=== PATIENT | female | born 1950 | race Caucasian/White ===

== ENCOUNTER 2022-10-06 16:30 | Inpatient (IN) | payer MEDICARE, MEDICAID, SELFPAY ==
[2022-10-06] VITALS (26 sets, daily range): BP systolic 128–179; BP diastolic 70–88; PULSE 92–109; RESP 18–27; TEMP 36.8–39.5; O2SAT 88–98
--- NOTE | ~2022-10-06 | CT_ITS ---
EXAMINATION: CTA chest PE protocol DATE: 10/06/2022 19:51 INDICATION: covid, tachycardia, SOB, concern PE TECHNIQUE: Computed tomography angiography (CTA) of the chest was performed with 100 mL Omnipaque-350 intravenous contrast timed to evaluate the pulmonary arteries. Coronal maximum intensity projection 3D-reconstructions were created by the technologist. The dose-length product (DLP) was 792.55 mGy-cm. Automated exposure control and iterative reconstruction technique were employed. COMPARISON: 10/06/2022. FINDINGS: Lung parenchyma and airways: Dependent atelectasis. Pleura: Unremarkable. Thoracic inlet, axillae and chest wall: Unremarkable. Thoracic aorta: Normal. Mediastinum: Dilated central pulmonary arteries as can be seen with pulmonary arterial hypertension. Heart and pericardium: Normal. Coronary artery calcifications: Mild. Upper abdomen: No significant finding. Bones: No acute osseous finding. Pulmonary arteries: Study quality: Motion limited examination. No pulmonary emboli detected. IMPRESSION: Motion limited examination. Within that constraint, no definite CT evidence of acute pulmonary embolu s. Reviewed, dictated and finalized at location K. HER RUNNER IMPRESSION: Motion limited examination. Within that constraint, no definite CT evidence of acute pulmonary embolus.
--- NOTE | ~2022-10-06 | XR_ITS ---
XR chest PICC line 10/09/2022 18:15 Indication: PICC line placement Procedure: AP portable chest Comparison: 10/06/2022 Findings: Right subclavian PICC line tip in the SVC. Shallow inspiration. No focal air space disease, pulmonary edema, pleural effusion or suspected pneumothorax. There is a sclerotic lesion in the left humerus which most likely represents a bone island, although metastatic disease is not excluded. Correlate for history of malignancy. Impression: 1: No acute cardiopulmonary disease. 2: Sclerotic lesion in the left humerus proximally which most likely represents a bone island, altho ugh metastatic disease is not excluded. Correlate for history of malignancy. Reviewed, dictated and finalized at location A. DRY WORKER Impression: 1: No acute cardiopulmonary disease. 2: Sclerotic lesion in the left humerus proximally which most likely represent s a bone island, although metastatic disease is not excluded. Correlate for his tory of malignancy.
--- NOTE | ~2022-10-06 | CT_ITS ---
EXAMINATION: CT brain wo con DATE: 10/07/2022 14:27 INDICATION: Altered mental status. TECHNIQUE: Computed tomography (CT) of the head was performed without intravenous contrast. The mA wa s adjusted according to patient size. Iterative reconstruction technique was employed. The dose-lengt h product was 605.33 mGy-cm. 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 There are scattered areas of low attenuation in the cerebral white matter, lik herson chronic small vessel ischemic disease. There is no intracranial hemorrhage, acute infarction, or abnormal intracranial mass lesion. There is ex vacuo dilatation of right lateral ventricle. There are likely changes of ocular lens replacement surgeries. The paranasal sinuses are clear. The mastoid ai r cells are normal. There is cerumen in right external auditory canal. IMPRESSION: 1. 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 Reviewed, dictated and finalized at location A. RIALS TECHNICIAN IMPRESSION: 1. 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
--- NOTE | ~2022-10-06 | US_ITS ---
EXAMINATION: US venous doppler [facility] DATE: 10/07/2022 17:26 INDICATION: covid +, BLE pain and swelling. TECHNIQUE: Grayscale images without and with compression and Doppler images of the bilateral lower ex tremity veins were obtained. COMPARISON: None FINDINGS: The right common femoral vein, profunda (deep) femoral vein, femoral vein, popliteal vein, peroneal v ein, posterior tibial veins, gastrocnemius vein, and greater saphenous vein are patent. The left common femoral vein, profunda femoral vein, femoral vein, popliteal vein, peroneal vein, pos terior tibial veins, gastrocnemius vein, and greater saphenous vein are patent. IMPRESSION: 1. Patent bilateral lower extremity veins. No evidence of deep venous thrombosis. Reviewed, dictated and finalized at location K. ETIC SURVEYOR IMPRESSION: 1. Patent bilateral lower extremity veins. No evidence of deep venous thrombos is.
--- NOTE | ~2022-10-06 | XR_ITS ---
EXAMINATION: XR chest 1V portable Exam Date/Time: 10/06/2022 16:55 MOSAICIST HISTORY: SOB, FEVER, COUGH, COVID + Comparison: None. RESULT: Lines, tubes, and devices: None. Lungs and pleura: Low volumes with crowding. Significant rotation. Ill-defined patchy bibasilar opac ities may represent atelectasis Cardiomediastinal silhouette: Stable. Other: No acute osseous or upper abdominal finding. IMPRESSION: Limited examination. No definite acute cardiopulmonary process. Reviewed, dictated and finalized at location K. ICIST
--- NOTE | 2022-10-06 16:53 | ED.GENADULT ---
HPI - General Adult General Chief complaint: Fever Stated complaint: COVID+ Time Seen by Provider: 10/06/22 16:36 History of Present Illness HPI narrative: 72-year-old female presented to the emergency department from [facility] for evaluation of increased difficulty breathing. Patient was diagnosed with COVID on 09/29. Patient was transferred due to hypoxia. Patient was placed on 4 L of oxygen by nasal cannula at the facility and was on 15 L nonrebreather by EMS. 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 Related Data Home Medications Medication Instructions Recorded Confirmed acetaminophen 500 mg tablet 500 mg PO Q6H PRN Pain 10/06/22 (Acetaminophen Extra Strength) buspirone 7.5 mg tablet 7.5 mg PO DAILY 10/06/22 ceftriaxone 1 gram intravenous IV ONCE 10/06/22 solution cholecalciferol (vitamin D3) 125 125 mcg PO DAILY 10/06/22 mcg (5,000 unit) tablet (Vitamin D3) cyanocobalamin (vitamin B-12) 500 500 mcg PO DAILY 10/06/22 mcg tablet (Vitamin B-12) duloxetine 60 mg capsule,delayed 60 mg PO DAILY 10/06/22 release furosemide 40 mg tablet (Lasix) 40 mg PO DAILY 10/06/22 gabapentin 300 mg capsule 300 mg PO TID 10/06/22 guaifenesin 600 mg tablet, 600 mg PO BID 10/06/22 extended release 12 hr (Mucinex) ibuprofen 600 mg tablet 600 mg PO Q6H PRN Pain 10/06/22 magnesium hydroxide 400 mg/5 mL 30 ml PO DAILY PRN Constipation 10/06/22 oral suspension (Milk of Magnesia) melatonin 3 mg tablet 6 mg PO HS PRN Insomnia 10/06/22 polyethylene glycol 3350 17 gram 17 g PO DAILY 10/06/22 oral powder packet (Gavilax) potassium chloride 20 mEq meq PO DAILY 10/06/22 tablet,extended release prednisone 10 mg tablet 30 mg PO DIRECTED 10/06/22 pregabalin 75 mg capsule (Lyrica) 75 mg PO BID 10/06/22 saliva stimulant comb. no.6 (Oral yoel 10/06/22 Relief Lozenges) sennosides 8.6 mg-docusate sodium 1 tab-cap PO BID 10/06/22 50 mg tablet tramadol 50 mg tablet 50 mg PO TID 10/06/22 undecylenic acid-zinc undecylenate applic topical TID 10/06/22 5 %-20 % topical cream Allergies Allergy/AdvReac Type Severity Reaction Status Date / Time No Known Allergies Allergy Verified 10/06/22 16:39 Review of Systems Review of Systems: CONSTITUTIONAL: Denies fever, chills, or sweats. EYES: Denies visual changes, redness, or discharge. ENT: Denies rhinorrhea, congestion, sore throat, or otalgia. CARDIOVASCULAR: Denies chest pain, palpitations, or edema. RESPIRATORY: See HPI GASTROINTESTINAL: Denies abdominal pain, nausea, vomiting, or diarrhea. GENITOURINARY: Denies dysuria or hematuria. SKIN: Denies rash or itching. MUSCULOSKELETAL: Patient reports chronic pain that is unchanged. NEUROLOGIC: Denies headache, numbness, or weakness. Exam Narrative: APPEARANCE: Well appearing, no pain, no distress, well-nourished. HEAD: normocephalic, atraumatic. EYES: PERRLA/EOMI, conjunctivae clear. NOSE: Normal no drainage NECK: Supple. No adenopathy, no masses. RESPIRATORY: Airway patent, respirations shallow but patient able to take deep breaths on respiration. Oxygenation improved with aggressive coughing. CARDIOVASCULAR: Regular rate and rhythm without murmurs rubs or gallops. ABDOMINAL: Soft, nontender, nondistended, normal bowel sounds MUSCULOSKELETAL: Moves all extremities. Strength/ROM intact, No edema, No calf tenderness. NEURO: Alert. Cranial nerves II through XII intact. Grossly intact SKIN: Warm, dry. Normal Color Course Course Emergency Course: Patient was febrile and this was treated with Tylenol and ibuprofen. Patient also had ice packs placed. Patient did become hypoxic to the 80s in the emergency department and did require oxygen. Patient did test positive for COVID. CTA was ordered to rule out pulmonary embolism. Discussion with the hospitalist it was also decided not to continue the patient on antibiotics due to no significant infiltra
--- NOTE | 2022-10-06 16:55 | PC.NURSE ---
NH staff advised pt last received 600mg Motrin at 1200 and 1g tylenol at 1400 today.
[2022-10-06] MEDS: IBUPROFEN 400 MG TABLET 800 MG PO (17:02)
[2022-10-06 17:15] LABS: Alveolar/Arterial O2 Gradient 45.1 mmHg; Base Excess ABG 2.8 mEq/l (+/-2.0); Fractional Inspired Oxygen 21 %; HCO3 ABG 26.5 mEq/l (22.0-26.0); Modified Allen's Test Pass; Oxygen Content ABG 19.8 %vol (16.0-22.0); Oxygen Saturation ABG 92.1 % (95.0-100.0); Oxyhemoglobin 90.6 % THb (90.0-100.0); PO2 ABG 59.1 mmHg (80.0-100.0); PO2 FiO2 Ratio Arterial Blood 2.81 %; Site Drawn LEFT RADIAL; Total Hemoglobin 15.6 g/dL (12.0-18.0); pH ABG 7.462 (7.350-7.450)
[2022-10-06 17:42] LABS: Basophils Absolute Auto 0.1 K/mm3 (0.0-0.1); Basophils Percent Auto 0.4 % (0.2-1.2); Hematocrit 46.1 % (37.0-47.0); Immature Granulocyte Absolute 0.32 K/mm3 (0.00-0.031); Immature Granulocyte Percent A 2.4 % (0-0.5); Lymphocytes Absolute Auto 1.57 K/mm3 (0.9-3.2); Lymphocytes Percent Auto 11.6 % (18.3-44.2); Mean Corpuscular HGB Conc 32.5 g/dl (32-36); Mean Corpuscular Hemoglobin 29.8 pg (26-34); Mean Corpuscular Volume 91.7 fl (80-100); Monocytes Absolute Auto 0.4 K/mm3 (0.1-0.6); Monocytes Percent Auto 3.1 % (2.6-8.5); Neutrophils Absolute Auto 11.2 K/mm3 (1.3-6.7); Neutrophils Percent Auto 82.5 % (45.5-73.1); Platelet Count Result 299 k/mm3 (150-375); Red Blood Count 5.03 M/mm3 (4.2-5.4); Red Cell Distribution Width 14.3 % (11.5-14.5); White Blood Count 13.5 K/mm3 (4.5-10.0)
[2022-10-06 18:00] LABS: Lactic Acid Reflex 3.2 mmol/L (0.7-2.0)
[2022-10-06] MEDS: ALBUTEROL SULFATE NEB 2.5 MG/3 ML INH 5 MG INHALATION (18:08)
[2022-10-06 18:20] LABS: Influenza A QL RT-PCR Negative (Negative); Influenza B QL RT-PCR Negative (Negative); RSV RNA, RT-PCR Negative (Negative); SARS-CoV-2 RNA PCR Positive
[2022-10-06 18:56] LABS: Alanine Aminotransferase 42 U/L (6-35); Albumin Level 4.1 g/dL (3.5-5.1); Alkaline Phosphatase 75 U/L (38-126); Anion Gap 8 mmol/L (8-16); Aspartate Amino Transferase 74 U/L (14-36); Bilirubin,Total 0.6 mg/dL (0.2-1.3); Blood Urea Nitrogen 17 mg/dL (7-17); Calcium 7.7 mg/dL (8.4-10.2); Carbon Dioxide 29 mmol/L (22-30); Chloride 94 mmol/L (98-107); Estimated CRCL calculation 79 ml/min; Estimated Glomerular Filt Rate > 60; Glucose 209 mg/dL (65-110); Sodium 131 mmol/L (137-145)
--- NOTE | 2022-10-06 20:18 | PM.IMHP ---
H&P: HPI History of Present Illness Date/Time: 10/06/22 20:18 Chief Complaint: Shortness of breath Narrative: This is a 72-year-old female with past medical history significant for generalized anxiety disorder, peripheral neuropathy, obesity. Patient was brought to the emergency room due to shortness of breath. In emergency room patient was found to have fever, patient tested positive for COVID. At the time of my visit patient was delirious unable to give any history which has been obtained upon reviewing medical record. Preliminary workup was significant for a blood gas was pH of 7.4, pCO2 38 PO2 59 A chest x-ray was reported as: IMPRESSION: Limited examination. No definite acute cardiopulmonary process. A CTA of the chest was reported as:\ FINDINGS:? Lung parenchyma and airways: Dependent atelectasis. Pleura: Unremarkable. Thoracic inlet, axillae and chest wall: Unremarkable. Thoracic aorta: Normal. Mediastinum: Dilated central pulmonary arteries as can be seen with pulmonary arterial hypertension. Heart and pericardium: Normal. Coronary artery calcifications: Mild. Upper abdomen: No significant finding. Bones: No acute osseous finding. Pulmonary arteries: Study quality: Motion limited examination. No pulmonary emboli detected. IMPRESSION: Motion limited examination. Within that constraint, no definite CT evidence of acute pulmonary embolus. Patient is been admitted for further evaluation management and treatment. Review of Systems Review of Systems: ROS unobtainable: Yes unobtainable due to mental status (Delirium) [facility] Social History Social History Smoking status: Never smoker Second hand tobacco smoke exposure: No Alcohol intake: never Substance use: never Substance use type: does not use Spiritual care concerns: No Meds Home Medications and Allergies Home Medications Medication Instructions Recorded Confirmed Type acetaminophen 500 mg tablet 500 mg PO Q6H PRN Pain 10/06/22 10/07/22 History (Acetaminophen Extra Strength) buspirone 7.5 mg tablet 7.5 mg PO DAILY 10/06/22 10/07/22 History cholecalciferol (vitamin D3) 125 125 mcg PO DAILY 10/06/22 10/07/22 History mcg (5,000 unit) tablet (Vitamin D3) cyanocobalamin (vitamin B-12) 500 500 mcg PO DAILY 10/06/22 10/07/22 History mcg tablet (Vitamin B-12) duloxetine 60 mg capsule,delayed 60 mg PO DAILY 10/06/22 10/07/22 History release furosemide 40 mg tablet (Lasix) 40 mg PO DAILY 10/06/22 10/07/22 History gabapentin 300 mg capsule 300 mg PO TID 10/06/22 10/07/22 History guaifenesin 600 mg tablet, 600 mg PO BID 10/06/22 10/07/22 History extended release 12 hr (Mucinex) ibuprofen 600 mg tablet 600 mg PO Q6H PRN Pain 10/06/22 10/07/22 History magnesium hydroxide 400 mg/5 mL 30 ml PO DAILY PRN Constipation 10/06/22 10/07/22 History oral suspension (Milk of Magnesia) melatonin 3 mg tablet 6 mg PO HS PRN Insomnia 10/06/22 10/07/22 History polyethylene glycol 3350 17 gram 17 g PO DAILY 10/06/22 10/07/22 History oral powder packet (Gavilax) potassium chloride 20 mEq 20 meq PO DAILY 10/06/22 10/07/22 History tablet,extended release prednisone 10 mg tablet 30 mg PO DIRECTED 10/06/22 10/07/22 History pregabalin 75 mg capsule (Lyrica) 75 mg PO BID 10/06/22 10/07/22 History saliva stimulant comb. no.6 (Oral 1 yoel PO PRN PRN Rash 10/06/22 10/07/22 History Relief Lozenges) sennosides 8.6 mg-docusate sodium 1 tab-cap PO BID 10/06/22 10/07/22 History 50 mg tablet tramadol 50 mg tablet 50 mg PO TID 10/06/22 10/07/22 History undecylenic acid-zinc undecylenate 1 applic topical TID PRN for 10/06/22 10/07/22 History 5 %-20 % topical cream fungal rash Allergies Allergy/AdvReac Type Severity Reaction Status Date / Time No Known Allergies Allergy Verified 10/06/22 16:39 Vital Signs Vital Signs - 24 hr 10/06/22 16:34 10/06/22 17:54 10/06/22 17:56 Temperature 102.9 F H 103.1 F H
[2022-10-06 20:40] LABS: Reflex Lactic Acid Yes or No Add Lactic
[2022-10-06] MEDS: IBUPROFEN IV 800 MG/200 ML 800 MG/200 ML BAG 400 MG IVPB (20:45)
[2022-10-06 21:44] LABS: Lactic Acid 1.4 mmol/L (0.7-2.0)
[2022-10-07] VITALS (16 sets, daily range): BP systolic 113–149; BP diastolic 50–85; PULSE 81–95; RESP 16–22; TEMP 36.6–37.1; O2SAT 94–99; BMI 42.2
[2022-10-07] MEDS: ALBUTEROL SULFATE NEB 2.5 MG/3 ML INH 5 MG INHALATION ×4 (02:41→21:08)
[2022-10-07] MEDS: cefTRIAXone 2 GM in SODIUM CHLORIDE 0.9% IV 100 ML 200 ML IVPB ×2 (02:43→21:39)
[2022-10-07] MEDS: polyethylene glycoL 3350 17 GM POWD.PACK PO (09:25)
[2022-10-07] MEDS: GABAPENTIN 300 MG CAPSULE PO ×3 (09:25→17:28)
[2022-10-07] MEDS: DULoxetine HCL 60 MG CAPSULE.DR PO (09:25)
[2022-10-07] MEDS: ENOXAPARIN 40 MG/0.4 ML SYRINGE SUB-Q (09:25)
[2022-10-07] MEDS: PREGABALIN (*CRX) 75 MG CAPSULE PO ×2 (09:26→17:28)
[2022-10-07] MEDS: CYANOCOBALAMIN 500 MCG TABLET PO (09:26)
[2022-10-07] MEDS: SENNA/DOCUSATE SODIUM TABLET 1 TAB PO ×2 (09:26→17:28)
[2022-10-07] MEDS: busPIRone HCL 5 MG TABLET PO (09:26)
[2022-10-07] MEDS: CHOLECALCIFEROL 1,000 UNITS TABLET 5000 UNITS PO (09:26)
[2022-10-07] MEDS: traMADol HCL (*CRX) 50 MG TABLET PO ×3 (09:26→17:28)
[2022-10-07] MEDS: busPIRone HCL 2.5 MG TABLET PO (09:26)
[2022-10-07] MEDS: guaiFENesin 12 HR 600 MG TABCR PO ×2 (09:26→17:28)
[2022-10-07 09:35] LABS: Glucose Point of Care 248 mg/dl (65-105)
[2022-10-07 09:38] LABS: Basophils Percent Auto 0.2 % (0.2-1.2); Hematocrit 42.6 % (37.0-47.0); Hemoglobin 14.2 g/dL (12.0-15.0); Immature Granulocyte Absolute 0.09 K/mm3 (0.00-0.031); Immature Granulocyte Percent A 0.9 % (0-0.5); Lymphocytes Absolute Auto 1.52 K/mm3 (0.9-3.2); Lymphocytes Percent Auto 14.5 % (18.3-44.2); Mean Corpuscular HGB Conc 33.3 g/dl (32-36); Mean Corpuscular Hemoglobin 30.3 pg (26-34); Mean Corpuscular Volume 90.8 fl (80-100); Mean Platelet Volume 10.4 fl (7.4-10.4); Monocytes Absolute Auto 0.5 K/mm3 (0.1-0.6); Monocytes Percent Auto 5.1 % (2.6-8.5); Neutrophils Absolute Auto 8.3 K/mm3 (1.3-6.7); Neutrophils Percent Auto 79.3 % (45.5-73.1); Platelet Count Result 241 k/mm3 (150-375); Red Blood Count 4.69 M/mm3 (4.2-5.4); White Blood Count 10.5 K/mm3 (4.5-10.0)
[2022-10-07 09:59] LABS: Alanine Aminotransferase 36 U/L (6-35); Albumin Level 4.1 g/dL (3.5-5.1); Alkaline Phosphatase 55 U/L (38-126); Anion Gap 10 mmol/L (8-16); Aspartate Amino Transferase 45 U/L (14-36); Bilirubin,Total 0.9 mg/dL (0.2-1.3); Blood Urea Nitrogen 21 mg/dL (7-17); CRP 0.6 mg/dL (<1.0); Calcium 7.7 mg/dL (8.4-10.2); Carbon Dioxide 28 mmol/L (22-30); Chloride 95 mmol/L (98-107); Estimated CRCL calculation 135 ml/min; Estimated Glomerular Filt Rate > 60; Glucose 229 mg/dL (65-110); Lactate Dehydrogenase 286 U/L (120-246); Potassium 4.3 mmol/L (3.4-5.0); Sodium 133 mmol/L (137-145)
--- NOTE | 2022-10-07 13:25 | PM.IMPN ---
Progress Note: A&P Assessment and Plan (1) COVID: Code(s): U07.1 - COVID-19 Status: Acute Assessment and Plan: -No infiltrates seen in CTA of the chest or chest x-ray, abx discontinued -CTA negative for PE but exam was limited by motion artifact, check venous dopplers to r/o DVT -continue dexamethasone -currently on 2L NC, no increasing oxygen requirement, will hold off on Remdesivir at this time. Will consider starting if oxygen requirement increases. -wean oxygen as tolerated -supportive care (2) Hypoxia: Code(s): R09.02 - Hypoxemia Status: Acute Assessment and Plan: -ABG from ED reviewed -plan as above (3) Acute metabolic encephalopathy: Code(s): G93.41 - Metabolic encephalopathy Status: Acute Assessment and Plan: -likely due to infection/fever secondary to above -will check CT head, UA, UDS Subjective Date/time seen: 10/07/22 13:25 Interval history: 72-year-old female with past medical history significant for generalized anxiety disorder, peripheral neuropathy, obesity, admitted for COVID and acute delirium. Pt A/O x 1-2, but answering questions appropriately and following commands. Reports all over pain which she states is chronic. Denies cp but reports mild sob. Review of Systems Review of Systems: ROS unobtainable: Yes unobtainable due to mental status Exam Narrative: General: No acute distress, chronically appearing, morbidly obese Eyes: PERRL, no scleral icterus HEENT: NCAT, external ears normal, dry mucous membranes Respiratory: No respiratory distress, speaking in full sentences, scattered rhonchi, currently on 2L NC Cardiovascular: RRR, no murmur Abdominal: Soft, nontender, non distended, no rebound or guarding Musculoskeletal: Moves all 4 extremities, no edema Neurological: A/Ox1-2, speech clear, no facial asymmetry Skin: Warm, dry, no rashes Psychiatric: Confused Objective Data Vital Signs Vital Signs: Vital Signs - 24 hr 10/06/22 16:34 10/06/22 17:54 10/06/22 17:56 Temperature 102.9 F H 103.1 F H Pulse Rate 109 H 99 Respiratory Rate 26 H 24 H Blood Pressure 157/81 H 179/82 H Pulse Oximetry 93 88 L 97 Oxygen Delivery Room Air Nasal Cannula Oxygen Flow Rate 2 10/06/22 18:00 10/06/22 18:10 10/06/22 19:04 Temperature 101.1 F H Pulse Rate 99 98 96 Respiratory Rate 25 H 24 H 24 H Blood Pressure 162/73 H Pulse Oximetry 98 Oxygen Delivery Oxygen Flow Rate 10/06/22 19:05 10/06/22 19:40 10/06/22 17:42 Temperature 101.1 F H Pulse Rate 100 Respiratory Rate 27 H Blood Pressure Pulse Oximetry 97 89 L Oxygen Delivery Nasal Cannula Oxygen Flow Rate 2 10/06/22 18:13 10/06/22 18:15 10/06/22 18:16 Temperature Pulse Rate 98 99 97 Respiratory Rate 26 H 27 H 18 Blood Pressure 176/86 H Pulse Oximetry 98 98 98 Oxygen Delivery Oxygen Flow Rate 10/06/22 18:30 10/06/22 18:31 10/06/22 18:45 Temperature Pulse Rate 100 97 96 Respiratory Rate 27 H 24 H 26 H Blood Pressure 159/77 H Pulse Oximetry 95 96 95 Oxygen Delivery Oxygen Flow Rate 10/06/22 19:06 10/06/22 19:15 10/06/22 19:17 Temperature Pulse Rate 97 97 96 Respiratory Rate 23 H 26 H 24 H Blood Pressure 144/88 H Pulse Oximetry 98 Oxygen Delivery Oxygen Flow Rate 10/06/22 19:30 10/06/22 19:56 10/06/22 20:00 Temperature Pulse Rate 93 95 94 Respiratory Rate 24 H 25 H 23 H Blood Pressure Pulse Oximetry 96 97 Oxygen Delivery Oxygen Flow Rate 10/06/22 20:22 10/06/22 20:30 10/06/22 21:33 Temperature 102.9 F H 99.6 F Pulse Rate 93 94 92 Respiratory Rate 24 H 24 H 23 H Blood Pressure 154/70 H Pulse Oximetry 97 97 96 Oxygen Delivery Oxygen Flow Rate 10/06/22 22:15 10/07/22 02:42 10/07/22 02:44 Temperature 98.2 F Pulse Rate 92 85 Respiratory Rate 20 20 Blood Pressure 128/83 Pulse Oximetry 96 95 Oxygen Deli
--- NOTE | 2022-10-07 15:52 | ECG_ITS ---
Measurements Intervals [place] Rate: 91 P: 34 AL: 129 QRS: -33 QRSD: 92 T: 57 QT: 362 QTc: 447 Interpretive Statements SINUS RHYTHM LEFT AXIS DEVIATION DELAYED PRECORDIAL R/S TRANSITION BASELINE WANDER- II, III, AVF BORDERLINE ECG NO PREVIOUS ECG AVAILABLE FOR COMPARISON Electronically Signed On 10-07-2022 20:41:12 FUEL OIL CLERK by Masoud Chairez D.O.
[2022-10-07 16:51] LABS: Glucose Point of Care 267 mg/dl (65-105)
[2022-10-07] MEDS: PANTOPRAZOLE 40 MG TABLET PO (17:28)
[2022-10-07] MEDS: INSULIN ASPART (*BKC) 100 UNITS/ML SUB-Q (17:28)
[2022-10-07] MEDS: MELATONIN 3 MG TABLET 6 MG PO (20:25)
[2022-10-08] VITALS (14 sets, daily range): BP systolic 135–154; BP diastolic 64–87; PULSE 83–95; RESP 16–18; TEMP 36.6–36.8; O2SAT 94–96
[2022-10-08] MEDS: ACETAMINOPHEN 500 MG TABLET PO (02:43)
[2022-10-08] MEDS: ALBUTEROL SULFATE NEB 2.5 MG/3 ML INH 5 MG INHALATION ×4 (02:49→22:38)
[2022-10-08 06:50] LABS: Basophils Percent Auto 0.1 % (0.2-1.2); Hematocrit 39.4 % (37.0-47.0); Immature Granulocyte Absolute 0.07 K/mm3 (0.00-0.031); Immature Granulocyte Percent A 0.6 % (0-0.5); Lymphocytes Absolute Auto 1.24 K/mm3 (0.9-3.2); Lymphocytes Percent Auto 10.4 % (18.3-44.2); Mean Corpuscular Hemoglobin 29.9 pg (26-34); Mean Corpuscular Volume 90.6 fl (80-100); Mean Platelet Volume 10.6 fl (7.4-10.4); Monocytes Absolute Auto 0.6 K/mm3 (0.1-0.6); Monocytes Percent Auto 5.4 % (2.6-8.5); Neutrophils Percent Auto 83.5 % (45.5-73.1); Platelet Count Result 222 k/mm3 (150-375); Red Blood Count 4.35 M/mm3 (4.2-5.4); Red Cell Distribution Width 13.5 % (11.5-14.5); White Blood Count 11.9 K/mm3 (4.5-10.0)
[2022-10-08 07:00] LABS: Alanine Aminotransferase 29 U/L (6-35); Alkaline Phosphatase 55 U/L (38-126); Anion Gap 9 mmol/L (8-16); Aspartate Amino Transferase 24 U/L (14-36); Bilirubin,Total 0.4 mg/dL (0.2-1.3); Blood Urea Nitrogen 22 mg/dL (7-17); Calcium 7.9 mg/dL (8.4-10.2); Carbon Dioxide 26 mmol/L (22-30); Chloride 90 mmol/L (98-107); Estimated CRCL calculation 82 ml/min; Estimated Glomerular Filt Rate > 60; Glucose 204 mg/dL (65-110); Potassium 3.9 mmol/L (3.4-5.0); Sodium 125 mmol/L (137-145)
[2022-10-08 08:11] LABS: Glucose Point of Care 197 mg/dl (65-105)
--- NOTE | 2022-10-08 08:40 | PM.IMPN ---
Progress Note: A&P Assessment and Plan (1) COVID: Code(s): U07.1 - COVID-19 Status: Acute Assessment and Plan: -No infiltrates seen in CTA of the chest or chest x-ray, abx wth ceftriaxone an dazithormycin. -CTA negative for PE but exam was limited by motion artifact,venous duplex neg -continue dexamethasone -currently on 2L NC, no increasing oxygen requirement, will hold off on Remdesivir at this time. Will consider starting if oxygen requirement increases. -wean oxygen as tolerated -supportive care (2) Hypoxia: Code(s): R09.02 - Hypoxemia Status: Acute Assessment and Plan: -ABG from ED reviewed -plan as above due to covid infection. cotnineu to taper as toelrated. (3) Acute metabolic encephalopathy: Code(s): G93.41 - Metabolic encephalopathy Status: Acute Assessment and Plan: -likely due to infection/fever secondary to above ct head negative. ua and UDS has not been colleceted yet. seems improving Plan hyponatremia; wornseing. 125. will add salt tablets today.recheck in am. chronic mild hyponatremia present bacteremia: ame cutlrue with [facility] 10/07 . will initiate vancomycin. repeat blod cultures Subjective Date/time seen: 10/08/22 08:40 Interval history: 72-year-old female with past medical history significant for generalized anxiety disorder, peripheral neuropathy, obesity, admitted for COVID and acute delirium. no overnight events, reports some cough and sob, no chest pain. more awake and alert Review of Systems Review of Systems: All systems reviewed & are unremarkable except as noted in HPI and below Exam Narrative: General: No acute distress, chronically appearing, morbidly obese Eyes: PERRL, no scleral icterus HEENT: NCAT, external ears normal, dry mucous membranes Respiratory: No respiratory distress, speaking in full sentences, scattered rhonchi, currently on 2L NC Cardiovascular: RRR, no murmur Abdominal: Soft, nontender, non distended, no rebound or guarding Musculoskeletal: Moves all 4 extremities, no edema Neurological: A/Ox1-2, speech clear, no facial asymmetry Skin: Warm, dry, no rashes Psychiatric: mildy confused, alerta nd awake, following commands, Objective Data Vital Signs Vital Signs: Vital Signs - 24 hr 10/07/22 09:50 10/07/22 10:05 10/07/22 10:06 Temperature Pulse Rate 83 87 Respiratory Rate 22 H 20 Blood Pressure Pulse Oximetry 95 Oxygen Delivery Nasal Cannula Oxygen Flow Rate 2 10/07/22 14:06 10/07/22 14:00 10/07/22 15:51 Temperature 97.8 F Pulse Rate 81 89 90 Respiratory Rate 20 18 20 Blood Pressure 133/85 113/50 L Pulse Oximetry 96 97 Oxygen Delivery Oxygen Flow Rate 10/07/22 15:52 10/07/22 20:17 10/07/22 21:05 Temperature 98.5 F Pulse Rate 92 90 90 Respiratory Rate 20 18 18 Blood Pressure 113/50 L 149/77 H Pulse Oximetry 97 99 Oxygen Delivery Oxygen Flow Rate 10/07/22 21:41 10/07/22 22:00 10/07/22 20:00 Temperature Pulse Rate 95 Respiratory Rate 17 Blood Pressure Pulse Oximetry 98 98 Oxygen Delivery Nasal Cannula Nasal Cannula Oxygen Flow Rate 2 2 10/08/22 02:51 10/08/22 03:20 10/08/22 05:47 Temperature 97.8 F Pulse Rate 95 94 90 Respiratory Rate 16 16 18 Blood Pressure 135/87 Pulse Oximetry 96 Oxygen Delivery Oxygen Flow Rate 10/08/22 08:07 10/08/22 08:09 10/08/22 08:22 Temperature Pulse Rate 88 90 Respiratory Rate 16 16 Blood Pressure Pulse Oximetry 94 Oxygen Delivery Nasal Cannula Oxygen Flow Rate 1 Intake/Output Intake/Output: Intake & Output 10/05/22 10/06/22 10/07/22 10/08/22 23:59 23:59 23:59 23:59 Intake Total 100 2090 550 Output Total 0 Balance 100 2090 550 Meds/Results Medications: Active Medications Generic Name Dose Route Start Last Admin Trade Name Freq PRN Reason Stop Dose Admin Acetaminophen 500 mg 10/07/22 0
[2022-10-08] MEDS: CHOLECALCIFEROL 1,000 UNITS TABLET 5000 UNITS PO (08:56)
[2022-10-08] MEDS: polyethylene glycoL 3350 17 GM POWD.PACK PO (08:56)
[2022-10-08] MEDS: PREGABALIN (*CRX) 75 MG CAPSULE PO ×2 (08:56→17:15)
[2022-10-08] MEDS: ENOXAPARIN 40 MG/0.4 ML SYRINGE SUB-Q (08:56)
[2022-10-08] MEDS: CYANOCOBALAMIN 500 MCG TABLET PO (08:56)
[2022-10-08] MEDS: GABAPENTIN 300 MG CAPSULE PO ×3 (08:56→17:15)
[2022-10-08] MEDS: traMADol HCL (*CRX) 50 MG TABLET PO ×3 (08:56→17:15)
[2022-10-08] MEDS: SENNA/DOCUSATE SODIUM TABLET 1 TAB PO ×2 (08:57→17:15)
[2022-10-08] MEDS: busPIRone HCL 2.5 MG TABLET PO (08:57)
[2022-10-08] MEDS: DULoxetine HCL 60 MG CAPSULE.DR PO (08:57)
[2022-10-08] MEDS: guaiFENesin 12 HR 600 MG TABCR PO ×2 (08:57→17:15)
[2022-10-08] MEDS: PANTOPRAZOLE 40 MG TABLET PO (08:58)
[2022-10-08] MEDS: busPIRone HCL 5 MG TABLET PO (08:58)
[2022-10-08 11:52] LABS: Glucose Point of Care 312 mg/dl (65-105)
[2022-10-08] MEDS: INSULIN ASPART (*BKC) 100 UNITS/ML SUB-Q ×2 (12:11→17:16)
[2022-10-08] MEDS: SODIUM CHLORIDE 500 MG TABLET PO ×2 (12:12→21:27)
[2022-10-08 16:34] LABS: Glucose Point of Care 267 mg/dl (65-105)
[2022-10-08] MEDS: cefTRIAXone 2 GM in SODIUM CHLORIDE 0.9% IV 100 ML 200 ML IVPB (20:33)
[2022-10-08 21:08] LABS: Glucose Point of Care 192 mg/dl (65-105)
[2022-10-09] VITALS (21 sets, daily range): BP systolic 95–149; BP diastolic 48–96; PULSE 69–165; RESP 16–21; TEMP 35.9–37.7; O2SAT 94–98
--- NOTE | 2022-10-09 00:37 | ECG_ITS ---
Measurements Intervals [place] Rate: 91 P: 33 TN: 122 QRS: -33 QRSD: 89 T: 52 QT: 344 QTc: 425 Interpretive Statements SINUS RHYTHM LEFT AXIS DEVIATION DELAYED PRECORDIAL R/S TRANSITION BASELINE ARTIFACT- I, III BORDERLINE ECG COMPARED TO ECG 10/07/2022 16:24:43 NO SIGNIFICANT CHANGES Electronically Signed On 10-09-2022 8:06:05 INK PRINTER by Masoud Chairez D.O.
[2022-10-09] MEDS: ACETAMINOPHEN 500 MG TABLET PO ×2 (01:14→20:16)
[2022-10-09] MEDS: MELATONIN 3 MG TABLET 6 MG PO (01:15)
[2022-10-09] MEDS: ALBUTEROL SULFATE NEB 2.5 MG/3 ML INH 5 MG INHALATION ×4 (03:15→20:16)
--- NOTE | 2022-10-09 06:46 | ECG_ITS ---
Measurements Intervals [place] Rate: 162 P: MT: 0 QRS: -12 QRSD: 86 T: 53 QT: 249 QTc: 409 Interpretive Statements SUPRAVENTRICULAR TACHYCARDIA BASELINE ARTIFACT- I, III, AVL, V6 ABNORMAL ECG COMPARED TO ECG 10/09/2022 00:50:48 SUPRAVENTRICULAR TACHYCARDIA NOW PRESENT Electronically Signed On 10-09-2022 8:08:17 BINDER STRIPPER MACHINE by Masoud Chairez D.O.
[2022-10-09 07:03] LABS: Basophils Percent Auto 0.1 % (0.2-1.2); Hematocrit 40.8 % (37.0-47.0); Immature Granulocyte Percent A 0.9 % (0-0.5); Lymphocytes Absolute Auto 1.15 K/mm3 (0.9-3.2); Lymphocytes Percent Auto 10.4 % (18.3-44.2); Mean Corpuscular HGB Conc 34.3 g/dl (32-36); Mean Corpuscular Hemoglobin 29.5 pg (26-34); Mean Corpuscular Volume 86.1 fl (80-100); Mean Platelet Volume 10.7 fl (7.4-10.4); Monocytes Absolute Auto 0.6 K/mm3 (0.1-0.6); Monocytes Percent Auto 5.3 % (2.6-8.5); Neutrophils Absolute Auto 9.3 K/mm3 (1.3-6.7); Neutrophils Percent Auto 83.3 % (45.5-73.1); Platelet Count Result 214 k/mm3 (150-375); Red Blood Count 4.74 M/mm3 (4.2-5.4); Red Cell Distribution Width 13.2 % (11.5-14.5); White Blood Count 11.1 K/mm3 (4.5-10.0)
[2022-10-09] MEDS: METOPROLOL TARTRATE INJ 5 MG/5 ML VIAL IV PUSH ×2 (07:11→08:21)
[2022-10-09 07:18] LABS: Alanine Aminotransferase 31 U/L (6-35); Alkaline Phosphatase 54 U/L (38-126); Anion Gap 6 mmol/L (8-16); Aspartate Amino Transferase 29 U/L (14-36); Bilirubin,Total 0.5 mg/dL (0.2-1.3); Blood Urea Nitrogen 21 mg/dL (7-17); Calcium 8.1 mg/dL (8.4-10.2); Carbon Dioxide 27 mmol/L (22-30); Chloride 88 mmol/L (98-107); Estimated CRCL calculation 82 ml/min; Estimated Glomerular Filt Rate > 60; Glucose 167 mg/dL (65-110); Magnesium 2.5 mg/dL (1.6-2.3); Potassium 4.1 mmol/L (3.4-5.0); Sodium 121 mmol/L (137-145)
[2022-10-09 07:55] LABS: Glucose Point of Care 170 mg/dl (65-105)
--- NOTE | 2022-10-09 07:55 | PC.NURSE ---
loading rack supervisor states there are no IMU beds at this time, pt will go on waiting list for higher level of care
[2022-10-09] MEDS: PREGABALIN (*CRX) 75 MG CAPSULE PO ×2 (08:21→18:21)
[2022-10-09] MEDS: traMADol HCL (*CRX) 50 MG TABLET PO ×3 (08:21→18:21)
[2022-10-09] MEDS: busPIRone HCL 5 MG TABLET PO (08:22)
[2022-10-09] MEDS: PANTOPRAZOLE 40 MG TABLET PO (08:22)
[2022-10-09] MEDS: guaiFENesin 12 HR 600 MG TABCR PO ×2 (08:22→18:23)
[2022-10-09] MEDS: busPIRone HCL 2.5 MG TABLET PO (08:22)
[2022-10-09] MEDS: CYANOCOBALAMIN 500 MCG TABLET PO (08:22)
[2022-10-09] MEDS: GABAPENTIN 300 MG CAPSULE PO ×3 (08:23→18:22)
[2022-10-09] MEDS: CHOLECALCIFEROL 1,000 UNITS TABLET 5000 UNITS PO (08:23)
[2022-10-09] MEDS: DULoxetine HCL 60 MG CAPSULE.DR PO (08:24)
[2022-10-09] MEDS: SODIUM CHLORIDE 500 MG TABLET PO ×2 (08:25→18:21)
[2022-10-09] MEDS: ENOXAPARIN 120 MG/0.8 ML SYRINGE 115 MG SUB-Q ×2 (09:37→20:09)
--- NOTE | 2022-10-09 09:46 | PC.NURSE ---
[facility] faxed to ICU for pending transfer
[2022-10-09] MEDS: dilTIAZem HCL 60 MG TABLET PO ×2 (10:35→12:41)
[2022-10-09] MEDS: dilTIAZem 100 MG/100 ML 100 MG/100 ML BAG IV CONT (11:14)
--- NOTE | 2022-10-09 11:20 | PC.NURSE ---
pt transferred to ICU room 11 via bed, placed on ICU monitor, reviewed plan of care with receiving unit
--- NOTE | 2022-10-09 11:26 | PC.NURSE ---
This patient, Shiela Calabrese, was received from 3 med/surg on 10/09/22 at 1107. Patient/family oriented to unit policies and routines
[2022-10-09 11:52] LABS: Glucose Point of Care 257 mg/dl (65-105)
[2022-10-09] MEDS: INSULIN ASPART (*BKC) 100 UNITS/ML SUB-Q ×2 (12:41→18:21)
[2022-10-09] MEDS: SODIUM CHLORIDE 0.9% IV 1,000 ML 125 ML IV CONT (13:39)
--- NOTE | 2022-10-09 14:35 | PC.NURSE ---
Pt noted having sodium level of 121. Dr. Edgar aware. New orders noted for NS at 125 ml/hr.
--- NOTE | 2022-10-09 14:40 | PC.NURSE ---
BP 85/40 with a MAP of 53. Dr. Edgar notified. New orders noted for 250 ml bolus of NS.
--- NOTE | 2022-10-09 15:20 | PC.NURSE ---
BP 85/44 with a MAP of 57. Dr. Edgar aware. New orders noted for flores catheter and 500 ml fluid bolus of NS.
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
[2022-10-09 16:41] LABS: Glucose Point of Care 217 mg/dl (65-105)
[2022-10-09] MEDS: SODIUM CHLORIDE 0.9% IV 250 ML 999 ML IV CONT (17:00)
[2022-10-09] MEDS: SODIUM CHLORIDE 0.9% IV 500 ML 999 ML IV CONT (17:01)
[2022-10-09] MEDS: SENNA/DOCUSATE SODIUM TABLET 1 TAB PO (18:22)
[2022-10-09] MEDS: dilTIAZem HCL 30 MG TABLET PO (18:24)
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
[2022-10-09 20:45] LABS: Vancomycin Trough 17.7 ug/mL (10.0-20.0)
[2022-10-09] MEDS: CENTRAL LINE FLUSH 10 ML IV PUSH (21:26)
[2022-10-09] MEDS: cefTRIAXone 2 GM in SODIUM CHLORIDE 0.9% IV 100 ML 200 ML IVPB (21:26)
[2022-10-10] VITALS (17 sets, daily range): BP systolic 111–155; BP diastolic 45–84; PULSE 68–89; RESP 13–24; TEMP 36.4–37.6; O2SAT 92–98
--- NOTE | 2022-10-10 | ECHO_ITS ---
Patient Info Name: Shiela Calabrese Age: 72 years : 1950 Gender: Female Ht: 65 in Wt: 253 lbs BSA: 2.35 m2 HR: 74 bpm BP: 123 / 49 mmHg Technical Quality: Poor Exam Date: 10/10/2022 7:34 AM Exam Location: [facility] Patient Status: Inpatient Admit Date: 10/06/2022 Staff Ordering Physician: Igor Monahan MD Attending Provider: Jessica Acuna PA-C Referring Physician: Taniya CASTANON; Exam Type: CA echo doppler color flow Study Info Indications - atrial flutter Complete two-dimensional, color flow and Doppler transthoracic echocardiogram is performed with contrast to opacify the left ventricle and to improve the deliniation of the left ventricle endocardial borders. Contrast/Agitated Saline Contrast/Ag. Saline: Definity Amount: 4.00 ml Administered By: Emelina De La Cruz [facility] Reason for Poor Study: patient body habitus Summary 1. Technically difficult study, suboptimal image quality. Normal LV size, mild to moderate LVH. Normal LV systolic function, ejection fraction about 55-60%. Normal diastolic function. Normal mitral valve structure, no significant MR. Normal aortic valve structure, no significant stenosis, trivial aortic regurgitation. Trace TR, RVSP 28 mmHg. Sinus rhythm. Left Ventricle Left ventricular chamber dimension is normal. Left ventricular systolic function is normal, estimated at 55-60%. There is moderately increased left ventricular wall thickness. The left ventricular diastolic function is normal. Right Ventricle Right ventricular chamber dimension is normal. Right ventricular systolic function is normal. Left Atria Left atrial chamber dimension is normal. Right Atria Right atrial chamber dimension is normal. Aortic Valve The aortic valve is normal. There is no aortic valve stenosis. There is trace aortic valve regurgitation. Pulmonic Valve The pulmonic valve is normal. There is trace pulmonic regurgitation. Mitral Valve The mitral valve has normal leaflets. There is trace mitral valve regurgitation. Tricuspid Valve The tricuspid valve leaflets are normal. There is trace tricuspid valve regurgitation. Pericardium/Pleural The pericardium appears epicardial fat pad. Aorta The aortic root size at the sinus of Valsalva is normal. Left Ventricular Outflow Tract Name Value Normal LVOT 2D LVOT Diameter 2.1 cm LVOT Doppler LVOT Peak Gradient 6 mmHg LVOT Mean Gradient 3 mmHg LVOT VTI 26 cm LVOT VTI/AV VTI Ratio 0.9 LVOT Stroke Volume 91 ml LVOT CO 6.6 l/min LVOT CI 2.8 l/min/m2 Pulmonic Valve Name Value Normal PV Doppler
[2022-10-10] MEDS: dilTIAZem HCL 30 MG TABLET PO ×5 (00:40→23:19)
[2022-10-10] MEDS: ALBUTEROL SULFATE NEB 2.5 MG/3 ML INH 5 MG INHALATION ×4 (02:02→22:18)
[2022-10-10] MEDS: CENTRAL LINE FLUSH 10 ML IV PUSH ×3 (04:47→23:19)
[2022-10-10] MEDS: SODIUM CHLORIDE 0.9% IV 1,000 ML 125 ML IV CONT (04:50)
[2022-10-10 05:02] LABS: Hematocrit 33.3 % (37.0-47.0); Mean Corpuscular Hemoglobin 30.1 pg (26-34); Mean Corpuscular Volume 91.2 fl (80-100); Mean Platelet Volume 11.4 fl (7.4-10.4); Platelet Count Result 166 k/mm3 (150-375); Red Blood Count 3.65 M/mm3 (4.2-5.4); Red Cell Distribution Width 13.3 % (11.5-14.5); White Blood Count 8.8 K/mm3 (4.5-10.0)
[2022-10-10 05:17] LABS: Anion Gap 4 mmol/L (8-16); Blood Urea Nitrogen 19 mg/dL (7-17); Calcium 6.2 mg/dL (8.4-10.2); Carbon Dioxide 21 mmol/L (22-30); Chloride 101 mmol/L (98-107); Estimated CRCL calculation 111 ml/min; Estimated Glomerular Filt Rate > 60; Glucose 146 mg/dL (65-110); Potassium 3.8 mmol/L (3.4-5.0); Sodium 126 mmol/L (137-145)
[2022-10-10] MEDS: PERFLUTREN LIPID MICROSPHERES 1.5 ML VIAL DILUTED TO 10 ML TOTAL VOLUME IV PUSH (07:30)
[2022-10-10 08:23] LABS: Glucose Point of Care 186 mg/dl (65-105)
[2022-10-10] MEDS: traMADol HCL (*CRX) 50 MG TABLET PO ×3 (08:37→18:22)
[2022-10-10] MEDS: METOPROLOL SUCCINATE EXT REL 25 MG TABCR PO (08:37)
[2022-10-10] MEDS: CHOLECALCIFEROL 1,000 UNITS TABLET 5000 UNITS PO (08:37)
[2022-10-10] MEDS: ENOXAPARIN 120 MG/0.8 ML SYRINGE 115 MG SUB-Q (08:37)
[2022-10-10] MEDS: PREGABALIN (*CRX) 75 MG CAPSULE PO ×2 (08:37→18:22)
[2022-10-10] MEDS: PANTOPRAZOLE 40 MG TABLET PO (08:38)
[2022-10-10] MEDS: busPIRone HCL 2.5 MG TABLET PO (08:38)
[2022-10-10] MEDS: CYANOCOBALAMIN 500 MCG TABLET PO (08:38)
[2022-10-10] MEDS: guaiFENesin 12 HR 600 MG TABCR PO ×2 (08:38→18:22)
[2022-10-10] MEDS: SENNA/DOCUSATE SODIUM TABLET 1 TAB PO ×2 (08:38→18:22)
[2022-10-10] MEDS: GABAPENTIN 300 MG CAPSULE PO ×3 (08:38→18:22)
[2022-10-10] MEDS: busPIRone HCL 5 MG TABLET PO (08:38)
[2022-10-10] MEDS: DULoxetine HCL 60 MG CAPSULE.DR PO (08:38)
[2022-10-10] MEDS: SODIUM CHLORIDE 500 MG TABLET PO ×2 (08:39→18:22)
[2022-10-10] MEDS: polyethylene glycoL 3350 17 GM POWD.PACK PO (08:39)
[2022-10-10 10:03] LABS: Add Urine Microscopic? NO; Appearance Urine Clear (Clear); Bilirubin Urine Negative (Negative); Blood Urine Negative (Negative); Color Urine Yellow (Yellow); Glucose Urine UA Negative (Negative); Ketones Urine Negative (Negative); Leukocyte Esterase Ur Negative LEU/UL (Negative); Nitrate Urine Negative (Negative); Protein Urine Negative (Negative); Urobilinogen Urine 0.2 mg/dL (<2.0)
[2022-10-10 10:19] LABS: Mucus Urine Rare /lpf; RBC Urine 0-2 /hpf (0-2); Squamous Epithelial Cell Urine Rare /hpf (Few); WBC Urine 0-3 /hpf
[2022-10-10 10:28] LABS: Amphetamine Screen Urine Negative (Negative); Barbiturate Screen Urine Negative (Negative); Benzodiazepines Screen Urine Negative (Negative); Cannabinoid Screen Urine Negative (Negative); Cocaine Screen Urine Negative (Negative); Methadone Screen Urine Negative (Negative); Opiate Screen Urine Negative (Negative); Phencyclidine Screen Urine Negative (Negative)
--- NOTE | 2022-10-10 11:04 | PM.PNCARD ---
Progress Note: A&P Assessment and Plan (1) Supraventricular tachycardia: Code(s): I47.1 - Supraventricular tachycardia Status: Acute Assessment and Plan: Currently in sinus rhythm. -continue metoprolol succinate and diltiazem. May switch diltiazem to long-acting diltiazem. -check echocardiogram with Doppler to rule out any major structural heart disease. -continue to monitor on telemetry for now. -other medical management as per primary team. Subjective Date/time seen: 10/10/22 11:04 Interval history: Date of service 10/10/2022-patient denies chest pain or shortness of breath at present. On telemetry, she has been in sinus rhythm. Exam Narrative: PHYSICAL EXAMINATION: GENERAL: Obese, anxious MENTAL STATUS: Anxious EYES: Extraocular movements intact, no pallor EARS: External ears appear normal, hearing grossly normal NOSE: Normal and patent, no discharge MOUTH: Mucous membranes moist, tongue normal NECK: Supple, no JVD CHEST: clear to auscultation HEART: Normal rate, regular rhythm, normal S1 and S2, no audible murmurs ABDOMEN: Soft, nontender NEUROLOGICAL: Alert, speech coherent MUSCULOSKELETAL: no amputation EXTREMITIES: Mild pedal edema, no clubbing, no cyanosis SKIN: no rash on the exposed area, no cyanosis PSYCHIATRIC: Normal mood, appropriate affect Objective Data Vital Signs Vital Signs: Vital Signs - 24 hr 10/09/22 11:14 10/09/22 11:56 10/09/22 12:48 Temperature 36.7 C Pulse Rate 148 H 146 H Respiratory Rate Blood Pressure 104/65 118/80 Pulse Oximetry Oxygen Delivery 10/09/22 13:55 10/09/22 14:11 10/09/22 14:00 Temperature 37.6 C Pulse Rate 81 80 78 Respiratory Rate 21 H 19 18 Blood Pressure 104/74 Pulse Oximetry 94 Oxygen Delivery 10/09/22 14:45 10/09/22 16:00 10/09/22 12:00 Temperature 37.4 C Pulse Rate 74 Respiratory Rate 19 Blood Pressure 102/54 L 119/68 Pulse Oximetry 98 96 Oxygen Delivery Room Air 10/09/22 16:00 10/09/22 18:00 10/09/22 20:17 Temperature 37.7 C H Pulse Rate 74 74 Respiratory Rate 16 17 Blood Pressure 115/59 L Pulse Oximetry 96 97 94 Oxygen Delivery Room Air Room Air 10/09/22 20:17 10/09/22 20:00 10/09/22 20:00 Temperature 36.6 C Pulse Rate 74 75 75 Respiratory Rate 17 17 20 Blood Pressure 95/51 L Pulse Oximetry 94 95 Oxygen Delivery Room Air 10/09/22 20:42 10/09/22 22:00 10/10/22 00:00 Temperature Pulse Rate 75 69 69 Respiratory Rate 19 19 Blood Pressure 108/48 L Pulse Oximetry 95 95 Oxygen Delivery Room Air 10/10/22 00:00 10/10/22 02:02 10/10/22 02:02 Temperature 37.6 C Pulse Rate 73 69 69 Respiratory Rate 19 17 17 Blood Pressure 121/54 L Pulse Oximetry 95 97 Oxygen Delivery Room Air 10/10/22 02:00 10/10/22 02:20 10/10/22 04:00 Temperature Pulse Rate 70 68 73 Respiratory Rate 18 16 Blood Pressure 111/45 L Pulse Oximetry 95 92 Oxygen Delivery Room Air 10/10/22 04:00 10/10/22 06:00 10/10/22 08:37 Temperature 37.5 C Pulse Rate 73 72 75 Respiratory Rate 16 Blood Pressure 122/51 L 123/49 L Pulse Oximetry 92 97 Oxygen Delivery 10/10/22 08:00 10/10/22 08:00 10/10/22 10:00 Temperature 36.4 C 36.4 C Pulse Rate 72 69 Respiratory Rate 18 13 17 Blood Pressure 150/60 H 155/74 H Pulse Oximetry 96 98 96 Oxygen Delivery Room Air Intake/Output Intake/Output: Intake & Output 10/07/22 10/08/22 10/09/22 10/10/22 23:59 23:59 23:59 23:59 Intake Total 2090 2342 2870 740 Output Total 0 350 750 Balance 2090 2342 2520 -10 Meds/Results Medications: Active Medications Generic Name Dose Route Start Last Admin Trade Name Freq PRN Reason Stop Dose Admin Acetaminophen 500 mg 10/07/22 01:42 10/09/22 20:16 Acetaminophen 500 Mg Tablet PO 500 mg Q6H PRN Administration Pain Rated 1-3 Albuterol 5 mg 10/07/22 02:00 10/10/22 08:50 Albuterol Sulfate Neb 2.5 Mg/3
[2022-10-10 11:32] LABS: Glucose Point of Care 221 mg/dl (65-105)
[2022-10-10] MEDS: INSULIN ASPART (*BKC) 100 UNITS/ML SUB-Q (12:02)
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
--- NOTE | 2022-10-10 14:38 | PC.NURSE ---
This patient, Shiela Calabrese, was transferred to [facility] on 10/10/22 at 1438. Personal belongings sent with patient. Report given to Guido. Appropriate documentation sent with patient.
--- NOTE | 2022-10-10 14:58 | PC.NURSE ---
This patient, Shiela Calabrese, was received from ICU 11 on 10/10/22 at 1458. Patient/family oriented to unit policies and routines.
[2022-10-10 16:58] LABS: Glucose Point of Care 193 mg/dl (65-105)
--- NOTE | 2022-10-10 21:18 | PC.NURSE ---
This patient, Shiela Calabrese, was transferred to [[facility]] on 10/10/22 at 2105. Personal belongings sent with patient. Report given to [AMBER Ferro]. Appropriate documentation sent with patient.
[2022-10-10] MEDS: MELATONIN 3 MG TABLET 6 MG PO (23:20)
[2022-10-10] MEDS: ENOXAPARIN 40 MG/0.4 ML SYRINGE SUB-Q (23:20)
[2022-10-10] MEDS: cefTRIAXone 2 GM in SODIUM CHLORIDE 0.9% IV 100 ML 200 ML IVPB (23:24)
[2022-10-11] VITALS (14 sets, daily range): BP systolic 134–156; BP diastolic 58–72; PULSE 67–90; RESP 18–24; TEMP 35.9–36.7; O2SAT 94–97
--- NOTE | 2022-10-11 04:41 | PC.NURSE ---
Arrived from IMU to [facility] via bed at 2100. Pt alert to self and aware in hospital. Repeats self. Cannot state how old she is, only the date she was born. Tele applied SR. Denies pain. FR PICC line flushed as well as saline lock. Multiple IVPB due at same time. Called IMU for meds and antibiotics. IMU sent vanco and meds Stated did not have other 2 due antibiotics. Pharmacy sent via tube when requested. Turn repositioned. Pt obese. difficult to move, pt does not reposition self. Pt does not want to use hands to cover herself. Asks staff to help her. Pt hands and arms move well. Koehler draining well
[2022-10-11] MEDS: CENTRAL LINE FLUSH 10 ML IV PUSH ×3 (06:00→21:26)
[2022-10-11] MEDS: dilTIAZem HCL 30 MG TABLET PO ×2 (06:00→12:41)
[2022-10-11 06:06] LABS: Hematocrit 37.4 % (37.0-47.0); Hemoglobin 12.4 g/dL (12.0-15.0); Mean Corpuscular HGB Conc 33.2 g/dl (32-36); Mean Corpuscular Hemoglobin 29.2 pg (26-34); Mean Platelet Volume 11.8 fl (7.4-10.4); Platelet Count Result 195 k/mm3 (150-375); Red Blood Count 4.25 M/mm3 (4.2-5.4); Red Cell Distribution Width 13.5 % (11.5-14.5); White Blood Count 11.3 K/mm3 (4.5-10.0)
[2022-10-11] MEDS: ALBUTEROL SULFATE NEB 2.5 MG/3 ML INH 5 MG INHALATION ×3 (08:12→20:47)
[2022-10-11 08:19] LABS: Glucose Point of Care 155 mg/dl (65-105)
[2022-10-11] MEDS: PREGABALIN (*CRX) 75 MG CAPSULE PO ×2 (08:44→15:50)
[2022-10-11] MEDS: GABAPENTIN 300 MG CAPSULE PO ×3 (08:44→15:50)
[2022-10-11] MEDS: busPIRone HCL 5 MG TABLET PO (08:44)
[2022-10-11] MEDS: METOPROLOL SUCCINATE EXT REL 25 MG TABCR PO (08:44)
[2022-10-11] MEDS: DULoxetine HCL 60 MG CAPSULE.DR PO (08:44)
[2022-10-11] MEDS: polyethylene glycoL 3350 17 GM POWD.PACK PO (08:44)
[2022-10-11] MEDS: ENOXAPARIN 40 MG/0.4 ML SYRINGE SUB-Q ×2 (08:44→20:17)
[2022-10-11] MEDS: busPIRone HCL 2.5 MG TABLET PO (08:46)
[2022-10-11] MEDS: SODIUM CHLORIDE 500 MG TABLET PO ×2 (08:46→15:50)
[2022-10-11] MEDS: ACETAMINOPHEN 500 MG TABLET PO (08:46)
[2022-10-11] MEDS: SENNA/DOCUSATE SODIUM TABLET 1 TAB PO ×2 (08:46→15:50)
[2022-10-11] MEDS: PANTOPRAZOLE 40 MG TABLET PO (08:46)
[2022-10-11] MEDS: CHOLECALCIFEROL 1,000 UNITS TABLET 5000 UNITS PO (08:46)
[2022-10-11] MEDS: traMADol HCL (*CRX) 50 MG TABLET PO ×3 (08:47→15:50)
[2022-10-11] MEDS: guaiFENesin 12 HR 600 MG TABCR PO ×2 (08:47→15:50)
[2022-10-11] MEDS: CYANOCOBALAMIN 500 MCG TABLET PO (08:47)
[2022-10-11 10:31] LABS: Anion Gap 8 mmol/L (8-16); Blood Urea Nitrogen 19 mg/dL (7-17); Carbon Dioxide 24 mmol/L (22-30); Chloride 98 mmol/L (98-107); Estimated CRCL calculation 94 ml/min; Estimated Glomerular Filt Rate > 60; Glucose 144 mg/dL (65-110); Magnesium 2.4 mg/dL (1.6-2.3); Potassium 5.5 mmol/L (3.4-5.0); Sodium 130 mmol/L (137-145)
[2022-10-11 12:08] LABS: Glucose Point of Care 240 mg/dl (65-105)
[2022-10-11] MEDS: INSULIN ASPART (*BKC) 100 UNITS/ML SUB-Q (12:41)
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
--- NOTE | 2022-10-11 13:51 | PM.PNCARD ---
Progress Note: A&P Assessment and Plan (1) Supraventricular tachycardia: Code(s): I47.1 - Supraventricular tachycardia Status: Acute Assessment and Plan: Patient has remained in sinus rhythm. Echocardiogram which I personally evaluated shows normal LV systolic function. -continue diltiazem CD. - may continue to monitor on telemetry for now. -other medical management as per primary team. -Cardiology will follow-up on p.r.n. basis. Outpatient Cardiology follow-up. Subjective Date/time seen: 10/11/22 13:51 Interval history: Date of service 10/10/2022-patient denies chest pain or shortness of breath at present. On telemetry, she has been in sinus rhythm. Date of service 10/11/2022- patient reports generalized fatigue. On telemetry, she has been in sinus rhythm. Echocardiogram showed normal LV systolic function. Exam Narrative: PHYSICAL EXAMINATION: GENERAL: Obese, anxious MENTAL STATUS: anxious EYES: Extraocular movements intact, no pallor EARS: External ears appear normal, hearing grossly normal NOSE: Normal and patent, no discharge MOUTH: Mucous membranes moist, tongue normal NECK: Supple, thick neck CHEST: diminished breath sounds due to body habitus HEART: Normal rate, regular rhythm, normal S1 and S2 ABDOMEN: Soft, nontender NEUROLOGICAL: Alert, normal speech MUSCULOSKELETAL: no amputation EXTREMITIES: pedal edema, no clubbing, no cyanosis SKIN: no rash on the exposed area, no cyanosis PSYCHIATRIC: anxious Objective Data Vital Signs Vital Signs: Vital Signs - 24 hr 10/10/22 14:00 10/10/22 16:00 10/10/22 16:00 Temperature 37.2 C 37.1 C Pulse Rate 75 75 73 Respiratory Rate 20 18 Blood Pressure 150/69 H Pulse Oximetry 96 96 Oxygen Delivery 10/10/22 15:09 10/10/22 15:26 10/10/22 20:00 Temperature Pulse Rate 73 73 Respiratory Rate 18 18 16 Blood Pressure Pulse Oximetry 98 Oxygen Delivery Room Air 10/10/22 20:00 10/10/22 21:07 10/10/22 22:18 Temperature 36.4 C Pulse Rate 78 76 71 Respiratory Rate 22 H 18 Blood Pressure 154/84 H Pulse Oximetry 95 94 Oxygen Delivery Room Air 10/10/22 22:18 10/11/22 00:00 10/11/22 00:00 Temperature 36.7 C Pulse Rate 71 74 75 Respiratory Rate 18 22 H Blood Pressure 152/67 H Pulse Oximetry 96 Oxygen Delivery 10/11/22 04:00 10/11/22 04:00 10/11/22 08:00 Temperature 36.4 C Pulse Rate 76 78 72 Respiratory Rate 20 18 Blood Pressure 156/60 H Pulse Oximetry 96 Oxygen Delivery 10/11/22 08:13 10/11/22 08:14 10/11/22 08:44 Temperature Pulse Rate 72 74 75 Respiratory Rate 18 Blood Pressure Pulse Oximetry 94 Oxygen Delivery Room Air 10/11/22 08:00 10/11/22 08:00 10/11/22 08:00 Temperature 36.2 C L Pulse Rate 71 78 Respiratory Rate 20 Blood Pressure 146/58 H Pulse Oximetry 95 Oxygen Delivery Room Air 10/11/22 12:28 Temperature Pulse Rate 70 Respiratory Rate 18 Blood Pressure Pulse Oximetry Oxygen Delivery Intake/Output Intake/Output: Intake & Output 10/08/22 10/09/22 10/10/22 10/11/22 23:59 23:59 23:59 23:59 Intake Total 2342 2870 1560 1100 Output Total 0 220 577 5963 Balance 2342 2520 610 -300 Meds/Results Medications: Active Medications Generic Name Dose Route Start Last Admin Trade Name Freq PRN Reason Stop Dose Admin Acetaminophen 500 mg 10/07/22 01:42 10/11/22 08:46 Acetaminophen 500 Mg Tablet PO 500 mg Q6H PRN Administration Pain Rated 1-3 Albuterol 5 mg 10/07/22 02:00 10/11/22 12:27 Albuterol Sulfate Neb 2.5 Mg/3 Ml Inh INHALATION 5 mg Q6HRT NAZANIN Administration Buspirone HCl 2.5 mg 10/07/22 09:00 10/11/22 08:46 Buspirone Hcl 2.5 Mg Tablet PO 2.5 mg DAILY NAZANIN Administration Buspirone HCl 5 mg 10/07/22 09:00 10/11/22 08:44 Buspirone Hcl 5 Mg Tablet PO 5 mg DAILY NAZANIN Administration Cyanocobalamin 500 mcg 10/07/22 09:00 10/11/22 0
[2022-10-11] MEDS: FUROSEMIDE INJ 40 MG/4 ML VIAL IV PUSH (15:49)
[2022-10-11] MEDS: methylPREDNISolone SOD SUCC 40 MG VIAL 30 MG IV PUSH ×2 (15:50→21:26)
[2022-10-11 17:13] LABS: Glucose Point of Care 149 mg/dl (65-105)
[2022-10-11 17:55] LABS: Vancomycin Trough 14.8 ug/mL (10.0-20.0)
[2022-10-11] MEDS: MELATONIN 3 MG TABLET 6 MG PO (20:24)
[2022-10-11 20:48] LABS: Glucose Point of Care 254 mg/dl (65-105)
[2022-10-11] MEDS: cefTRIAXone 2 GM in SODIUM CHLORIDE 0.9% IV 100 ML 200 ML IVPB (21:26)
[2022-10-12] VITALS (14 sets, daily range): BP systolic 144–159; BP diastolic 60–82; PULSE 74–83; RESP 18–20; TEMP 36.2–37.2; O2SAT 94–100
--- NOTE | 2022-10-12 03:43 | PCRCNOTE ---
Window of time for administration has passed. See next scheduled administration.
[2022-10-12] MEDS: methylPREDNISolone SOD SUCC 40 MG VIAL 30 MG IV PUSH ×3 (05:31→20:58)
[2022-10-12] MEDS: CENTRAL LINE FLUSH 10 ML IV PUSH ×3 (05:31→20:59)
[2022-10-12] MEDS: CENTRAL LINE FLUSH 20 ML IV PUSH (05:32)
[2022-10-12 05:45] LABS: Hematocrit 41.3 % (37.0-47.0); Hemoglobin 13.9 g/dL (12.0-15.0); Mean Corpuscular HGB Conc 33.7 g/dl (32-36); Mean Corpuscular Hemoglobin 30.3 pg (26-34); Mean Corpuscular Volume 90.2 fl (80-100); Mean Platelet Volume 11.4 fl (7.4-10.4); Platelet Count Result 224 k/mm3 (150-375); Red Blood Count 4.58 M/mm3 (4.2-5.4); Red Cell Distribution Width 13.9 % (11.5-14.5); White Blood Count 13.5 K/mm3 (4.5-10.0)
[2022-10-12 08:36] LABS: Anion Gap 9 mmol/L (8-16); Blood Urea Nitrogen 20 mg/dL (7-17); Calcium 8.2 mg/dL (8.4-10.2); Carbon Dioxide 28 mmol/L (22-30); Chloride 94 mmol/L (98-107); Estimated CRCL calculation 82 ml/min; Estimated Glomerular Filt Rate > 60; Glucose 194 mg/dL (65-110); Magnesium 2.4 mg/dL (1.6-2.3); Potassium 4.4 mmol/L (3.4-5.0); Sodium 131 mmol/L (137-145)
[2022-10-12 08:48] LABS: Glucose Point of Care 200 mg/dl (65-105)
[2022-10-12] MEDS: ALBUTEROL SULFATE NEB 2.5 MG/3 ML INH 5 MG INHALATION ×3 (09:02→20:46)
[2022-10-12] MEDS: CHOLECALCIFEROL 1,000 UNITS TABLET 5000 UNITS PO (10:18)
[2022-10-12] MEDS: ENOXAPARIN 40 MG/0.4 ML SYRINGE SUB-Q ×2 (10:18→20:58)
[2022-10-12] MEDS: polyethylene glycoL 3350 17 GM POWD.PACK PO (10:18)
[2022-10-12] MEDS: traMADol HCL (*CRX) 50 MG TABLET PO ×3 (10:19→18:58)
[2022-10-12] MEDS: PREGABALIN (*CRX) 75 MG CAPSULE PO ×2 (10:19→18:59)
[2022-10-12] MEDS: SODIUM CHLORIDE 500 MG TABLET PO ×2 (10:19→18:58)
[2022-10-12] MEDS: FUROSEMIDE INJ 40 MG/4 ML VIAL IV PUSH (10:19)
[2022-10-12] MEDS: DULoxetine HCL 60 MG CAPSULE.DR PO (10:19)
[2022-10-12] MEDS: METOPROLOL SUCCINATE EXT REL 25 MG TABCR PO (10:19)
[2022-10-12] MEDS: PANTOPRAZOLE 40 MG TABLET PO (10:19)
[2022-10-12] MEDS: busPIRone HCL 5 MG TABLET PO (10:20)
[2022-10-12] MEDS: CYANOCOBALAMIN 500 MCG TABLET PO (10:20)
[2022-10-12] MEDS: guaiFENesin 12 HR 600 MG TABCR PO ×2 (10:20→18:59)
[2022-10-12] MEDS: SENNA/DOCUSATE SODIUM TABLET 1 TAB PO ×2 (10:20→18:59)
[2022-10-12] MEDS: GABAPENTIN 300 MG CAPSULE PO ×3 (10:20→18:59)
[2022-10-12] MEDS: busPIRone HCL 2.5 MG TABLET PO (10:20)
[2022-10-12 11:51] LABS: Glucose Point of Care 226 mg/dl (65-105)
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
[2022-10-12 16:53] LABS: Glucose Point of Care 227 mg/dl (65-105)
[2022-10-12 20:54] LABS: Glucose Point of Care 217 mg/dl (65-105)
[2022-10-12] MEDS: cefTRIAXone 2 GM in SODIUM CHLORIDE 0.9% IV 100 ML 200 ML IVPB (20:58)
[2022-10-12] MEDS: ACETAMINOPHEN 500 MG TABLET PO (22:48)
[2022-10-13] VITALS (8 sets, daily range): BP systolic 138; BP diastolic 59–68; PULSE 78–85; RESP 16–20; TEMP 36.4–36.9; O2SAT 92–94
[2022-10-13] MEDS: ALBUTEROL SULFATE NEB 2.5 MG/3 ML INH 5 MG INHALATION ×2 (02:40→10:33)
[2022-10-13] MEDS: methylPREDNISolone SOD SUCC 40 MG VIAL 30 MG IV PUSH ×2 (05:28→12:16)
[2022-10-13] MEDS: CENTRAL LINE FLUSH 10 ML IV PUSH ×2 (05:28→12:17)
[2022-10-13 06:49] LABS: Hematocrit 40.6 % (37.0-47.0); Hemoglobin 13.7 g/dL (12.0-15.0); Mean Corpuscular HGB Conc 33.7 g/dl (32-36); Mean Corpuscular Hemoglobin 29.6 pg (26-34); Mean Corpuscular Volume 87.7 fl (80-100); Mean Platelet Volume 10.9 fl (7.4-10.4); Platelet Count Result 264 k/mm3 (150-375); Red Blood Count 4.63 M/mm3 (4.2-5.4); White Blood Count 15.5 K/mm3 (4.5-10.0)
[2022-10-13 07:04] LABS: Anion Gap 7 mmol/L (8-16); Blood Urea Nitrogen 28 mg/dL (7-17); Calcium 8.3 mg/dL (8.4-10.2); Carbon Dioxide 30 mmol/L (22-30); Chloride 92 mmol/L (98-107); Estimated CRCL calculation 82 ml/min; Estimated Glomerular Filt Rate > 60; Glucose 196 mg/dL (65-110); Magnesium 2.5 mg/dL (1.6-2.3); Potassium 4.1 mmol/L (3.4-5.0); Sodium 129 mmol/L (137-145)
[2022-10-13 08:23] LABS: Glucose Point of Care 209 mg/dl (65-105)
[2022-10-13] MEDS: INSULIN ASPART (*BKC) 100 UNITS/ML SUB-Q ×2 (08:25→12:16)
[2022-10-13] MEDS: SODIUM CHLORIDE 500 MG TABLET PO (08:26)
[2022-10-13] MEDS: SENNA/DOCUSATE SODIUM TABLET 1 TAB PO (08:26)
[2022-10-13] MEDS: PREGABALIN (*CRX) 75 MG CAPSULE PO (08:26)
[2022-10-13] MEDS: CHOLECALCIFEROL 1,000 UNITS TABLET 5000 UNITS PO (08:26)
[2022-10-13] MEDS: traMADol HCL (*CRX) 50 MG TABLET PO ×2 (08:26→12:16)
[2022-10-13] MEDS: GABAPENTIN 300 MG CAPSULE PO ×2 (08:26→12:16)
[2022-10-13] MEDS: CYANOCOBALAMIN 500 MCG TABLET PO (08:26)
[2022-10-13] MEDS: FUROSEMIDE INJ 40 MG/4 ML VIAL IV PUSH (08:27)
[2022-10-13] MEDS: busPIRone HCL 5 MG TABLET PO (08:27)
[2022-10-13] MEDS: guaiFENesin 12 HR 600 MG TABCR PO (08:27)
[2022-10-13] MEDS: DULoxetine HCL 60 MG CAPSULE.DR PO (08:27)
[2022-10-13] MEDS: busPIRone HCL 2.5 MG TABLET PO (08:27)
[2022-10-13] MEDS: METOPROLOL SUCCINATE EXT REL 25 MG TABCR PO (08:27)
[2022-10-13] MEDS: ENOXAPARIN 40 MG/0.4 ML SYRINGE SUB-Q (08:27)
[2022-10-13] MEDS: PANTOPRAZOLE 40 MG TABLET PO (08:28)
[2022-10-13] MEDS: polyethylene glycoL 3350 17 GM POWD.PACK PO (08:28)
--- NOTE | 2022-10-13 11:03 | PCNWS ---
Weekly nutritional screen. Patient is tolerating current Diabetic diet with good appetite and adequate intake per patient report. No weight loss reported. No nutritional needs at this time.
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
[2022-10-13 12:13] LABS: Glucose Point of Care 256 mg/dl (65-105)
[2022-10-13] MEDS: NEOMYCIN/POLYMYXIN/BACITRACIN OINTMENT PACKET 1 PACKET (14:30)
== END 2022-10-13 15:05 | DRG 177 ==
LOC: ANHED 20:27 → ANH3MEDSUR 21:21 → ANHICU 10-09 10:56 → ANHIMU 10-10 14:07 → ANH3MEDSUR 10-10 21:31
PROVIDERS: Internal Medicine; Physician Assistant; Admitting Provider Internal Medicine; Emergency Provider Emergency Medicine; PCP Family Medicine; Visit Provider Family Medicine
DX: U07.1 COVID-19 (principal); G93.41 Metabolic encephalopathy; E87.1 Hypo-osmolality and hyponatremia; Z68.41 Body mass index [BMI] 40.0-44.9, adult; I48.92 Unspecified atrial flutter; I47.1 Supraventricular tachycardia; I95.9 Hypotension, unspecified; E66.01 Morbid (severe) obesity due to excess calories; F41.1 Generalized anxiety disorder; G89.29 Other chronic pain; G62.9 Polyneuropathy, unspecified; R09.02 Hypoxemia; Z87.820 Personal history of traumatic brain injury; Z99.3 Dependence on wheelchair; Z74.01 Bed confinement status
CPT/HCPCS: 36415; 36569; 36600; 70450; 71045; 71275; 80048; 80053; 80202; 80307; 81003; 82805; 82948; 83605; 83615; 83735; 85025; 85027; 86140; 87040; 87086; 87147; 87186; 87637; 93005; 93970; 94640; 96365; 96375; 99285; A9270; C1751; C8929; J0131; J0456; J0696; J1100; J1650; J1741; J1815; J1940; J2920; J3370; J7030; J7050; Q9957; Q9967

== ENCOUNTER 2023-04-27 20:22 | Emergency (ER) | payer MEDICARE, MEDICAID, SELFPAY ==
[2023-04-27] VITALS (12 sets, daily range): BP systolic 118–126; BP diastolic 54–60; PULSE 72–77; RESP 14–22; TEMP 36.7; O2SAT 93–97
--- NOTE | ~2023-04-27 | XR_ITS ---
XR chest 2V 04/27/2023 22:05 Indication: Bilateral lower extremity edema. Procedure: 2 view chest Comparison: Comparison to multiple prior studies sequentially, with oldest reviewed study dated 12/2022. Findings: Heart size normal. No focal air space disease, pulmonary edema, pleural effusion or suspect ed pneumothorax. Sclerotic lesion in the left humeral head appears slightly increased in size compare d with prior study, possibly technical. Cannot exclude metastatic disease if there is clinical histor y of malignancy. Impression: 1: No acute cardiopulmonary disease. 2: Sclerotic lesion left humeral head. Consider metastatic disease if there is a clinical history of malignancy. Reviewed, dictated and finalized at location A. Impression: 1: No acute cardiopulmonary disease. 2: Sclerotic lesion left humeral head. Consider metastatic disease if there is a clinical history of malignancy.
--- NOTE | 2023-04-27 21:57 | PC.NURSE ---
pt off er floor for imaging @2061
[2023-04-27 22:00] LABS: Basophils Percent Auto 0.4 % (0.2-1.2); Eosinophils Absolute Auto 0.2 K/mm3 (0-0.3); Eosinophils Percent Auto 1.6 % (0-4.4); Hematocrit 43.3 % (37.0-47.0); Hemoglobin 13.6 g/dL (12.0-15.0); Immature Granulocyte Absolute 0.03 K/mm3 (0.00-0.031); Immature Granulocyte Percent A 0.3 % (0-0.5); Lymphocytes Absolute Auto 2.81 K/mm3 (0.9-3.2); Lymphocytes Percent Auto 27.1 % (18.3-44.2); Mean Corpuscular HGB Conc 31.4 g/dl (32-36); Mean Corpuscular Hemoglobin 28.8 pg (26-34); Mean Corpuscular Volume 91.7 fl (80-100); Mean Platelet Volume 10.2 fl (7.4-10.4); Monocytes Absolute Auto 0.6 K/mm3 (0.1-0.6); Neutrophils Absolute Auto 6.7 K/mm3 (1.3-6.7); Neutrophils Percent Auto 64.6 % (45.5-73.1); Platelet Count Result 256 k/mm3 (150-375); Red Blood Count 4.72 M/mm3 (4.2-5.4); Red Cell Distribution Width 14.6 % (11.5-14.5); White Blood Count 10.4 K/mm3 (4.5-10.0)
--- NOTE | 2023-04-27 22:19 | ED.EXTPRO ---
HPI - Extremity Problem General Chief complaint: Extremity Problem,Nontraumatic Stated complaint: PEDAL EDEMA & PAIN Time Seen by Provider: 04/27/23 21:30 Source: patient Mode of arrival: EMS Limitations: altered mental status (history of TBI with residual cognitive deficits) History of Present Illness HPI Narrative: This is a 72 year old female that presents to the ER for lower extremity edema. Reports pain in her feet. She was noted at nursing facility to have worsening pedal edema throughout the day. Patient otherwise has no complaints. Denies fever, chest pain or shortness of breath. Related Data Home Medications Medication Instructions Recorded Confirmed acetaminophen 500 mg tablet 500 mg PO Q6H PRN Pain 10/06/22 04/15/23 (Acetaminophen Extra Strength) buspirone 7.5 mg tablet 7.5 mg PO DAILY 10/06/22 04/15/23 cholecalciferol (vitamin D3) 125 125 mcg PO DAILY 10/06/22 04/15/23 mcg (5,000 unit) tablet (Vitamin D3) cyanocobalamin (vitamin B-12) 500 500 mcg PO DAILY 10/06/22 04/15/23 mcg tablet (Vitamin B-12) duloxetine 60 mg capsule,delayed 60 mg PO DAILY 10/06/22 04/15/23 release furosemide 40 mg tablet (Lasix) 40 mg PO DAILY 10/06/22 04/15/23 gabapentin 300 mg capsule 300 mg PO TID 10/06/22 04/15/23 guaifenesin 600 mg tablet, 600 mg PO BID 10/06/22 04/15/23 extended release 12 hr (Mucinex) ibuprofen 600 mg tablet 600 mg PO Q6H PRN Pain 10/06/22 04/15/23 magnesium hydroxide 400 mg/5 mL 30 ml PO DAILY PRN Constipation 10/06/22 04/15/23 oral suspension (Milk of Magnesia) melatonin 3 mg tablet 6 mg PO HS PRN Insomnia 10/06/22 04/15/23 polyethylene glycol 3350 17 gram 17 g PO DAILY 10/06/22 04/15/23 oral powder packet (Gavilax) potassium chloride 20 mEq 20 meq PO DAILY 10/06/22 04/15/23 tablet,extended release pregabalin 75 mg capsule (Lyrica) 75 mg PO BID 10/06/22 04/15/23 saliva stimulant comb. no.6 (Oral 1 yoel PO PRN PRN Rash 10/06/22 04/15/23 Relief Lozenges) sennosides 8.6 mg-docusate sodium 1 tab-cap PO BID 10/06/22 04/15/23 50 mg tablet tramadol 50 mg tablet 50 mg PO TID 10/06/22 04/15/23 undecylenic acid-zinc undecylenate 1 applic topical TID PRN for 10/06/22 04/15/23 5 %-20 % topical cream fungal rash Allergies Allergy/AdvReac Type Severity Reaction Status Date / Time No Known Allergies Allergy Verified 10/06/22 16:39 Review of Systems Review of Systems: ROS unobtainable: Yes unobtainable due to mental status PMFSH Past Medical History Medical History (Updated 04/28/23 @ 02:53 by Sindy Andrews PA-C) History of atrial flutter History of depression History of traumatic brain injury Social History Social History Smoking status: Never smoker Second hand tobacco smoke exposure: No Alcohol intake: never Substance use: never Substance use type: does not use Spiritual care concerns: No Exam Narrative: GENERAL: Elderly, well-nourished, and in no acute distress. HEAD: Normocephalic, atraumatic. EYES: PERRLA and EOMI. ENT: Nares clear, no rhinorrhea or epistaxis. Mucous membranes moist. Oropharynx without tonsillar hypertrophy exudate or other lesions. NECK: Supple. No adenopathy or masses. CHEST: Clear to auscultation. No respiratory distress. No wheezes rales or rhonchi HEART: Regular rate and rhythm. No murmur heard. Normal peripheral pulses. ABDOMEN: Soft, nontender, nondistended, normal active bowel sounds. EXTREMITIES: Edema noted to the bilateral feet into the lower legs. No erythema or warmth. Normal capillary refill SKIN: Warm, dry. Petechial rash noted to the legs, abdomen, and arms NEURO: No focal deficits. Alert and oriented x1. PSYCH: Normal mood and affect Course Course Emergency Course: Patient was updated on work-up Vital Signs Vital signs: Vital Signs Respiratory Rate 22 H 04/27/23 20:45 Blood Pressure 119/59 L 04/27/23 20:45 Pulse Oximetry 96 04/27/23 20:45 Oxygen Delivery Room Air 04/27/23 20:45 Temperat
--- NOTE | 2023-04-27 23:07 | PC.NURSE ---
handed off report and care to AMBER Shah. all questions answered.
[2023-04-28] LABS: Anion Gap 6 mmol/L (8-16); Blood Urea Nitrogen 17 mg/dL (7-17); Calcium 8.8 mg/dL (8.4-10.2); Carbon Dioxide 36 mmol/L (22-30); Chloride 97 mmol/L (98-107); Estimated CRCL calculation 75 ml/min; Estimated Glomerular Filt Rate > 60; Glucose 131 mg/dL (65-110); Potassium 3.9 mmol/L (3.4-5.0); Sodium 139 mmol/L (137-145)
[2023-04-28 00:08] LABS: NT Pro B Type Natriuretic Pept 136 pg/mL (19.9-100)
[2023-04-28 00:25] LABS: Alanine Aminotransferase 14 U/L (6-35); Albumin Level 3.8 g/dL (3.5-5.1); Alkaline Phosphatase 58 U/L (38-126); Aspartate Amino Transferase 24 U/L (14-36); Bilirubin,Total 0.4 mg/dL (0.2-1.3)
[2023-04-28 00:27] LABS: CRP 1.6 mg/dL (<1.0)
[2023-04-28 00:30] VITALS: BP 126/60; PULSE 73; RESP 20; O2SAT 97
[2023-04-28 01:03] LABS: Erythrocyte Sedimentation Rate 24 mm/hr (0-20)
[2023-04-28 02:27] LABS: D Dimer 0.45 ug/mL (<0.48)
[2023-04-28 02:30] VITALS: BP 103/53; PULSE 75; RESP 16; O2SAT 96
[2023-04-28 02:34] LABS: INR 0.9; Prothrombin Time 12.4 Seconds (11.1-14.7)
[2023-04-28 02:35] LABS: Partial Thromboplastin Time 30.4 SECONDS (22.3-36.8)
[2023-04-28 03:00] VITALS: BP 100/45; PULSE 74; RESP 16; O2SAT 97
[2023-04-28 04:34] VITALS: BP 110/46; PULSE 75; RESP 18; O2SAT 97
== END 2023-04-28 04:37 ==
PROVIDERS: Emergency Provider Physician Assistant; PCP Family Medicine
DX: R60.0 Localized edema (principal); M79.672 Pain in left foot; M79.671 Pain in right foot; I48.92 Unspecified atrial flutter; F32.A Depression, unspecified; Z87.820 Personal history of traumatic brain injury; M89.9 Disorder of bone, unspecified
CPT/HCPCS: 36415; 71046; 80048; 80076; 83880; 85025; 85380; 85610; 85652; 85730; 86140; 99283

== ENCOUNTER 2023-04-30 03:44 | Observation (INO) | payer MEDICARE, MEDICAID, SELFPAY ==
[2023-04-30] VITALS (12 sets, daily range): BP systolic 109–149; BP diastolic 59–76; PULSE 65–79; RESP 12–20; TEMP 36–36.6; O2SAT 92–100; BMI 45.6
--- NOTE | 2023-04-30 | ECHO_ITS ---
Patient Info Name: Shiela Calabrese Age: 72 years : 1950 Gender: Female Ht: 61 in Wt: 241 lbs BSA: 2.24 m2 HR: 78 bpm BP: 127 / 67 mmHg Heart Rhythm: Sinus Rhythm Technical Quality: Poor Exam Date: 04/30/2023 11:54 AM Exam Location: [facility] Pulmonary Exam Room: [facility] Patient Status: Inpatient Admit Date: 04/30/2023 Staff Ordering Physician: Igor Posada MD General Technician: Geetha Carl RDCS Attending Provider: John Wood MD Referring Physician: Albino CASTRO; Exam Type: CA echo dop color flow w con Study Info Indications - sob michele Complete two-dimensional, color flow and Doppler transthoracic echocardiogram is performed with contrast to opacify the left ventricle and to improve the deliniation of the left ventricle endocardial borders. Contrast/Agitated Saline Contrast/Ag. Saline: Definity Amount: 1.00 ml Administered By: Casi Neal RDCS Existing IV Access: Yes IV Access Condition: patent with no signs of infiltration Reason for Poor Study: patient body habitus Summary 1. Somewhat challenging image quality presumably because of obesity. 2. Definity contrast injected to improve visualization. 3. Normal left ventricular systolic function without wall motion abnormalities. 4. Grade 1 diastolic noncompliance. 5. No valvular dysfunction noted by Doppler. Left Ventricle Left ventricular chamber dimension is normal. Left ventricular systolic function is normal, estimated at Empty. The left ventricular diastolic function is grade I diastolic dysfunction. Right Ventricle Right ventricular chamber dimension is normal. Left Atria Left atrial chamber dimension is normal. Right Atria Right atrial chamber dimension is normal. Aortic Valve The aortic valve is normal. Pulmonic Valve The pulmonic valve is not well visualized. Mitral Valve The mitral valve has normal leaflets. Tricuspid Valve The tricuspid valve leaflets are normal. Pericardium/Pleural The pericardium appears normal. Aorta The aortic root size at the sinus of Valsalva is normal. Left Ventricular Outflow Tract Name Value Normal LVOT 2D LVOT Diameter 2.09 cm Pulmonic Valve Name Value Normal RVOT Doppler RVOT Peak Gradient 2 mmHg PV Doppler PV Peak Gradient 3 mmHg Mitral Valve Name Value Normal MV Doppler MV Decel [place] 348.45 cm/s2 MV PHT 0 s MV Area (PHT) 3.82 cm2 4.00-5.00 MV Diastolic Function MV E Peak Velocity 69.15 cm/s
--- NOTE | ~2023-04-30 | XR_ITS ---
Portable chest x-ray Comparison: 04/27/2023 Clinical History: Dyspnea Findings: Lungs are clear, without focal consolidation or pleural effusion. Cardiomediastinal silho uette is stable. Bones and soft tissues are unremarkable. Impression: Clear lungs. Reviewed, dictated and finalized at location . Impression: Clear lungs.
--- NOTE | ~2023-04-30 | US_ITS ---
Duplex Sonography of the bilateral lower extremities: Indication: Swelling Sagittal and transverse B-mode images as well as color-flow imaging were performed on the right and l eft femoral and popliteal veins. B-mode examination was done without and with compression in the tra nsverse plane. There is good visualization of the bilateral common femoral, proximal profunda femora l, superficial femoral, greater saphenous, and popliteal veins. Normal flow was seen on color-flow im aging. Normal compressibility was demonstrated. Visualized calf veins are also patent. Impression: No evidence of deep vein thrombosis involving either lower extremity. Reviewed, dictated and finalized at location M. Impression: No evidence of deep vein thrombosis involving either lower extremit y.
--- NOTE | 2023-04-30 03:51 | ECG_ITS ---
Measurements Intervals [place] Rate: 69 P: 33 ME: 142 QRS: -28 QRSD: 79 T: 46 QT: 403 QTc: 434 Interpretive Statements SINUS RHYTHM NORMAL ECG COMPARED TO ECG 10/09/2022 07:04:35 SINUS RHYTHM NOW PRESENT Electronically Signed On 04-30-2023 11:32:11 CDT by Masoud Chairez D.O.
--- NOTE | 2023-04-30 04:04 | ED.GENADULT ---
HPI - General Adult General Chief complaint: Shortness of Breath/Dyspnea Stated complaint: sob Time Seen by Provider: 04/30/23 03:51 History of Present Illness HPI narrative: Patient is a 72-year-old female who presents the emergency department with chief complaint of shortness of breath and peripheral edema. Per the prison staff patient has been a little bit more short of breath this evening particularly with laying flat he also has significant peripheral edema the patient has been seen by her primary care provider and was increased to 40 mg Lasix twice daily for 10 days patient has only had 1 dose of this so far [facility] the prison the facility decided to call EMS this evening since she has not had rapid improvement. Related Data Home Medications Medication Instructions Recorded Confirmed acetaminophen 500 mg tablet 500 mg PO Q6H PRN Pain 10/06/22 04/15/23 (Acetaminophen Extra Strength) buspirone 7.5 mg tablet 7.5 mg PO DAILY 10/06/22 04/15/23 cholecalciferol (vitamin D3) 125 125 mcg PO DAILY 10/06/22 04/15/23 mcg (5,000 unit) tablet (Vitamin D3) cyanocobalamin (vitamin B-12) 500 500 mcg PO DAILY 10/06/22 04/15/23 mcg tablet (Vitamin B-12) duloxetine 60 mg capsule,delayed 60 mg PO DAILY 10/06/22 04/15/23 release furosemide 40 mg tablet (Lasix) 40 mg PO DAILY 10/06/22 04/15/23 gabapentin 300 mg capsule 300 mg PO TID 10/06/22 04/15/23 guaifenesin 600 mg tablet, 600 mg PO BID 10/06/22 04/15/23 extended release 12 hr (Mucinex) ibuprofen 600 mg tablet 600 mg PO Q6H PRN Pain 10/06/22 04/15/23 magnesium hydroxide 400 mg/5 mL 30 ml PO DAILY PRN Constipation 10/06/22 04/15/23 oral suspension (Milk of Magnesia) melatonin 3 mg tablet 6 mg PO HS PRN Insomnia 10/06/22 04/15/23 polyethylene glycol 3350 17 gram 17 g PO DAILY 10/06/22 04/15/23 oral powder packet (Gavilax) potassium chloride 20 mEq 20 meq PO DAILY 10/06/22 04/15/23 tablet,extended release pregabalin 75 mg capsule (Lyrica) 75 mg PO BID 10/06/22 04/15/23 saliva stimulant comb. no.6 (Oral 1 yoel PO PRN PRN Rash 10/06/22 04/15/23 Relief Lozenges) sennosides 8.6 mg-docusate sodium 1 tab-cap PO BID 10/06/22 04/15/23 50 mg tablet tramadol 50 mg tablet 50 mg PO TID 10/06/22 04/15/23 undecylenic acid-zinc undecylenate 1 applic topical TID PRN for 10/06/22 04/15/23 5 %-20 % topical cream fungal rash Allergies Allergy/AdvReac Type Severity Reaction Status Date / Time No Known Allergies Allergy Verified 10/06/22 16:39 Review of Systems Review of Systems: A 10 system review of systems was completed on the patient and is negative except for what is stated in the HPI. Nursing and ancillary documentation was reviewed. [facility] Past Medical History Medical History History of atrial flutter History of depression History of traumatic brain injury Social History Social History Smoking status: Never smoker Second hand tobacco smoke exposure: No Alcohol intake: never Substance use: never Substance use type: does not use Spiritual care concerns: No Exam Narrative: GENERAL: Well-appearing, well-nourished, and in no acute distress. HEAD: Normocephalic, atraumatic. EYES: PERRLA and EOMI. ENT: Nares clear, no rhinorrhea or epistaxis. Mucous membranes moist. NECK: Supple. CHEST: Clear to auscultation. No respiratory distress. HEART: Regular rate and rhythm. No murmur heard. Normal peripheral pulses. ABDOMEN: Soft, nontender, nondistended, normal active bowel sounds. EXTREMITIES: Normal range of motion. 3+ edema. SKIN: Warm, dry, no rash. NEURO: No focal deficits. Alert and oriented x3. PSYCH: Normal mood and affect. Course Vital Signs Vital signs: Vital Signs Pulse Rate 70 04/30/23 03:49 Respiratory Rate 18 04/30/23 03:49 Blood Pressure 109/59 L 04/30/23 03:49 Pulse Oximetry 96
[2023-04-30 04:11] LABS: Basophils Percent Auto 0.4 % (0.2-1.2); Eosinophils Absolute Auto 0.2 K/mm3 (0-0.3); Eosinophils Percent Auto 1.9 % (0-4.4); Hematocrit 44.1 % (37.0-47.0); Hemoglobin 13.9 g/dL (12.0-15.0); Immature Granulocyte Absolute 0.02 K/mm3 (0.00-0.031); Immature Granulocyte Percent A 0.2 % (0-0.5); Lymphocytes Absolute Auto 2.44 K/mm3 (0.9-3.2); Lymphocytes Percent Auto 25.5 % (18.3-44.2); Mean Corpuscular HGB Conc 31.5 g/dl (32-36); Mean Corpuscular Volume 92.1 fl (80-100); Mean Platelet Volume 9.8 fl (7.4-10.4); Monocytes Absolute Auto 0.5 K/mm3 (0.1-0.6); Neutrophils Absolute Auto 6.4 K/mm3 (1.3-6.7); Platelet Count Result 237 k/mm3 (150-375); Red Blood Count 4.79 M/mm3 (4.2-5.4); Red Cell Distribution Width 14.6 % (11.5-14.5); White Blood Count 9.6 K/mm3 (4.5-10.0)
[2023-04-30 04:20] LABS: Lactic Acid Reflex 2.2 mmol/L (0.7-2.0)
[2023-04-30 04:22] LABS: Alanine Aminotransferase 17 U/L (6-35); Albumin Level 3.8 g/dL (3.5-5.1); Alkaline Phosphatase 64 U/L (38-126); Anion Gap 6 mmol/L (8-16); Aspartate Amino Transferase 22 U/L (14-36); Bilirubin,Total 0.4 mg/dL (0.2-1.3); Blood Urea Nitrogen 14 mg/dL (7-17); Calcium 8.8 mg/dL (8.4-10.2); Carbon Dioxide 38 mmol/L (22-30); Chloride 96 mmol/L (98-107); Estimated CRCL calculation 99 ml/min; Estimated Glomerular Filt Rate > 60; Glucose 125 mg/dL (65-110); INR 0.9; Magnesium 2.2 mg/dL (1.6-2.3); Potassium 3.9 mmol/L (3.4-5.0); Prothrombin Time 12.6 Seconds (11.1-14.7); Sodium 140 mmol/L (137-145)
[2023-04-30] MEDS: FUROSEMIDE INJ 40 MG/4 ML VIAL IV PUSH ×3 (04:22→20:45)
[2023-04-30 04:23] LABS: Partial Thromboplastin Time 28.5 SECONDS (22.3-36.8)
[2023-04-30 04:33] LABS: NT Pro B Type Natriuretic Pept 181 pg/mL (19.9-100); Troponin I < 0.012 ng/mL (0.000-0.034)
--- NOTE | 2023-04-30 05:49 | PC.NURSE ---
Pt is obese and in her current stretcher she is to large to turn to check bottom
--- NOTE | 2023-04-30 06:07 | PC.NURSE ---
Report given to Laura. This Rn told Laura that pt is to large to turn in bed and there for could not do a skin check.
[2023-04-30 07:09] LABS: Reflex Lactic Acid Yes or No Add Lactic
[2023-04-30 07:43] LABS: Lactic Acid 1.2 mmol/L (0.7-2.0)
[2023-04-30 07:55] LABS: Troponin I < 0.012 ng/mL (0.000-0.034)
[2023-04-30] MEDS: PANTOPRAZOLE 40 MG TABLET PO (09:53)
[2023-04-30] MEDS: busPIRone HCL 2.5 MG TABLET 7.5 MG PO (09:53)
[2023-04-30] MEDS: CYANOCOBALAMIN 500 MCG TABLET PO (09:53)
[2023-04-30] MEDS: dilTIAZem HCL CD 120 MG CAP.24HR PO (09:54)
[2023-04-30] MEDS: METOPROLOL SUCCINATE EXT REL 25 MG TABCR PO (09:54)
[2023-04-30] MEDS: POTASSIUM CHLORIDE 20 MEQ ER TABLET PO (09:56)
[2023-04-30] MEDS: guaiFENesin 12 HR 600 MG TABCR PO ×2 (09:56→17:16)
[2023-04-30] MEDS: DULoxetine HCL 60 MG CAPSULE.DR PO (09:57)
[2023-04-30] MEDS: GABAPENTIN 300 MG CAPSULE PO ×3 (09:57→17:15)
[2023-04-30] MEDS: CHOLECALCIFEROL 1,000 UNITS TABLET 5000 UNITS PO (09:57)
[2023-04-30] MEDS: SENNA/DOCUSATE SODIUM TABLET 1 TAB PO ×2 (09:57→17:16)
[2023-04-30] MEDS: polyethylene glycoL 3350 17 GM POWD.PACK PO (10:00)
[2023-04-30] MEDS: traMADol HCL (*CRX) 50 MG TABLET PO ×3 (10:00→17:15)
[2023-04-30] MEDS: PREGABALIN (*CRX) 75 MG CAPSULE PO ×2 (10:00→17:15)
--- NOTE | 2023-04-30 11:31 | PM.IMHP ---
H&P: HPI History of Present Illness Date/Time: 04/30/23 11:31 Chief Complaint: Patient is a 72-year-old female who presents the emergency department with chief complaint of shortness of breath and peripheral edema.? Per the group home staff patient has been a little bit more short of breath this evening particularly with laying flat he also has significant peripheral edema the patient has been seen by her primary care provider and was increased to 40 mg Lasix twice daily for 10 days patient has only had 1 dose of this so far at the group home the facility decided to call EMS this evening since she has not had rapid improvement. [facility] Past Medical History Medical History History of atrial flutter History of depression History of traumatic brain injury Social History Social History Smoking status: Former smoker Second hand tobacco smoke exposure: No Alcohol intake: never Substance use: never Substance use type: does not use Lack of Transportation: No Lack of Food: Never True Current Housing: I Have Housing Concerned About Future Housing: No Difficulty Paying Gas/Electric Bills: No Difficulty Paying for Meds: No Currently Unemployed: No Education: Grade School Difficulty w/ Childcare or Family Care: No Spiritual care concerns: No Meds Home Medications and Allergies Home Medications Medication Instructions Recorded Confirmed Type acetaminophen 500 mg tablet 500 mg PO Q6H PRN Pain 10/06/22 04/30/23 History (Acetaminophen Extra Strength) buspirone 7.5 mg tablet 7.5 mg PO DAILY 10/06/22 04/30/23 History cholecalciferol (vitamin D3) 125 125 mcg PO DAILY 10/06/22 04/30/23 History mcg (5,000 unit) tablet (Vitamin D3) cyanocobalamin (vitamin B-12) 500 500 mcg PO DAILY 10/06/22 04/30/23 History mcg tablet (Vitamin B-12) duloxetine 60 mg capsule,delayed 60 mg PO DAILY 10/06/22 04/30/23 History release furosemide 40 mg tablet (Lasix) 40 mg PO BID 10/06/22 04/30/23 History gabapentin 300 mg capsule 300 mg PO TID 10/06/22 04/30/23 History guaifenesin 600 mg tablet, 600 mg PO BID 10/06/22 04/30/23 History extended release 12 hr (Mucinex) ibuprofen 600 mg tablet 600 mg PO Q6H PRN Pain 10/06/22 04/30/23 History magnesium hydroxide 400 mg/5 mL 30 ml PO DAILY PRN Constipation 10/06/22 04/30/23 History oral suspension (Milk of Magnesia) melatonin 3 mg tablet 6 mg PO HS PRN Insomnia 10/06/22 04/30/23 History polyethylene glycol 3350 17 gram 17 g PO DAILY 10/06/22 04/30/23 History oral powder packet (Gavilax) potassium chloride 20 mEq 20 meq PO DAILY 10/06/22 04/30/23 History tablet,extended release pregabalin 75 mg capsule (Lyrica) 75 mg PO BID 10/06/22 04/30/23 History saliva stimulant comb. no.6 (Oral 1 yoel PO PRN PRN Rash 10/06/22 04/30/23 History Relief Lozenges) sennosides 8.6 mg-docusate sodium 1 tab-cap PO BID 10/06/22 04/30/23 History 50 mg tablet tramadol 50 mg tablet 50 mg PO TID 10/06/22 04/30/23 History undecylenic acid-zinc undecylenate 1 applic topical TID PRN for 10/06/22 04/30/23 History 5 %-20 % topical cream fungal rash diltiazem HCl 120 mg capsule,24 120 mg PO QAM #30 caps 10/13/22 04/30/23 Rx hr,extended release metoprolol succinate 25 mg 25 mg PO QAM #30 tabs 10/13/22 04/30/23 Rx tablet,extended release 24 hr (Toprol XL) pantoprazole 40 mg tablet,delayed 40 mg PO QAM #30 tabs 10/13/22 04/30/23 Rx release Allergies Allergy/AdvReac Type Severity Reaction Status Date / Time No Known Allergies Allergy Verified 10/06/22 16:39 Vital Signs Vital Signs - 24 hr 04/30/23 03:49 04/30/23 03:57 04/30/23 04:00 Temperature 97.7 F Pulse Rate 70 72 Respiratory Rate 18 18 Blood Pressure 109/59 L 148/72 H Pulse Oximetry 96 93 100 Oxygen Delivery Room Air Room Air 04/30/23 06:06 04/30/23 06:18 04/30/23 06:3
--- NOTE | 2023-04-30 12:09 | PCCCNOTE ---
On 04/30/23, the student, [ Elo Ba], provided care and completed [facility] documentation on this patient. I have reviewed the student's documentation and agree with the findings.
[2023-04-30] MEDS: PERFLUTREN LIPID MICROSPHERES 1.5 ML VIAL DILUTED TO 10 ML TOTAL VOLUME IV PUSH (12:10)
[2023-04-30] MEDS: ACETAMINOPHEN 500 MG TABLET PO (13:00)
[2023-04-30 18:03] LABS: Appearance Urine Clear (Clear); Bacteria Urine 4+ /hpf; Bilirubin Urine Negative (Negative); Blood Urine Negative (Negative); Color Urine Yellow (Yellow); Glucose Urine UA Negative (Negative); Ketones Urine Negative (Negative); Leukocyte Esterase Ur 2+ LEU/UL (Negative); Nitrate Urine Positive (Negative); Non Pathogenic Casts 0-2; Protein Urine Negative (Negative); RBC Urine 0-2 /hpf (0-2); Specific Grav Ur 1.009 (1.001-1.035); Squamous Epithelial Cell Urine None seen /hpf (Few); Urobilinogen Urine 0.2 mg/dL (<2.0); pH Urine 6.5 (5.0-9.0)
[2023-04-30 18:05] LABS: Add Urine Microscopic? YES
[2023-04-30] MEDS: DICLOFENAC SODIUM 1% 100 GM GEL (*BKC) 1 APPLIC TOPICAL (20:46)
[2023-05-01] VITALS (7 sets, daily range): BP systolic 118–133; BP diastolic 52–82; PULSE 66–78; RESP 16–18; TEMP 36.1–36.6; O2SAT 92–95
[2023-05-01] MEDS: DICLOFENAC SODIUM 1% 100 GM GEL (*BKC) 1 APPLIC TOPICAL (09:55)
[2023-05-01] MEDS: dilTIAZem HCL CD 120 MG CAP.24HR PO (09:55)
[2023-05-01] MEDS: PANTOPRAZOLE 40 MG TABLET PO (09:55)
[2023-05-01] MEDS: guaiFENesin 12 HR 600 MG TABCR PO ×2 (09:55→17:37)
[2023-05-01] MEDS: FLUTICASONE PROPIONATE 0.05% NA SPR 16 GM BTL (*BKC) 1 SPRAY NASAL (09:55)
[2023-05-01] MEDS: GABAPENTIN 300 MG CAPSULE PO ×3 (09:55→17:37)
[2023-05-01] MEDS: busPIRone HCL 2.5 MG TABLET 7.5 MG PO (09:56)
[2023-05-01] MEDS: CHOLECALCIFEROL 1,000 UNITS TABLET 5000 UNITS PO (09:56)
[2023-05-01] MEDS: SENNA/DOCUSATE SODIUM TABLET 1 TAB PO ×2 (09:56→17:37)
[2023-05-01] MEDS: DULoxetine HCL 60 MG CAPSULE.DR PO (09:56)
[2023-05-01] MEDS: FUROSEMIDE INJ 40 MG/4 ML VIAL IV PUSH (09:56)
[2023-05-01] MEDS: POTASSIUM CHLORIDE 20 MEQ ER TABLET PO (09:56)
[2023-05-01] MEDS: METOPROLOL SUCCINATE EXT REL 25 MG TABCR PO (09:57)
[2023-05-01] MEDS: polyethylene glycoL 3350 17 GM POWD.PACK PO (10:04)
[2023-05-01] MEDS: ACETAMINOPHEN 500 MG TABLET PO (10:04)
[2023-05-01] MEDS: PREGABALIN (*CRX) 75 MG CAPSULE PO ×2 (10:05→17:39)
[2023-05-01] MEDS: traMADol HCL (*CRX) 50 MG TABLET PO ×3 (10:05→17:39)
[2023-05-01] MEDS: CYANOCOBALAMIN 500 MCG TABLET PO (10:32)
--- NOTE | 2023-05-01 10:57 | PM.DS ---
DS: Admitting Diagnosis Discharge Date May 01, 2023 Admitting Diagnosis Shortness of breath. DS: Discharge Diagnosis Discharge Diagnosis (1) Edema, peripheral: Code(s): R60.9 - Edema, unspecified Status: Acute Assessment and Plan: IV for Lasix (2) Dyspnea: Code(s): R06.00 - Dyspnea, unspecified Status: Acute Assessment and Plan: IV Lasix. Monitor shortness of breath. Chest x-ray noted. Echo pending DS: Summary Hospital Course Hospital Course: Patient was admitted for shortness of breath. Workup was negative. She does not have any underlying CHF. Patient did well full bit of diuresis and also treatment for UTI. She will be discharged on antibiotics. Think most for shortness of breaths likely related to her body habitus. Time Spent with Patient Time attestation: Total time spent providing and/or coordinating discharge services: Exam Narrative: General: alert and oriented Psych: appropriate mood nad affect Eyes: PERRLA Neck: Trachea midline, no new lesions Skin: no changes Lungs: CTA Cardiac: Normal S1,S2, no MGR ABD: soft, nd, nt, nbs Ext: no new lesions, no cce Vasc: Pulses intact DS: Data Data Completed and Pending Labs on day of discharge: Labs from last 24 hours 04/30/23 17:50 Urine Color Yellow Urine Appearance Clear Urine pH 6.5 Ur Specific [place] 1.009 Urine Protein Negative Urine Glucose (UA) Negative Urine Ketones Negative Ur Blood (Man) Negative Urine Nitrate Positive H Urine Bilirubin Negative Urine Urobilinogen 0.2 Leukocyte Esterase Rfl 2+ H Urine RBC 0-2 Urine WBC 11-20 H Ur Squamous Epith Cells None seen Urine Bacteria 4+ H Urine Casts 0-2 Discharge Plan Discharge Attending physician on discharge: Igor Posada Discharging Clinician: Igor Posada Patient Disposition: Home, Self-Care Activity: as tolerated Diet: as tolerated Patient Instructions: Antibiotic Form Stand Alone Forms: General Discharge Information Follow-up/Referrals: Tobi Sebastian MD [Primary Care Provider] - Discharge Medications: New cefdinir 300 mg capsule 300 mg PO Q12H Qty: 10 0RF Continued furosemide [Lasix] 40 mg Tablet 40 mg PO BID polyethylene glycol 3350 [Gavilax] 17 gram Powder In Packet 17 g PO DAILY sennosides-docusate sodium 8.6-50 mg Tablet 1 tab-cap PO BID melatonin 3 mg Tablet 6 mg PO HS PRN (Reason: Insomnia) tramadol 50 mg Tablet 50 mg PO TID acetaminophen [Acetaminophen Extra Strength] 500 mg Tablet 500 mg PO Q6H PRN (Reason: Pain) undecylenic ac-zinc undecylena 5-20 % Cream 1 applic TOPICAL TID PRN (Reason: for fungal rash) magnesium hydroxide [Milk of Magnesia] 400 mg/5 mL Suspension 30 ml PO DAILY PRN (Reason: Constipation) cyanocobalamin (vitamin B-12) [Vitamin B-12] 500 mcg Tablet 500 mcg PO DAILY gabapentin 300 mg Capsule 300 mg PO TID buspirone 7.5 mg Tablet 7.5 mg PO DAILY ibuprofen 600 mg Tablet 600 mg PO Q6H PRN (Reason: Pain) duloxetine 60 mg Capsule,Delayed Release(Dr/Ec) 60 mg PO DAILY pregabalin [Lyrica] 75 mg Capsule 75 mg PO BID cholecalciferol (vitamin D3) [Vitamin D3] 125 mcg (5,000 unit) Tablet 125 mcg PO DAILY guaifenesin [Mucinex] 600 mg Tablet Extended Release 12hr 600 mg PO BID potassium chloride 20 mEq Tablet Extended Release 20 meq PO DAILY Oral Relief Lozenges Lozenge 1 yoel PO PRN PRN (Reason: Dry Mouth) diltiazem HCl 120 mg Capsule,Extended Release 24 Hr 120 mg PO QAM Qty: 30 0RF pantoprazole 40 mg Tablet,Delayed Release (Dr/Ec) 40 mg PO QAM Qty: 30 0RF metoprolol succinate [Toprol XL] 25 mg Tablet Extended Release 24 Hr 25 mg PO QAM Qty: 30 0RF fluticasone propionate 50 mcg/actuation spray,suspension 1 spray INTRANASAL DAILY diclofenac sodium 1 % gel 1 ea TOPICAL Q12H Date o
[2023-05-01] MEDS: TOLNAFTATE 1% POWDER 45 GM BTL 1 APPLIC TOPICAL (12:27)
[2023-05-01 13:15] LABS: SARS-CoV-2 RNA PCR Negative (Negative)
== END 2023-05-01 18:30 | disposition home or self-care (01) ==
LOC: ANHED 05:26 → ANH3MEDSUR 05-01 10:57
PROVIDERS: Admitting Provider Chiropractor; Emergency Provider Emergency Medicine; PCP Family Medicine; Visit Provider Chiropractor
DX: R60.0 Localized edema (principal); R06.00 Dyspnea, unspecified; F32.A Depression, unspecified; Z20.822 Contact with and (suspected) exposure to COVID-19; I48.92 Unspecified atrial flutter; I51.89 Other ill-defined heart diseases; Z87.820 Personal history of traumatic brain injury; Z79.1 Long term (current) use of non-steroidal anti-inflammatories (NSAID); Z79.891 Long term (current) use of opiate analgesic; Z79.899 Other long term (current) drug therapy
CPT/HCPCS: 36415; 71045; 80053; 81001; 83605; 83735; 83880; 84484; 85025; 85610; 85730; 87077; 87086; 87186; 87635; 93005; 93970; 96374; 96375; 96376; 99285; A9270; C8929; G0378; J1940; Q9957

== ENCOUNTER 2024-05-31 07:45 | Inpatient (IN) | payer MEDICARE, MEDICAID, SELFPAY ==
[2024-05-31] VITALS (15 sets, daily range): BP systolic 111–144; BP diastolic 54–77; PULSE 56–81; RESP 12–22; TEMP 36.3–36.4; O2SAT 92–100; BMI 45.1
--- NOTE | ~2024-05-31 | XR_ITS ---
Portable chest x-ray Comparison: 05/31/2024 Clinical History: Pneumonia Findings: There is discoid right basilar atelectasis or scarring. Left lung essentially clear. Card iomediastinal silhouette is stable. Bones and soft tissues are unremarkable. Impression: Right basilar discoid atelectasis or scarring, otherwise essentially clear lungs. Reviewed, dictated and finalized at location . Impression: Right basilar discoid atelectasis or scarring, otherwise essentially clear lung s.
--- NOTE | ~2024-05-31 | US_ITS ---
EXAMINATION: US venous doppler [facility] DATE: 06/08/2024 09:16 INDICATION: Lower limb pain, swelling and erythema TECHNIQUE: Grayscale ultrasound images without and with compression and Doppler ultrasound images of the bilateral lower extremity veins were obtained. COMPARISON: None. FINDINGS: The visualized portions of right common femoral vein, profunda (deep) femoral vein, femoral vein, pop liteal vein, posterior tibial veins, peroneal veins, gastrocnemius vein and greater saphenous vein at the proximal to mid thigh are patent. The visualized portions of left common femoral vein, profunda femoral vein, femoral vein, popliteal v ein, posterior tibial veins, peroneal veins, gastrocnemius vein and greater saphenous vein at the pro ximal to mid thigh are patent. IMPRESSION: 1. No deep venous thrombosis in either lower limb. Reviewed, dictated and finalized at location A.
--- NOTE | ~2024-05-31 | XR_ITS ---
EXAMINATION: XR chest 1V portable DATE: 05/31/2024 08:37 INDICATION: Soreness of breath TECHNIQUE: frontal view of the chest was obtained. COMPARISON: Chest radiograph dated 04/30/2023 FINDINGS: Mildly decreased lung volumes. There are streaky opacities at the bilateral lower lung zones and favo r atelectasis over pneumonia. Calcified nodule name left upper lung zone along with calcified left hi lar and mediastinal lymph nodes consistent with old granulomatous disease. No pleural effusion or pne umothorax. Heart size is normal. Large sclerotic lesion at the left humeral head unchanged since 2022 most likely bone island. IMPRESSION: 1. Mildly decreased lung bulge with streaky opacities in the bilateral lower lung zones and favor ate lectasis over pneumonia. Reviewed, dictated and finalized at location A. IMPRESSION: 1. Mildly decreased lung bulge with streaky opacities in the bilateral lower david ng zones and favor atelectasis over pneumonia.
--- NOTE | ~2024-05-31 | CT_ITS ---
EXAMINATION: CT soft tissue neck chest w DATE: 06/01/2024 18:34 INDICATION: Neck pain and swelling. TECHNIQUE: Computed tomography (CT) of the neck and chest was performed with 75 mL Omnipaque-350 intr avenous contrast. Automated exposure control and iterative reconstruction technique were employed. Th e dose-length product was 1231.40 mGy-cm. COMPARISON: Chest CT 10/06/2022, head CT 10/07/2022 FINDINGS: CT NECK: There is chronic volume loss of the brain, right worse than left. There are likely changes o f ocular lens replacement surgeries. The mastoid air cells are normal. The paranasal sinuses are lucio r. There are no pathologically enlarged lymph nodes. There is plaque in the proximal internal carotid arteries with less than 50% stenosis relative to normal distal artery lumen diameters. There is sri re cervical spondylosis. CT CHEST: The lung volumes are small. There is mild atelectasis bilaterally. Calcified pulmonary nodu les and calcified hilar lymph nodes are consistent with old granulomatous disease. No pleural effusio n. The heart size is normal. There are coronary artery calcifications. No pericardial effusion. There is no pulmonary embolus. The central pulmonary arteries are enlarged, consistent with pulmonary giulia rial hypertension. There is a benign bone island in proximal left humerus. There is mild thoracic spo ndylosis. There is mild chronic height loss of T10 vertebral body. IMPRESSION: 1. No specific etiology for the patient's symptoms. Reviewed, dictated and finalized at location A.
--- NOTE | 2024-05-31 07:52 | ECG_ITS ---
Test Date: 2024-05-31 07:53:39 Measurements Intervals [place] Rate: 62 P: 37 AL: 109 QRS: -23 QRSD: 84 T: 111 QT: 411 QTc: 419 Interpretive Statements SINUS RHYTHM WITH SHORT AL INTERVAL BORDERLINE LEFT AXIS DEVIATION [QRS AXIS < -20] NONSPECIFIC T-WAVE ABNORMALITY ABNORMAL ECG No previous ECG available for comparison Electronically Signed On 06-01-2024 13:03:24 CDT by Igor Monahan M.D.
[2024-05-31] MEDS: ALBUTEROL SULFATE NEB 2.5 MG/3 ML INH INHALATION (08:11)
--- NOTE | 2024-05-31 08:11 | ED.GENADULT ---
HPI - General Adult General Chief complaint: Shortness of Breath/Dyspnea Stated complaint: SOB History of Present Illness HPI narrative: 73-year-old female present to the emergency department for evaluation for increased cough congestion and shortness of breath. Patient is normally not on oxygen but is on 3 L of oxygen by nasal cannula to maintain a pulse ox of 96%. [facility] states that the patient has had increased cough congestion and wheezing and rhonchi today. Patient is normally on 2 L of oxygen by nasal cannula Related Data Home Medications Medication Instructions Recorded Confirmed acetaminophen 500 mg tablet 1,000 mg PO Q6H PRN Pain 10/06/22 05/31/24 (Acetaminophen Extra Strength) cyanocobalamin (vitamin B-12) 500 500 mcg PO DAILY 10/06/22 05/31/24 mcg tablet (Vitamin B-12) duloxetine 60 mg capsule,delayed 60 mg PO Q12H 10/06/22 05/31/24 release furosemide 40 mg tablet (Lasix) 40 mg PO DAILY 10/06/22 05/31/24 guaifenesin 600 mg tablet, 600 mg PO BID PRN Congestion 10/06/22 05/31/24 extended release 12 hr (Mucinex) ibuprofen 600 mg tablet 600 mg PO Q6H PRN Pain 10/06/22 05/31/24 magnesium hydroxide 400 mg/5 mL 30 ml PO DAILY PRN Constipation 10/06/22 05/31/24 oral suspension (Milk of Magnesia) polyethylene glycol 3350 17 gram 17 g PO DAILY 10/06/22 05/31/24 oral powder packet (Gavilax) potassium chloride 20 mEq 20 meq PO DAILY 10/06/22 05/31/24 tablet,extended release pregabalin 75 mg capsule (Lyrica) 75 mg PO Q12H 10/06/22 05/31/24 sennosides 8.6 mg-docusate sodium 1 tab-cap PO BID 10/06/22 05/31/24 50 mg tablet tramadol 50 mg tablet 50 mg PO TID 10/06/22 05/31/24 diclofenac sodium 1 % topical gel 1 ea topical Q12H PRN Pain 04/30/23 05/31/24 cetirizine 10 mg tablet 10 mg PO HS 05/31/24 05/31/24 cholecalciferol (vitamin D3) 125 125 mcg PO DAILY 05/31/24 05/31/24 mcg (5,000 unit) capsule clonidine HCl 0.1 mg tablet 0.1 mg PO Q12H 05/31/24 05/31/24 gabapentin 600 mg tablet 600 mg PO Q12H 05/31/24 05/31/24 ipratropium 0.5 mg-albuterol 3 mg 3 ml inhalation QID 05/31/24 05/31/24 (2.5 mg base)/3 mL nebulization soln mirtazapine 7.5 mg tablet 7.5 mg PO HS 05/31/24 05/31/24 nystatin 100,000 unit/gram topical 1 applic topical PRN PRN Rash 05/31/24 05/31/24 powder nystatin 100,000 unit/mL oral 5 ml PO QID 05/31/24 05/31/24 suspension prednisone 20 mg tablet 20 mg PO DAILY 05/31/24 05/31/24 ramelteon 8 mg tablet 8 mg PO HS 05/31/24 05/31/24 Allergies Allergy/AdvReac Type Severity Reaction Status Date / Time No Known Allergies Allergy Verified 05/31/24 10:29 Review of Systems Review of Systems: All systems reviewed & are unremarkable except as noted in HPI and below PMFSH Past Medical History Medical History (Updated 05/31/24 @ 13:07 by Nancy Leon APRN) Anxiety and depression Arthritis Asthma Atrial flutter by electrocardiogram Bronchitis Chronic constipation Dependence on wheelchair Foot-drop GERD (gastroesophageal reflux disease) History of traumatic brain injury Supraventricular tachycardia Surgical History Surgical History History of appendectomy Social History Social History Smoking status: Former smoker Tobacco type: cigarettes Second hand tobacco smoke exposure: No Alcohol intake: never Substance use: never Substance use type: does not use Lack of Transportation: No Lack of Food: Never True Current Housing: I Have Housing Concerned About Future Housing: No Difficulty Paying Gas/Electric Bills: No Difficulty Paying for Meds: No Currently Unemployed: No Education: Grade School Difficulty w/ Childcare or Family Care: No Spiritual care concerns: No Exam Narrative: APPEARANCE: Well appearing, no pain, no distress, well-nourished. HEAD: normocephalic, atraumatic. EYES: PERRLA/EOMI, conjunctivae clear. NOS
[2024-05-31 08:36] LABS: Alanine Aminotransferase 19 U/L (6-35); Albumin Level 3.8 g/dL (3.5-5.1); Alkaline Phosphatase 62 U/L (38-126); Aspartate Amino Transferase 19 U/L (14-36); Bilirubin,Total 0.5 mg/dL (0.2-1.3); Blood Urea Nitrogen 15 mg/dL (7-17); Calcium 8.9 mg/dL (8.4-10.2); Carbon Dioxide > 40 mmol/L (22-30); Chloride 93 mmol/L (98-107); Estimated CRCL calculation 66 ml/min; Estimated Glomerular Filt Rate > 60; Glucose 142 mg/dL (65-110); Potassium 3.5 mmol/L (3.4-5.0); Sodium 139 mmol/L (137-145)
[2024-05-31 08:41] LABS: Basophils Absolute Auto 0.1 K/mm3 (0.0-0.1); Basophils Percent Auto 0.5 % (0.2-1.2); Eosinophils Absolute Auto 0.1 K/mm3 (0-0.3); Hematocrit 50.5 % (37.0-47.0); Hemoglobin 15.9 g/dL (12.0-15.0); Immature Granulocyte Absolute 0.12 K/mm3 (0.00-0.031); Immature Granulocyte Percent A 1.3 % (0-0.5); Lymphocytes Absolute Auto 3.68 K/mm3 (0.9-3.2); Lymphocytes Percent Auto 39.8 % (18.3-44.2); Mean Corpuscular HGB Conc 31.5 g/dl (32-36); Mean Corpuscular Volume 98.4 fl (80-100); Mean Platelet Volume 10.1 fl (7.4-10.4); Monocytes Absolute Auto 0.4 K/mm3 (0.1-0.6); Monocytes Percent Auto 4.4 % (2.6-8.5); Neutrophils Absolute Auto 4.9 K/mm3 (1.3-6.7); Platelet Count Result 219 k/mm3 (150-375); Red Blood Count 5.13 M/mm3 (4.2-5.4); White Blood Count 9.2 K/mm3 (4.5-10.0)
[2024-05-31 08:44] LABS: NT Pro B Type Natriuretic Pept 137 pg/mL (19.9-100)
[2024-05-31 08:59] LABS: Influenza A QL RT-PCR Negative (Negative); Influenza B QL RT-PCR Negative (Negative); RSV RNA, RT-PCR Negative (Negative); SARS-CoV-2 RNA PCR Negative (Negative)
[2024-05-31] MEDS: FUROSEMIDE INJ 40 MG/4 ML VIAL IV PUSH (10:12)
[2024-05-31] MEDS: AZITHROMYCIN 500 MG/NS 250 ML 500 MG/250 ML BAG 250 MG IVPB (10:52)
--- NOTE | 2024-05-31 11:20 | PC.NURSE ---
This patient, Shiela Calabrees, was admitted to [facility] Surg Room 331-02. Patient/family oriented to hospital policies and general routines including ID bracelet, bed and alarms, visiting hours, pain management, procedures, bathroom and other care routines, personal items, smoking policy, room service/diet, and visiting hours. Information on how to activate the Rapid Response Team has been discussed. Patient/Family are encouraged to report perceived risks to care and to ask questions if they do not understand what they are told or what they should do.
--- NOTE | 2024-05-31 12:56 | PM.IMHP ---
H&P: HPI History of Present Illness Date/Time: 05/31/24 12:56 Chief Complaint: Shortness of Breath Narrative: 73 y/o F presents here with shortness of breath with PMH of chronic bronchitis, asthma, CHF, atrial flutter, anxiety/depression, and TBI. The patient presents here from [facility] via EMS for further evaluation of shortness of breath. Patient reports onset of shortness of breath approximately 2 days ago. Per ED documentation shortness of breath is accompanied by cough or congestion. She reports the cough has been scantly productive. Patient is poor historian and responding I don't know to majority of questions. per previous ED note on 04/27/2023, patient was A&O x1 at that time. Currently A&O x1. Per chart review, EMS reported to them that the patient had bilateral wheezes and crackles upon arrival But remained 98% on her chronic 2L baseline oxygen requirement, given DuoNeb in route. Initial VS at presentation: 97.6? F, HR 64, RR 12, 135/77, and 96% on 3L NC. ED workup showed: no leukocytosis, hemoglobin 15.9, CO2 >40, creatinine 0.8 and normal GFR, BNP 137, initial glucose 142, and viral PCR negative. CXR showed mildly decreased lung bulge with streaky opacities in the bilateral lower lung zones and favor atelectasis over pneumonia. Review of Systems Review of Systems: ROS unobtainable: Yes unobtainable due to mental status ( very limited) [facility] Past Medical History Medical History (Updated 05/31/24 @ 14:51 by Nancy Leon APRN) Anxiety and depression Arthritis Asthma Atrial flutter by electrocardiogram Bronchitis Chronic constipation Dependence on wheelchair Foot-drop GERD (gastroesophageal reflux disease) History of traumatic brain injury Supraventricular tachycardia Surgical History Surgical History History of appendectomy Social History Social History Smoking status: Former smoker Tobacco type: cigarettes Second hand tobacco smoke exposure: No Alcohol intake: never Substance use: never Substance use type: does not use Lack of Transportation: No Lack of Food: Never True Current Housing: I Have Housing Concerned About Future Housing: No Difficulty Paying Gas/Electric Bills: No Difficulty Paying for Meds: No Currently Unemployed: No Education: Grade School Difficulty w/ Childcare or Family Care: No Spiritual care concerns: No Meds Home Medications and Allergies Home Medications Medication Instructions Recorded Confirmed Type acetaminophen 500 mg tablet 1,000 mg PO Q6H PRN Pain 10/06/22 05/31/24 History (Acetaminophen Extra Strength) cyanocobalamin (vitamin B-12) 500 500 mcg PO DAILY 10/06/22 05/31/24 History mcg tablet (Vitamin B-12) duloxetine 60 mg capsule,delayed 60 mg PO Q12H 10/06/22 05/31/24 History release furosemide 40 mg tablet (Lasix) 40 mg PO DAILY 10/06/22 05/31/24 History guaifenesin 600 mg tablet, 600 mg PO BID PRN Congestion 10/06/22 05/31/24 History extended release 12 hr (Mucinex) ibuprofen 600 mg tablet 600 mg PO Q6H PRN Pain 10/06/22 05/31/24 History magnesium hydroxide 400 mg/5 mL 30 ml PO DAILY PRN Constipation 10/06/22 05/31/24 History oral suspension (Milk of Magnesia) polyethylene glycol 3350 17 gram 17 g PO DAILY 10/06/22 05/31/24 History oral powder packet (Gavilax) potassium chloride 20 mEq 20 meq PO DAILY 10/06/22 05/31/24 History tablet,extended release pregabalin 75 mg capsule (Lyrica) 75 mg PO Q12H 10/06/22 05/31/24 History sennosides 8.6 mg-docusate sodium 1 tab-cap PO BID 10/06/22 05/31/24 History 50 mg tablet tramadol 50 mg tablet 50 mg PO TID 10/06/22 05/31/24 History diltiazem HCl 120 mg capsule,24 120 mg PO QAM #30 caps 10/13/22 05/31/24 Rx hr,extended release metoprolol succinate 25 mg 25 mg PO QAM #30 tabs 10/13/22 05/31/24 Rx tablet,extended release 24 hr
[2024-05-31] MEDS: ALBUTEROL SULFATE NEB 2.5 MG/3 ML INH NEBULIZE (14:02)
[2024-05-31] MEDS: SENNA/DOCUSATE SODIUM TABLET 1 TAB PO (17:24)
[2024-05-31] MEDS: traMADol HCL (*CRX) 50 MG TABLET PO (17:24)
[2024-05-31] MEDS: NYSTATIN 100,000 UNITS/ML SUSP 5 ML ORAL.SUSP PO ×2 (17:24→20:37)
[2024-05-31 18:13] LABS: MRSA (PCR) NOT DETECTED (NOT DETECTE)
[2024-05-31] MEDS: MIRTAZAPINE 7.5 MG TABLET PO (20:33)
[2024-05-31] MEDS: PREGABALIN (*CRX) 75 MG CAPSULE PO (20:33)
[2024-05-31] MEDS: cloNIDine HCL 0.1 MG TABLET PO (20:33)
[2024-05-31] MEDS: DULoxetine HCL 60 MG CAPSULE.DR PO (20:33)
[2024-05-31] MEDS: GABAPENTIN 300 MG CAPSULE 600 MG PO (20:33)
[2024-05-31] MEDS: LORATADINE 10 MG TABLET PO (20:33)
[2024-05-31] MEDS: ACETAMINOPHEN 500 MG TABLET 1000 MG PO (20:49)
[2024-06-01] VITALS (18 sets, daily range): BP systolic 121–182; BP diastolic 59–98; PULSE 72–101; RESP 16–22; TEMP 36.4–36.8; O2SAT 92–97
[2024-06-01] MEDS: ACETAMINOPHEN 500 MG TABLET 1000 MG PO (06:37)
[2024-06-01] MEDS: IPRATROPIUM 0.5 MG/ALBUTEROL SULFATE 2.5 MG AMPUL.NEB 3 ML NEBULIZE ×4 (08:09→20:17)
[2024-06-01] MEDS: traMADol HCL (*CRX) 50 MG TABLET PO ×3 (08:34→16:58)
[2024-06-01] MEDS: GABAPENTIN 300 MG CAPSULE 600 MG PO ×2 (08:34→20:37)
[2024-06-01] MEDS: CYANOCOBALAMIN 500 MCG TABLET PO (08:34)
[2024-06-01] MEDS: PREGABALIN (*CRX) 75 MG CAPSULE PO ×2 (08:34→20:37)
[2024-06-01] MEDS: dilTIAZem HCL CD 120 MG CAP.24HR PO (08:34)
[2024-06-01] MEDS: FUROSEMIDE 40 MG TABLET PO (08:34)
[2024-06-01] MEDS: CHOLECALCIFEROL 5,000 UNITS TABLET 5000 UNITS BY MOUTH (08:34)
[2024-06-01] MEDS: predniSONE 20 MG TABLET PO (08:34)
[2024-06-01] MEDS: METOPROLOL SUCCINATE EXT REL 25 MG TABCR PO (08:34)
[2024-06-01] MEDS: SENNA/DOCUSATE SODIUM TABLET 1 TAB PO ×2 (08:34→16:58)
[2024-06-01] MEDS: DULoxetine HCL 60 MG CAPSULE.DR PO ×2 (08:35→20:37)
[2024-06-01] MEDS: polyethylene glycoL 3350 17 GM POWD.PACK PO (08:35)
[2024-06-01] MEDS: cloNIDine HCL 0.1 MG TABLET PO ×2 (08:35→20:37)
[2024-06-01] MEDS: POTASSIUM CHLORIDE 20 MEQ ER TABLET PO (08:35)
[2024-06-01] MEDS: PANTOPRAZOLE 40 MG TABLET PO (08:35)
[2024-06-01] MEDS: AZITHROMYCIN 500 MG/NS 250 ML 500 MG/250 ML BAG 250 MG IVPB (08:35)
[2024-06-01] MEDS: NYSTATIN 100,000 UNITS/ML SUSP 5 ML ORAL.SUSP PO ×4 (08:36→20:37)
--- NOTE | 2024-06-01 08:46 | PM.IMPN ---
Progress Note: A&P Assessment and Plan (1) Community acquired pneumonia: Qualifiers: Laterality: unspecified laterality Qualified Code(s): J18.9 - Pneumonia, unspecified organism Code(s): J18.9 - Pneumonia, unspecified organism Status: Acute Assessment and Plan: - did not meet sirs criteria, blood cultures obtained in the ED. follow. - CXR: Mildly decreased lung bulge with streaky opacities in the bilateral lower lung zones and favor atelectasis over pneumonia. - risk factors: [place] resident - complicating factors: chronic bronchitis, asthma - started on CAP tx: ceftriaxone & azithromycin on 05/31 - MRSA PCR added - Viral PCR negative - sputum culture if obtainable - has baseline supplemental O2 requirement 2L, currently on 3L - continue home prednisone Plan Diet: heart healthy GI Prophylaxis: not currently indicated DVT Prophylaxis: SCDs Lines: peripheral Code Status: full code Time Spent With Patient Time: 35 minutes Subjective Date/time seen: 06/01/24 08:46 Interval history: Patient reports pain to neck and throat Patient facility reported to RN that frequent concern for aspiration at facility Lungs audibly coarse and wheezing, Significant pedal edema Schedule nebs, sputum culture, increase prednisone CT neck and chest Review of Systems Review of Systems: ROS unobtainable: Yes unobtainable due to mental status ( very limited) Exam Narrative: General - Awake and alert. Coarse upper airway Eyes - PERRLA, EOM intact ENT - No thrush, No erythema, TTP submandibular Neck - No noticeable or palpable swelling Lymph Nodes - No lymphadenopathy Cardiovascular - RRR no m/r/g, no JVD Lungs: Coarse and wheezing. Skin - Skin warm and dry, no wounds or rashes Abdomen - Normal bowel sounds, abdomen soft and nontender Extremities - Bilateral LE edema, no cyanosis or clubbing Musculoskeletal - 5/5 strength, normal range of motion, no swollen or erythematous joints. Neurological ? Alert and oriented x 3, CN 2-12 grossly intact. Psych: Normal mood and affect Const: General: comfortable and no acute distress Other: , female, obese body habitus, chronically ill-appearing HENMT: Face/Nose/Sinus: Normal nares present Mouth: Yes dry mucous membranes ( tacky) Eyes: General: appearance normal, both eyes and all related structures Sclera: sclerae normal Pupils: Equal, round and reactive pupils present EOM: EOMs intact bilaterally Resp: Other: coarse lung sounds throughout, intermittent expiratory wheeze. Cardio: Rate: regular rate Rhythm: regular rhythm Other: occasional ectopy, +/- murmur (difficult to discern due to adventitious lung sounds) GI: Other: abdomen rounded, nontender, soft. Skin: General skin exam: normal color and no rashes or lesions noted Wounds: no wounds Neuro: Cranial nerves: Yes Equal, round and reactive pupils present Speech: normal speech Sensory Exam: normal sensation Other: A&O x1, generalized weakness throughout Extrem: Other: 1+ pitting edema to bilateral ankles/distal calves, symmetric. Psych: Other: blunted affect, poor insight and judgment. Objective Data Vital Signs Vital Signs: Vital Signs - 24 hr 05/31/24 10:14 05/31/24 10:17 05/31/24 10:49 Temperature Pulse Rate 65 64 66 Respiratory Rate 17 14 19 Blood Pressure 132/62 Pulse Oximetry 100 100 98 Oxygen Delivery Oxygen Flow Rate Fraction of Inspired Oxygen 05/31/24 11:02 05/31/24 12:04 05/31/24 12:00 Temperature Pulse Rate 65 63 Respiratory Rate 16 Blood Pressure Pulse Oximetry 100 99 Oxygen Delivery Nasal Cannula Oxygen Flow Rate 3 Fraction of Inspired Oxygen 05/31/24 14:02 05/31/24 14:02 05/31/24 14:10 Temperature Pulse Rate 56 L 68 Respiratory Rate 16 15 Blood Pressure Pulse Oximetry 92 Oxygen Delivery Nasal Cannula Oxygen Flow Rat
[2024-06-01] MEDS: IBUPROFEN 600 MG TABLET PO (10:34)
[2024-06-01] MEDS: predniSONE 20 MG TABLET 40 MG PO (11:59)
[2024-06-01 20:27] LABS: Influenza A QL RT-PCR Negative (Negative); Influenza B QL RT-PCR Negative (Negative); RSV RNA, RT-PCR Negative (Negative); SARS-CoV-2 RNA PCR Negative (Negative)
[2024-06-01] MEDS: MIRTAZAPINE 7.5 MG TABLET PO (20:37)
[2024-06-01] MEDS: LORATADINE 10 MG TABLET PO (20:37)
[2024-06-02] VITALS (17 sets, daily range): BP systolic 116–158; BP diastolic 73–81; PULSE 76–92; RESP 16–24; TEMP 36.2–37; O2SAT 94–97
[2024-06-02] MEDS: SODIUM CHLOR 3% 15 ML NEB (RESPIRATORY THERAPY) 6 ML INHALATION (05:07)
[2024-06-02 06:09] LABS: Alveolar/Arterial O2 Gradient 73.1 mmHg; Base Excess ABG 9.1 mEq/l (+/-2.0); Fractional Inspired Oxygen 28 %; HCO3 ABG 34.8 mEq/l (22.0-26.0); Oxygen Content ABG 18.7 %vol (16.0-22.0); Oxygen Saturation ABG 93.5 % (95.0-100.0); Oxyhemoglobin 93.5 % THb (90.0-100.0); PCO2 ABG 51.4 mmHg (35.0-45.0); PO2 ABG 65.9 mmHg (80.0-100.0); PO2 FiO2 Ratio Arterial Blood 2.35 %; Total Hemoglobin 14.2 g/dL (12.0-18.0); pH ABG 7.449 (7.350-7.450)
[2024-06-02 06:11] LABS: Device NASAL CANNULA; Modified Allen's Test Pass; Site Drawn LEFT RADIAL
--- NOTE | 2024-06-02 06:21 | PCRCNOTE ---
Pt. unable to produce a sputum sample.
[2024-06-02] MEDS: IPRATROPIUM 0.5 MG/ALBUTEROL SULFATE 2.5 MG AMPUL.NEB 3 ML NEBULIZE ×4 (07:45→20:30)
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
[2024-06-02] MEDS: AZITHROMYCIN 500 MG/NS 250 ML 500 MG/250 ML BAG 150 MG IVPB (08:30)
[2024-06-02] MEDS: polyethylene glycoL 3350 17 GM POWD.PACK PO (08:30)
[2024-06-02] MEDS: NYSTATIN 100,000 UNITS/ML SUSP 5 ML ORAL.SUSP PO ×4 (08:30→20:51)
[2024-06-02] MEDS: traMADol HCL (*CRX) 50 MG TABLET PO ×3 (08:31→16:32)
[2024-06-02] MEDS: PREGABALIN (*CRX) 75 MG CAPSULE PO ×2 (08:31→20:51)
[2024-06-02] MEDS: DULoxetine HCL 60 MG CAPSULE.DR PO ×2 (08:31→20:51)
[2024-06-02] MEDS: dilTIAZem HCL CD 120 MG CAP.24HR PO (08:31)
[2024-06-02] MEDS: SENNA/DOCUSATE SODIUM TABLET 1 TAB PO ×2 (08:31→16:32)
[2024-06-02] MEDS: CYANOCOBALAMIN 500 MCG TABLET PO (08:31)
[2024-06-02] MEDS: GABAPENTIN 300 MG CAPSULE 600 MG PO ×2 (08:31→20:51)
[2024-06-02] MEDS: predniSONE 20 MG TABLET 40 MG PO (08:31)
[2024-06-02] MEDS: cloNIDine HCL 0.1 MG TABLET PO ×2 (08:31→20:51)
[2024-06-02] MEDS: PANTOPRAZOLE 40 MG TABLET PO (08:32)
[2024-06-02] MEDS: METOPROLOL SUCCINATE EXT REL 25 MG TABCR PO (08:32)
[2024-06-02] MEDS: CHOLECALCIFEROL 5,000 UNITS TABLET 5000 UNITS BY MOUTH (08:32)
[2024-06-02] MEDS: POTASSIUM CHLORIDE 20 MEQ ER TABLET PO (08:32)
[2024-06-02] MEDS: ENOXAPARIN 40 MG/0.4 ML SYRINGE SUB-Q ×2 (08:33→20:51)
--- NOTE | 2024-06-02 11:26 | PCSTNOTE ---
Please refer to the Bedside Swallow Evaluation in the EMR. Please note, silent aspiration cannot be ruled out at bedside.
[2024-06-02] MEDS: LORATADINE 10 MG TABLET PO (20:51)
[2024-06-02] MEDS: MIRTAZAPINE 7.5 MG TABLET PO (20:51)
[2024-06-02] MEDS: guaiFENesin 12 HR 600 MG TABCR PO (20:51)
[2024-06-03] VITALS (21 sets, daily range): BP systolic 110–149; BP diastolic 78–82; PULSE 68–90; RESP 16–24; TEMP 36.6–36.9; O2SAT 93–98
[2024-06-03] MEDS: SODIUM CHLOR 3% 15 ML NEB (RESPIRATORY THERAPY) 6 ML INHALATION (04:52)
--- NOTE | 2024-06-03 05:07 | PCRCNOTE ---
No sputum obtained during sputum induction.
[2024-06-03 06:38] LABS: Basophils Percent Auto 0.3 % (0.2-1.2); Eosinophils Percent Auto 0.1 % (0-4.4); Hematocrit 45.8 % (37.0-47.0); Hemoglobin 14.2 g/dL (12.0-15.0); Immature Granulocyte Absolute 0.06 K/mm3 (0.00-0.031); Immature Granulocyte Percent A 0.5 % (0-0.5); Lymphocytes Absolute Auto 2.35 K/mm3 (0.9-3.2); Lymphocytes Percent Auto 21.3 % (18.3-44.2); Mean Corpuscular Hemoglobin 30.7 pg (26-34); Mean Corpuscular Volume 98.9 fl (80-100); Mean Platelet Volume 10.3 fl (7.4-10.4); Monocytes Absolute Auto 0.5 K/mm3 (0.1-0.6); Monocytes Percent Auto 4.3 % (2.6-8.5); Neutrophils Absolute Auto 8.1 K/mm3 (1.3-6.7); Neutrophils Percent Auto 73.5 % (45.5-73.1); Platelet Count Result 197 k/mm3 (150-375); Red Blood Count 4.63 M/mm3 (4.2-5.4); Red Cell Distribution Width 13.9 % (11.5-14.5)
[2024-06-03 07:13] LABS: Blood Urea Nitrogen 9 mg/dL (7-17); Calcium 9.4 mg/dL (8.4-10.2); Carbon Dioxide > 40 mmol/L (22-30); Chloride 96 mmol/L (98-107); Estimated CRCL calculation 86 ml/min; Estimated Glomerular Filt Rate > 60; Glucose 157 mg/dL (65-110); Magnesium 2.3 mg/dL (1.6-2.3); Phosphorus 3.5 mg/dL (2.5-4.5); Potassium 3.6 mmol/L (3.4-5.0); Sodium 141 mmol/L (137-145)
[2024-06-03] MEDS: IPRATROPIUM 0.5 MG/ALBUTEROL SULFATE 2.5 MG AMPUL.NEB 3 ML NEBULIZE ×4 (07:20→21:16)
[2024-06-03 07:27] LABS: Erythrocyte Sedimentation Rate 45 mm/hr (0-20)
[2024-06-03 07:45] LABS: CRP 1.5 mg/dL (<1.0)
[2024-06-03] MEDS: PREGABALIN (*CRX) 75 MG CAPSULE PO (09:33)
[2024-06-03] MEDS: METOPROLOL SUCCINATE EXT REL 25 MG TABCR PO (09:33)
[2024-06-03] MEDS: predniSONE 20 MG TABLET 40 MG PO (09:33)
[2024-06-03] MEDS: GABAPENTIN 300 MG CAPSULE 600 MG PO ×3 (09:33→21:06)
[2024-06-03] MEDS: PANTOPRAZOLE 40 MG TABLET PO (09:33)
[2024-06-03] MEDS: FUROSEMIDE 40 MG TABLET PO (09:33)
[2024-06-03] MEDS: traMADol HCL (*CRX) 50 MG TABLET PO (09:34)
[2024-06-03] MEDS: POTASSIUM CHLORIDE 20 MEQ ER TABLET PO (09:34)
[2024-06-03] MEDS: ENOXAPARIN 40 MG/0.4 ML SYRINGE SUB-Q (09:34)
[2024-06-03] MEDS: cloNIDine HCL 0.1 MG TABLET PO ×2 (09:34→21:06)
[2024-06-03] MEDS: CYANOCOBALAMIN 500 MCG TABLET PO (09:34)
[2024-06-03] MEDS: dilTIAZem HCL CD 120 MG CAP.24HR PO (09:34)
[2024-06-03] MEDS: DULoxetine HCL 60 MG CAPSULE.DR PO ×2 (09:34→21:07)
[2024-06-03] MEDS: SENNA/DOCUSATE SODIUM TABLET 1 TAB PO ×2 (09:34→18:20)
[2024-06-03] MEDS: CHOLECALCIFEROL 5,000 UNITS TABLET 5000 UNITS BY MOUTH (09:34)
[2024-06-03] MEDS: NYSTATIN 100,000 UNITS/ML SUSP 5 ML ORAL.SUSP PO ×4 (09:35→21:06)
[2024-06-03] MEDS: PHENOL/SOD PHENO SPRAY CHERRY (*BKC) 2 SPRAY MUCOUS MEM ×3 (09:36→18:21)
[2024-06-03] MEDS: polyethylene glycoL 3350 17 GM POWD.PACK PO (09:36)
[2024-06-03] MEDS: AZITHROMYCIN 500 MG/NS 250 ML 500 MG/250 ML BAG 250 MG IVPB (10:45)
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
[2024-06-03] MEDS: ACETAMINOPHEN 500 MG TABLET 1000 MG PO ×2 (14:42→21:06)
[2024-06-03] MEDS: FLUTICASONE PROPIONATE 0.05% NA SPR 16 GM BTL (*BKC) 2 SPRAY NASAL ×2 (14:43→21:07)
[2024-06-03] MEDS: LORATADINE 10 MG TABLET PO (21:07)
[2024-06-03] MEDS: guaiFENesin 12 HR 600 MG TABCR PO (21:07)
[2024-06-04] VITALS (20 sets, daily range): BP systolic 118–160; BP diastolic 65–71; PULSE 71–91; RESP 20–22; TEMP 36.3–36.6; O2SAT 94–98
[2024-06-04] MEDS: GABAPENTIN 300 MG CAPSULE 600 MG PO ×3 (06:05→20:35)
[2024-06-04] MEDS: ACETAMINOPHEN 500 MG TABLET 1000 MG PO ×3 (06:05→20:35)
[2024-06-04 06:24] LABS: Alveolar/Arterial O2 Gradient 84.3 mmHg; Base Excess ABG 10.4 mEq/l (+/-2.0); Fractional Inspired Oxygen 28 %; HCO3 ABG 36.6 mEq/l (22.0-26.0); Oxygen Content ABG 18.6 %vol (16.0-22.0); Oxyhemoglobin 88.4 % THb (90.0-100.0); PCO2 ABG 54.1 mmHg (35.0-45.0); PO2 ABG 51.5 mmHg (80.0-100.0); PO2 FiO2 Ratio Arterial Blood 1.84 %; pH ABG 7.448 (7.350-7.450)
[2024-06-04 06:25] LABS: Device NASAL CANNULA; Modified Allen's Test Pass; Oxygen Saturation ABG 87.3 % (95.0-100.0); Site Drawn LEFT RADIAL
[2024-06-04 06:27] LABS: Basophils Percent Auto 0.2 % (0.2-1.2); Eosinophils Percent Auto 0.2 % (0-4.4); Hematocrit 45.6 % (37.0-47.0); Hemoglobin 14.5 g/dL (12.0-15.0); Immature Granulocyte Absolute 0.06 K/mm3 (0.00-0.031); Immature Granulocyte Percent A 0.6 % (0-0.5); Immature Platelet Fraction Pct 11.4 % (0.9-11.2); Lymphocytes Absolute Auto 2.35 K/mm3 (0.9-3.2); Mean Corpuscular HGB Conc 31.8 g/dl (32-36); Mean Corpuscular Hemoglobin 31.5 pg (26-34); Mean Corpuscular Volume 99.1 fl (80-100); Mean Platelet Volume 11.8 fl (7.4-10.4); Monocytes Absolute Auto 0.5 K/mm3 (0.1-0.6); Monocytes Percent Auto 5.4 % (2.6-8.5); Neutrophils Absolute Auto 6.4 K/mm3 (1.3-6.7); Neutrophils Percent Auto 68.6 % (45.5-73.1); Platelet Count Result 155 k/mm3 (150-375); Red Cell Distribution Width 13.8 % (11.5-14.5); White Blood Count 9.4 K/mm3 (4.5-10.0)
[2024-06-04 07:02] LABS: CRP 1.3 mg/dL (<1.0)
[2024-06-04] MEDS: IPRATROPIUM 0.5 MG/ALBUTEROL SULFATE 2.5 MG AMPUL.NEB 3 ML NEBULIZE ×4 (07:09→20:41)
[2024-06-04 07:20] LABS: Blood Urea Nitrogen 12 mg/dL (7-17); Calcium 9.4 mg/dL (8.4-10.2); Carbon Dioxide > 40 mmol/L (22-30); Chloride 95 mmol/L (98-107); Estimated CRCL calculation 86 ml/min; Estimated Glomerular Filt Rate > 60; Glucose 150 mg/dL (65-110); Potassium 4.3 mmol/L (3.4-5.0); Procalcitonin 0.1 ng/mL; Sodium 140 mmol/L (137-145)
[2024-06-04 07:50] LABS: Free T4 Free Thyroxine 0.94 ng/mL (0.78-2.19)
[2024-06-04 07:54] LABS: Hemoglobin A1C 7.9 % (<5.7)
[2024-06-04 08:05] LABS: Thyroid Stimulating Hormone 0.159 uIU/mL (0.465-4.680)
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
[2024-06-04] MEDS: ALBUTEROL SULFATE NEB 2.5 MG/3 ML INH INHALATION (10:06)
[2024-06-04] MEDS: BUDESONIDE RESPULE NEB 0.5 MG/2 ML AMP INHALATION ×2 (10:32→20:40)
[2024-06-04] MEDS: SENNA/DOCUSATE SODIUM TABLET 1 TAB PO ×2 (10:56→16:04)
[2024-06-04] MEDS: cloNIDine HCL 0.1 MG TABLET PO ×2 (10:57→20:35)
[2024-06-04] MEDS: DULoxetine HCL 60 MG CAPSULE.DR PO ×2 (10:57→20:34)
[2024-06-04] MEDS: CHOLECALCIFEROL 5,000 UNITS TABLET 5000 UNITS BY MOUTH (10:58)
[2024-06-04] MEDS: PANTOPRAZOLE 40 MG TABLET PO (10:58)
[2024-06-04] MEDS: dilTIAZem HCL CD 120 MG CAP.24HR PO (10:58)
[2024-06-04] MEDS: CYANOCOBALAMIN 500 MCG TABLET PO (10:58)
[2024-06-04] MEDS: FLUTICASONE PROPIONATE 0.05% NA SPR 16 GM BTL (*BKC) 2 SPRAY NASAL ×2 (10:58→20:35)
[2024-06-04] MEDS: METOPROLOL SUCCINATE EXT REL 25 MG TABCR PO (10:58)
[2024-06-04] MEDS: polyethylene glycoL 3350 17 GM POWD.PACK PO (10:59)
[2024-06-04] MEDS: ENOXAPARIN 40 MG/0.4 ML SYRINGE SUB-Q (11:01)
[2024-06-04] MEDS: NYSTATIN 100,000 UNITS/ML SUSP 5 ML ORAL.SUSP PO ×3 (11:01→20:34)
[2024-06-04] MEDS: guaiFENesin 12 HR 600 MG TABCR 1200 MG PO ×2 (11:02→20:35)
[2024-06-04 11:11] LABS: NT Pro B Type Natriuretic Pept 329 pg/mL (19.9-100)
[2024-06-04] MEDS: LORATADINE 10 MG TABLET PO (20:34)
--- NOTE | 2024-06-04 22:27 | PC.NURSE ---
Dr. Wei wanted pt to sit in chair to ascertain if that would improve her breathing. Pt has been bed ridden for years and cannot support herself to sit in a chair or transfer to a chair. Pt was boosted in the bed as high as possible and sat straight up as close to 90degrees as possible. Upon doing so, pt stated that she felt better and her breathing seemed to improve some.
[2024-06-05] VITALS (12 sets, daily range): BP systolic 122–144; BP diastolic 57–73; PULSE 72–93; RESP 14–20; TEMP 36.4–37.1; O2SAT 93–96
[2024-06-05] MEDS: BUDESONIDE RESPULE NEB 0.5 MG/2 ML AMP INHALATION ×2 (07:52→20:20)
[2024-06-05] MEDS: IPRATROPIUM 0.5 MG/ALBUTEROL SULFATE 2.5 MG AMPUL.NEB 3 ML NEBULIZE ×3 (07:52→20:20)
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
[2024-06-05 08:08] LABS: Basophils Absolute Auto 0.1 K/mm3 (0.0-0.1); Basophils Percent Auto 0.9 % (0.2-1.2); Eosinophils Absolute Auto 0.2 K/mm3 (0-0.3); Eosinophils Percent Auto 2.4 % (0-4.4); Hematocrit 49.4 % (37.0-47.0); Hemoglobin 15.5 g/dL (12.0-15.0); Immature Granulocyte Absolute 0.07 K/mm3 (0.00-0.031); Immature Granulocyte Percent A 0.9 % (0-0.5); Lymphocytes Absolute Auto 2.99 K/mm3 (0.9-3.2); Lymphocytes Percent Auto 37.4 % (18.3-44.2); Mean Corpuscular HGB Conc 31.4 g/dl (32-36); Mean Corpuscular Hemoglobin 31.1 pg (26-34); Mean Corpuscular Volume 99.2 fl (80-100); Mean Platelet Volume 10.4 fl (7.4-10.4); Monocytes Absolute Auto 0.6 K/mm3 (0.1-0.6); Monocytes Percent Auto 6.9 % (2.6-8.5); Neutrophils Absolute Auto 4.1 K/mm3 (1.3-6.7); Neutrophils Percent Auto 51.5 % (45.5-73.1); Platelet Count Result 218 k/mm3 (150-375); Red Blood Count 4.98 M/mm3 (4.2-5.4); Red Cell Distribution Width 14.2 % (11.5-14.5)
[2024-06-05 08:23] LABS: Blood Urea Nitrogen 17 mg/dL (7-17); Calcium 9.3 mg/dL (8.4-10.2); Carbon Dioxide > 40 mmol/L (22-30); Chloride 95 mmol/L (98-107); Estimated CRCL calculation 74 ml/min; Estimated Glomerular Filt Rate > 60; Glucose 138 mg/dL (65-110); Potassium 3.6 mmol/L (3.4-5.0); Sodium 141 mmol/L (137-145)
[2024-06-05] MEDS: guaiFENesin 12 HR 600 MG TABCR 1200 MG PO ×2 (09:11→21:10)
[2024-06-05] MEDS: CHOLECALCIFEROL 5,000 UNITS TABLET 5000 UNITS BY MOUTH (09:11)
[2024-06-05] MEDS: cloNIDine HCL 0.1 MG TABLET PO ×2 (09:11→21:10)
[2024-06-05] MEDS: PANTOPRAZOLE 40 MG TABLET PO (09:11)
[2024-06-05] MEDS: METOPROLOL SUCCINATE EXT REL 25 MG TABCR PO (09:11)
[2024-06-05] MEDS: CYANOCOBALAMIN 500 MCG TABLET PO (09:11)
[2024-06-05] MEDS: polyethylene glycoL 3350 17 GM POWD.PACK PO (09:11)
[2024-06-05] MEDS: DULoxetine HCL 60 MG CAPSULE.DR PO ×2 (09:11→21:09)
[2024-06-05] MEDS: predniSONE 10 MG TABLET PO (09:11)
[2024-06-05] MEDS: dilTIAZem HCL CD 120 MG CAP.24HR PO (09:11)
[2024-06-05] MEDS: SENNA/DOCUSATE SODIUM TABLET 1 TAB PO (09:11)
[2024-06-05] MEDS: NYSTATIN 100,000 UNITS/ML SUSP 5 ML ORAL.SUSP PO ×3 (09:12→21:10)
[2024-06-05] MEDS: FLUTICASONE PROPIONATE 0.05% NA SPR 16 GM BTL (*BKC) 2 SPRAY NASAL ×2 (09:12→21:10)
[2024-06-05] MEDS: ENOXAPARIN 40 MG/0.4 ML SYRINGE SUB-Q (09:12)
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
--- NOTE | 2024-06-05 13:44 | PCRCNOTE ---
Window of time for administration has passed. See next scheduled administration.
[2024-06-05] MEDS: ACETAMINOPHEN 500 MG TABLET 1000 MG PO ×2 (13:54→21:10)
[2024-06-05] MEDS: GABAPENTIN 300 MG CAPSULE 600 MG PO ×2 (13:54→21:09)
--- NOTE | 2024-06-05 17:10 | PCRCNOTE ---
Attempted to suction patient orotracheal due to patient sounding full of secretions. Patient tolerated well and RT was able to trigger the pt to cough several times but pt produced little to no secretions. Pt did state she felt better after being suctioned. RN aware of encounter.
[2024-06-05] MEDS: KETOROLAC 15 MG/ML VIAL (*BKC) IV PUSH (18:39)
[2024-06-05 20:01] LABS: Glucose Point of Care 230 mg/dl (65-105)
[2024-06-05] MEDS: LORATADINE 10 MG TABLET PO (21:10)
[2024-06-06] VITALS (19 sets, daily range): BP systolic 131–147; BP diastolic 65–84; PULSE 78–92; RESP 13–20; TEMP 36.2–36.4; O2SAT 91–99
[2024-06-06] MEDS: GABAPENTIN 300 MG CAPSULE 600 MG PO ×2 (05:37→21:10)
[2024-06-06] MEDS: ACETAMINOPHEN 500 MG TABLET 1000 MG PO ×2 (05:37→21:10)
[2024-06-06] MEDS: IPRATROPIUM 0.5 MG/ALBUTEROL SULFATE 2.5 MG AMPUL.NEB 3 ML NEBULIZE ×4 (06:53→21:05)
[2024-06-06] MEDS: BUDESONIDE RESPULE NEB 0.5 MG/2 ML AMP INHALATION ×2 (06:53→21:05)
[2024-06-06 07:35] LABS: Basophils Absolute Auto 0.1 K/mm3 (0.0-0.1); Basophils Percent Auto 0.8 % (0.2-1.2); Eosinophils Absolute Auto 0.2 K/mm3 (0-0.3); Eosinophils Percent Auto 1.8 % (0-4.4); Hematocrit 45.8 % (37.0-47.0); Hemoglobin 14.2 g/dL (12.0-15.0); Immature Granulocyte Absolute 0.07 K/mm3 (0.00-0.031); Immature Granulocyte Percent A 0.8 % (0-0.5); Lymphocytes Absolute Auto 3.47 K/mm3 (0.9-3.2); Lymphocytes Percent Auto 38.3 % (18.3-44.2); Mean Corpuscular Hemoglobin 31.1 pg (26-34); Mean Corpuscular Volume 100.4 fl (80-100); Mean Platelet Volume 10.6 fl (7.4-10.4); Monocytes Absolute Auto 0.7 K/mm3 (0.1-0.6); Monocytes Percent Auto 7.3 % (2.6-8.5); Neutrophils Absolute Auto 4.6 K/mm3 (1.3-6.7); Nucleated Red Blood Cells Perc 0.2 % (0.0-0.2); Platelet Count Result 238 k/mm3 (150-375); Red Blood Count 4.56 M/mm3 (4.2-5.4); Red Cell Distribution Width 14.2 % (11.5-14.5); White Blood Count 9.1 K/mm3 (4.5-10.0)
[2024-06-06 07:44] LABS: Blood Urea Nitrogen 18 mg/dL (7-17); Calcium 8.9 mg/dL (8.4-10.2); Carbon Dioxide > 40 mmol/L (22-30); Chloride 97 mmol/L (98-107); Estimated CRCL calculation 74 ml/min; Estimated Glomerular Filt Rate > 60; Glucose 167 mg/dL (65-110); Potassium 3.9 mmol/L (3.4-5.0); Sodium 140 mmol/L (137-145)
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
--- NOTE | 2024-06-06 08:34 | PM.PNPUL ---
Progress Note: A&P Assessment and Plan (1) Acute and chronic respiratory failure with hypercapnia: Code(s): J96.22 - Acute and chronic respiratory failure with hypercapnia Status: Acute Assessment and Plan: This 74-year-old female, residing at a local long term with a history of traumatic brain injury and a possible history of asthma, chronically on steroids, presented with chest congestion and cough. A chest CT revealed mild bilateral atelectasis, more pronounced on the right side, with findings not consistent with a lower respiratory tract infection. The patient has been treated with short-acting bronchodilators and inhaled steroids, and her steroid regimen is currently being tapered. Reportedly, her respiratory status has improved over the last 3-4 days. Due to her previous brain trauma, the patient cannot provide a reliable history of her current complaints. On physical examination, she has some bilateral rhonchi but no wheezing. In addition to basal atelectasis, the chest CT showed an elevated right hemidiaphragm, which could be related to right hemidiaphragm paralysis. Her most recent ApneaLink study showed no significant oxyhemoglobin desaturation while receiving supplemental oxygen at 3 liters per minute. Plan: Continue with the current regimen of inhaled bronchodilators and nebulized inhaled corticosteroids. Agree with steroid taper. Maintain DVT prophylaxis and supplemental oxygen. Consider a sniff test, if the patient can perform the maneuver, to exclude right hemidiaphragm paralysis. New chest x-ray in a.m.. Patient cannot maintain an upright posture if out of bed in a chair as per RN. (2) Asthma: Code(s): J45.909 - Unspecified asthma, uncomplicated Status: Acute (3) Dependence on wheelchair: Code(s): Z99.3 - Dependence on wheelchair Status: Acute (4) History of traumatic brain injury: Code(s): Z87.820 - Personal history of traumatic brain injury Status: Acute (5) Community acquired pneumonia: Qualifiers: Laterality: unspecified laterality Qualified Code(s): J18.9 - Pneumonia, unspecified organism Code(s): J18.9 - Pneumonia, unspecified organism Status: Ruled-out Subjective Date/time seen: 06/06/24 08:34 Interval history: This 74-year-old female was admitted with a two-day history of cough, congestion, and wheezing from the long term. She was treated for pneumonia with ceftriaxone and azithromycin but currently is off antibiotics.. Prednisone treatment was initiated at 60 mg on 06/01, followed by 40 mg on 06/02, and 20 mg on 06/04. On examination, she had no wheezing. Her breathing worsens when she lies flat, but she reports breathing better when seated in a wheelchair. She is currently on prednisone taper regimen. Over the last 24 hours the patient's respiratory status has been essentially unchanged. Upon questioning today, the patient was again unable to provide a meaningful history of her current complaints, repeatedly responding with I do not know or have pain all over . Review of Systems Review of Systems: All systems reviewed & are unremarkable except as noted in HPI and below (HPI and below) Exam Narrative: GENERAL APPEARANCE: Well developed, well nourished, alert and cooperative, morbidly obese appears to be in mild respiratory distress while on supplemental oxygen via nasal cannula. SKIN: Inspection of the skin reveals no rashes, ulcerations or petechiae. HEENT: Sclerae anicteric and conjunctivae pink and moist. Extraocular movements were intact and pupils were equal. NECK: Supple. There was no thyroid enlargement, and no tenderness, or masses were felt. LUNGS: rhonchi bilaterally, no wheezing CARDIAC: There was a regular rate and rhythm without any murmurs, gallops, rubs. ABDOMEN: Soft and nontender with normal bowel sounds. There was no organomegaly. EXTREMITIES: No cyanosis, clubbing or edema. NEUROLO
[2024-06-06] MEDS: dilTIAZem HCL CD 120 MG CAP.24HR PO (08:51)
[2024-06-06] MEDS: NYSTATIN 100,000 UNITS/ML SUSP 5 ML ORAL.SUSP PO ×3 (08:51→20:30)
[2024-06-06] MEDS: PANTOPRAZOLE 40 MG TABLET PO (08:51)
[2024-06-06] MEDS: predniSONE 10 MG TABLET PO (08:51)
[2024-06-06] MEDS: CYANOCOBALAMIN 500 MCG TABLET PO (08:51)
[2024-06-06] MEDS: cloNIDine HCL 0.1 MG TABLET PO ×2 (08:51→20:32)
[2024-06-06] MEDS: IBUPROFEN 600 MG TABLET PO ×2 (08:51→23:16)
[2024-06-06] MEDS: polyethylene glycoL 3350 17 GM POWD.PACK PO (08:52)
[2024-06-06] MEDS: DULoxetine HCL 60 MG CAPSULE.DR PO ×2 (08:52→20:32)
[2024-06-06] MEDS: guaiFENesin 12 HR 600 MG TABCR 1200 MG PO ×2 (08:52→20:32)
[2024-06-06] MEDS: METOPROLOL SUCCINATE EXT REL 25 MG TABCR PO (08:52)
[2024-06-06] MEDS: CHOLECALCIFEROL 5,000 UNITS TABLET 5000 UNITS BY MOUTH (08:52)
[2024-06-06] MEDS: SENNA/DOCUSATE SODIUM TABLET 1 TAB PO ×2 (08:52→16:54)
[2024-06-06] MEDS: ENOXAPARIN 40 MG/0.4 ML SYRINGE SUB-Q (08:53)
[2024-06-06] MEDS: FLUTICASONE PROPIONATE 0.05% NA SPR 16 GM BTL (*BKC) 2 SPRAY NASAL ×2 (08:53→20:34)
[2024-06-06] MEDS: LORATADINE 10 MG TABLET PO (20:32)
[2024-06-06] MEDS: PHENOL/SOD PHENO SPRAY CHERRY (*BKC) 2 SPRAY MUCOUS MEM ×2 (21:13→23:18)
[2024-06-07] VITALS (17 sets, daily range): BP systolic 116–140; BP diastolic 58–70; PULSE 74–89; RESP 14–20; TEMP 36.3–36.8; O2SAT 92–100; BMI 44.9
[2024-06-07] MEDS: ACETAMINOPHEN 500 MG TABLET 1000 MG PO ×3 (05:21→21:28)
[2024-06-07] MEDS: GABAPENTIN 300 MG CAPSULE 600 MG PO ×3 (05:21→21:28)
[2024-06-07 06:32] LABS: Basophils Absolute Auto 0.1 K/mm3 (0.0-0.1); Basophils Percent Auto 0.7 % (0.2-1.2); Eosinophils Absolute Auto 0.2 K/mm3 (0-0.3); Eosinophils Percent Auto 1.8 % (0-4.4); Hemoglobin 13.2 g/dL (12.0-15.0); Immature Granulocyte Absolute 0.06 K/mm3 (0.00-0.031); Immature Granulocyte Percent A 0.7 % (0-0.5); Lymphocytes Absolute Auto 3.64 K/mm3 (0.9-3.2); Lymphocytes Percent Auto 41.3 % (18.3-44.2); Mean Corpuscular HGB Conc 30.7 g/dl (32-36); Mean Corpuscular Hemoglobin 30.4 pg (26-34); Mean Corpuscular Volume 99.1 fl (80-100); Mean Platelet Volume 10.1 fl (7.4-10.4); Monocytes Absolute Auto 0.6 K/mm3 (0.1-0.6); Monocytes Percent Auto 6.2 % (2.6-8.5); Neutrophils Absolute Auto 4.3 K/mm3 (1.3-6.7); Neutrophils Percent Auto 49.3 % (45.5-73.1); Platelet Count Result 227 k/mm3 (150-375); Red Blood Count 4.34 M/mm3 (4.2-5.4); White Blood Count 8.8 K/mm3 (4.5-10.0)
--- NOTE | 2024-06-07 08:08 | P.PNIM_ITS ---
Progress Note: A&P Assessment and Plan (1) Acute and chronic respiratory failure with hypercapnia: Code(s): J96.22 - Acute and chronic respiratory failure with hypercapnia Status: Acute Assessment and Plan: * Viral bronchitis vs pneumonia vs phrenic nerve paralysis vs asthma exacerbation vs hypoventilation 2/2 obesity * ABG's 06/02 c/w metabolic alkalosis with respiratory compensation * Lasix was stopped 06/03. Now with increased bilateral lower extremity edema. WIll give one time IV lasix today * Minimize sedating drugs (tramadol, pregabalin, mirtazapine) * Optimize pulmonary toilet (nebs, flutter valve). Added Vest CPT today * Wean oxygen as possible. Currently on 2-3 L NC. * F/u ABG showed persistent metabolic alkalosis * Pulmonary consultation appreciated. * - resp panel ordered. Extended Panel is positive for Rhino/enterovirus * Continue with the current regimen of inhaled bronchodilators and nebulized inhaled corticosteroids, mucinex BID * Consider a sniff test, if the patient can perform the maneuver, to exclude right hemidiaphragm paralysis. * Pulmonology had recommended barium swallow but due to body habitus the test cannot be preformed per speech. They have recommended a trial of minced and moist and mildly thicken liquids and follow her response. (2) Dyspnea: Code(s): R06.00 - Dyspnea, unspecified Status: Acute Assessment and Plan: * No evidence for pneumonia or PE * WBC normal and procalcitonin 0.1 * She does have bilateral lower extremity pitting edema concerning for CHF component? BNP ordered for the morning. * No COVID-19, RSV, or Flu A/B. She was positive for rhino/enterovirus on extended pathogen panel * No evidence of PulmHTN seen on 2022 echo, yet dilatated pulmonary arteries seen on CT. Will repeat ECHO. * Suspect mucous plugging superimposed on her chronic respiratory issues with possible acute viral bronchitis * BLE Doppler to rule out DVT given edema and erythema particularly to the right lower extremity. (3) History of PSVT (paroxysmal supraventricular tachycardia): Code(s): Z86.79 - Personal history of other diseases of the circulatory system Status: Acute Assessment and Plan: * Stop low dose metoprolol (has hx of asthma) * Continue diltiazem (4) Edema, peripheral: Code(s): R60.9 - Edema, unspecified Status: Acute Assessment and Plan: Bilateral lower extremity edema +3-4 * concerns for possible clot vs congestion vs third spacing * BNP for the morning * Lasix has been on hold. Will give a 1 time dose today of lasix 40 mg * Venous Doppler ordered. She is not on bench inspector anticoagulation and is immobile at baseline. If Doppler is positive will consider CTA for PE rule out. * Albumin is normal Plan DVT prophylaxis: Lovenox Glycemic control: na Code Status: Full code Disposition: This is a 74 year old female here with shortness of breath. She is being followed by pulmonology. There initially were concerns for pneumonia but imaging is not indicative of lower respiratory process. She does have mucous plugging and poor hypoventilation due to her body habitus. Rhino/enterovirus was positive on extended panel. Medication reconciliation obtained via the following: Nurse completed on admission The file time of this note does not necessarily represent the time the patient was seen. Subjective Date/time seen: 06/07/24 08:08 Interval history: 73 y/o F chetan
--- NOTE | 2024-06-07 08:08 | PM.IMPN ---
Progress Note: A&P Assessment and Plan (1) Acute and chronic respiratory failure with hypercapnia: Code(s): J96.22 - Acute and chronic respiratory failure with hypercapnia Status: Acute Assessment and Plan: Viral bronchitis vs pneumonia vs phrenic nerve paralysis vs asthma exacerbation vs hypoventilation 2/2 obesity ABG's 06/02 c/w metabolic alkalosis with respiratory compensation Lasix was stopped 06/03. Now with increased bilateral lower extremity edema. WIll give one time IV lasix today Minimize sedating drugs (tramadol, pregabalin, mirtazapine) Optimize pulmonary toilet (nebs, flutter valve). Added Vest CPT today Wean oxygen as possible. Currently on 2-3 L NC. F/u ABG showed persistent metabolic alkalosis Pulmonary consultation appreciated. - resp panel ordered. Extended Panel is positive for Rhino/enterovirus Continue with the current regimen of inhaled bronchodilators and nebulized inhaled corticosteroids, mucinex BID Consider a sniff test, if the patient can perform the maneuver, to exclude right hemidiaphragm paralysis. Pulmonology had recommended barium swallow but due to body habitus the test cannot be preformed per speech. They have recommended a trial of minced and moist and mildly thicken liquids and follow her response. (2) Dyspnea: Code(s): R06.00 - Dyspnea, unspecified Status: Acute Assessment and Plan: No evidence for pneumonia or PE WBC normal and procalcitonin 0.1 She does have bilateral lower extremity pitting edema concerning for CHF component? BNP ordered for the morning. No COVID-19, RSV, or Flu A/B. She was positive for rhino/enterovirus on extended pathogen panel No evidence of PulmHTN seen on 2022 echo, yet dilatated pulmonary arteries seen on CT. Will repeat ECHO. Suspect mucous plugging superimposed on her chronic respiratory issues with possible acute viral bronchitis BLE Doppler to rule out DVT given edema and erythema particularly to the right lower extremity. (3) History of PSVT (paroxysmal supraventricular tachycardia): Code(s): Z86.79 - Personal history of other diseases of the circulatory system Status: Acute Assessment and Plan: Stop low dose metoprolol (has hx of asthma) Continue diltiazem (4) Edema, peripheral: Code(s): R60.9 - Edema, unspecified Status: Acute Assessment and Plan: Bilateral lower extremity edema +3-4 concerns for possible clot vs congestion vs third spacing BNP for the morning Lasix has been on hold. Will give a 1 time dose today of lasix 40 mg Venous Doppler ordered. She is not on filler leaf cutter long anticoagulation and is immobile at baseline. If Doppler is positive will consider CTA for PE rule out. Albumin is normal Plan DVT prophylaxis: Lovenox Glycemic control: na Code Status: Full code Disposition: This is a 74 year old female here with shortness of breath. She is being followed by pulmonology. There initially were concerns for pneumonia but imaging is not indicative of lower respiratory process. She does have mucous plugging and poor hypoventilation due to her body habitus. Rhino/enterovirus was positive on extended panel. Medication reconciliation obtained via the following: Nurse completed on admission The file time of this note does not necessarily represent the time the patient was seen. Subjective Date/time seen: 06/07/24 08:08 Interval history: 73 y/o F presents here with shortness of breath with PMH of chronic bronchitis, asthma, CHF, atrial flutter, anxiety/depression, and TBI. The patient presents here from [facility] via EMS for further evaluation of shortness of breath. 06/07: Speech is unable to complete barium swallow due to body habitus. They have recommended minced and moist with mildly thickened liquids. Patient is resting in bed on 3 L NC. She i
[2024-06-07] MEDS: BUDESONIDE RESPULE NEB 0.5 MG/2 ML AMP INHALATION ×2 (08:15→21:22)
[2024-06-07] MEDS: IPRATROPIUM 0.5 MG/ALBUTEROL SULFATE 2.5 MG AMPUL.NEB 3 ML NEBULIZE ×4 (08:16→21:22)
[2024-06-07] MEDS: CHOLECALCIFEROL 5,000 UNITS TABLET 5000 UNITS BY MOUTH (09:19)
[2024-06-07] MEDS: cloNIDine HCL 0.1 MG TABLET PO ×2 (09:19→21:28)
[2024-06-07] MEDS: dilTIAZem HCL CD 120 MG CAP.24HR PO (09:19)
[2024-06-07] MEDS: guaiFENesin 12 HR 600 MG TABCR 1200 MG PO ×2 (09:19→21:28)
[2024-06-07] MEDS: METOPROLOL SUCCINATE EXT REL 25 MG TABCR PO (09:19)
[2024-06-07] MEDS: CYANOCOBALAMIN 500 MCG TABLET PO (09:19)
[2024-06-07] MEDS: SENNA/DOCUSATE SODIUM TABLET 1 TAB PO ×2 (09:19→18:18)
[2024-06-07] MEDS: DULoxetine HCL 60 MG CAPSULE.DR PO ×2 (09:19→21:28)
[2024-06-07] MEDS: ENOXAPARIN 40 MG/0.4 ML SYRINGE SUB-Q (09:19)
[2024-06-07] MEDS: PANTOPRAZOLE 40 MG TABLET PO (09:19)
[2024-06-07] MEDS: predniSONE 10 MG TABLET PO (09:19)
[2024-06-07] MEDS: polyethylene glycoL 3350 17 GM POWD.PACK PO (09:20)
[2024-06-07] MEDS: FLUTICASONE PROPIONATE 0.05% NA SPR 16 GM BTL (*BKC) 2 SPRAY NASAL ×2 (09:20→21:29)
[2024-06-07] MEDS: NYSTATIN 100,000 UNITS/ML SUSP 5 ML ORAL.SUSP PO ×4 (09:20→21:27)
--- NOTE | 2024-06-07 10:43 | PM.PNPUL ---
Progress Note: A&P Assessment and Plan (1) Acute and chronic respiratory failure with hypercapnia: Code(s): J96.22 - Acute and chronic respiratory failure with hypercapnia Status: Acute Assessment and Plan: This 74-year-old female, residing at a local skilled nursing with a history of traumatic brain injury and a possible history of asthma, chronically on steroids, presented with chest congestion and cough. A chest CT revealed mild bilateral atelectasis, more pronounced on the right side, with findings not consistent with a lower respiratory tract infection. The patient has been treated with short-acting bronchodilators and inhaled steroids, and her steroid regimen is currently being tapered. Reportedly, her respiratory status has improved over the last 3-4 days. Due to her previous brain trauma, the patient cannot provide a reliable history of her current complaints. On physical examination, she has some bilateral rhonchi but no wheezing. In addition to basal atelectasis, the chest CT showed an elevated right hemidiaphragm, which could be related to right hemidiaphragm paralysis. Her most recent ApneaLink study showed no significant oxyhemoglobin desaturation while receiving supplemental oxygen at 3 liters per minute. Chest x-ray showed no new infiltrates. Given previous history of traumatic brain injury need to exclude dysphagia with aspiration. Plan: Continue with the current regimen of inhaled bronchodilators and nebulized inhaled corticosteroids. Agree with steroid taper. Maintain DVT prophylaxis and supplemental oxygen. Video swallow study ordered. (2) Asthma: Code(s): J45.909 - Unspecified asthma, uncomplicated Status: Acute (3) Dependence on wheelchair: Code(s): Z99.3 - Dependence on wheelchair Status: Acute (4) History of traumatic brain injury: Code(s): Z87.820 - Personal history of traumatic brain injury Status: Acute (5) Community acquired pneumonia: Qualifiers: Laterality: unspecified laterality Qualified Code(s): J18.9 - Pneumonia, unspecified organism Code(s): J18.9 - Pneumonia, unspecified organism Status: Ruled-out Subjective Date/time seen: 06/07/24 10:43 Interval history: This 74-year-old female was admitted with a two-day history of cough, congestion, and wheezing from the skilled nursing. She was treated for pneumonia with ceftriaxone and azithromycin but currently is off antibiotics.. Prednisone treatment was initiated at 60 mg on 06/01, followed by 40 mg on 06/02, and 20 mg on 06/04. On examination, she had no wheezing. Her breathing worsens when she lies flat, but she reports breathing better when seated in a wheelchair. She is currently on prednisone taper regimen. Over the last 24 hours the patient's respiratory status has been essentially unchanged. She remains on low-flow oxygen via nasal cannula. Afebrile. Review of Systems Review of Systems: All systems reviewed & are unremarkable except as noted in HPI and below (HPI and below) Exam Narrative: GENERAL APPEARANCE: Well developed, well nourished, alert and cooperative, morbidly obese appears to be in mild respiratory distress while on supplemental oxygen via nasal cannula. SKIN: Inspection of the skin reveals no rashes, ulcerations or petechiae. HEENT: Sclerae anicteric and conjunctivae pink and moist. Extraocular movements were intact and pupils were equal. NECK: Supple. There was no thyroid enlargement, and no tenderness, or masses were felt. LUNGS: rhonchi bilaterally, no wheezing CARDIAC: There was a regular rate and rhythm without any murmurs, gallops, rubs. ABDOMEN: Soft and nontender with normal bowel sounds. There was no organomegaly. EXTREMITIES: No cyanosis, clubbing or edema. NEUROLOGIC: Alert, cooperative following verbal commands Objective Data Vital Signs Vital Signs: Vital Signs - 24 hr 06/06/24 11:05 06/06/24 11:13 06/06/24 12:00
--- NOTE | 2024-06-07 11:56 | PCSTNOTE ---
Speech Pathologist consulted with Marlene, radiology inpatient roof shingler concerning order for inpatient Modified Barium Swallow study for patient who reported patient was measured and her size is out of compliance for the videoflouroscopy machine/x-ray table. Therefore a MBS cannot be safely and effectively completed. Therapist contacted Pat, Hospitalist, to discuss options and it was decided to allow patient to remain on Minced and Moist Diet, Level 5, but to change Liquid consistency to Mildly Thick Liquids, Level 2, for 24-48 hours and then re-assess patient's lungs and breathing issues for improvement. Pat was in agreement to try this method; she will contact Dr. Clement, who ordered the MBS, to discuss. At this time, no further ST is suggested.
[2024-06-07 15:03] LABS: Adenovirus DNA Not Detected (Not Detected); Chlamydophila pneumoniae Not Detected (Not Detected); Coronavirus 229E Not Detected (Not Detected); Coronavirus HKU1 Not Detected (Not Detected); Coronavirus NL63 Not Detected (Not Detected); Coronavirus OC43 Not Detected (Not Detected); Human Metapneumovirus Not Detected (Not Detected); Human Parainfluenza Virus 1 Not Detected (Not Detected); Human Parainfluenza Virus 2 Not Detected (Not Detected); Human Parainfluenza Virus 3 Not Detected (Not Detected); Human Parainfluenza Virus 4 Not Detected (Not Detected); Human RSV B Not Detected (Not Detected); Influenza A Not Detected (Not Detected); Influenza B Not Detected (Not Detected); Mycoplasma pneumoniae Not Detected (Not Detected); Rhinovirus/Enterovirus Detected (Not Detected)
[2024-06-07] MEDS: FUROSEMIDE INJ 40 MG/4 ML VIAL IV PUSH (18:18)
[2024-06-07] MEDS: LORATADINE 10 MG TABLET PO (21:29)
[2024-06-08] VITALS (21 sets, daily range): BP systolic 118–130; BP diastolic 57–87; PULSE 71–87; RESP 18–20; TEMP 36.4–37; O2SAT 94–100
--- NOTE | 2024-06-08 | ECHO_ITS ---
Patient Info Name: Shiela Calabrese Age: 74 years : 1950 Gender: Female Ht: 62 in Wt: 320 lbs BSA: 2.62 m2 HR: 86 bpm BP: 116 / 68 mmHg Heart Rhythm: Sinus Rhythm Technical Quality: Poor Exam Date: 06/08/2024 10:11 AM Exam Location: Echo Lab Patient Status: Inpatient Admit Date: 06/01/2024 Staff Ordering Physician: Pat Cyr APRN Cement Mason Apprentice: Alma Camejo RDCS Attending Provider: Pat Cyr APRN Referring Physician: Ger WHITE; Exam Type: CA echo dop color flow w con Study Info Indications - concern for pulmonary HTN Complete two-dimensional, color flow and Doppler transthoracic echocardiogram is performed with contrast to opacify the left ventricle and to improve the deliniation of the left ventricle endocardial borders. Reason for Poor Study: poor echocardiographic windows Summary 1. Technically difficult study with limited views. 2. Left ventricular chamber dimension is normal. 3. Left ventricular systolic function is normal, estimated at >70%. 4. There is mildly increased left ventricular wall thickness. 5. The left ventricular diastolic function is grade I diastolic dysfunction. 6. Left atrial chamber dimension is mildly enlarged. 7. There is mild tricuspid valve regurgitation. 8. Inferior vena cava is not well visualized, therefore, unable to accurately estimate pulmonary arterial systolic pressures to assess for pulmonary hypertension. Left Ventricle Left ventricular chamber dimension is normal. Left ventricular systolic function is normal, estimated at >70%. There is mildly increased left ventricular wall thickness. The left ventricular diastolic function is grade I diastolic dysfunction. Right Ventricle Right ventricular chamber dimension is not well visualized. Left Atria Left atrial chamber dimension is mildly enlarged. Right Atria Right atrial chamber dimension is normal. Atrial Septum Intact interatrial septum visualized by color flow imaging. Aortic Valve The aortic valve is not well visualized. There is no aortic valve stenosis. There is trace aortic valve regurgitation. Pulmonic Valve The pulmonic valve is not well visualized. There is trace pulmonic regurgitation. Mitral Valve There is trace mitral valve regurgitation. Tricuspid Valve There is mild tricuspid valve regurgitation. Pericardium/Pleural The pericardium appears epicardial fat pad. There is no pericardial effusion. Inferior Vena Cava Inferior vena cava is not well visualized, therefore, unable to accurately estimate pulmonary arterial systolic pressures to assess for pulmonary hypertension. Aorta The aortic root size at the sinus of Valsalva is normal. Left Ventricular Outflow Tract Name Value Normal LVOT 2D LVOT Diameter 1.89 cm LVOT Doppler LVOT Peak Gradient 5 mmHg LVOT Mean Gradient 4 mmHg LVOT VTI 28.26 cm LVOT VTI/AV VTI Ratio 0.95 LVOT Stroke Volume 79.29 ml LVOT CO 5.75 l/min LVOT CI 2.19 L/min/m2 Pulmonic Valve
[2024-06-08] MEDS: IBUPROFEN 600 MG TABLET PO (00:19)
[2024-06-08] MEDS: PHENOL/SOD PHENO SPRAY CHERRY (*BKC) 2 SPRAY MUCOUS MEM ×2 (00:19→20:58)
[2024-06-08] MEDS: GABAPENTIN 300 MG CAPSULE 600 MG PO ×3 (05:36→20:56)
[2024-06-08] MEDS: ACETAMINOPHEN 500 MG TABLET 1000 MG PO ×3 (05:36→20:56)
[2024-06-08 06:37] LABS: Basophils Absolute Auto 0.1 K/mm3 (0.0-0.1); Basophils Percent Auto 0.7 % (0.2-1.2); Eosinophils Absolute Auto 0.1 K/mm3 (0-0.3); Eosinophils Percent Auto 1.5 % (0-4.4); Hematocrit 43.8 % (37.0-47.0); Hemoglobin 13.6 g/dL (12.0-15.0); Immature Granulocyte Absolute 0.05 K/mm3 (0.00-0.031); Immature Granulocyte Percent A 0.5 % (0-0.5); Lymphocytes Absolute Auto 3.64 K/mm3 (0.9-3.2); Lymphocytes Percent Auto 37.9 % (18.3-44.2); Mean Corpuscular HGB Conc 31.1 g/dl (32-36); Mean Corpuscular Hemoglobin 31.1 pg (26-34); Mean Corpuscular Volume 100.2 fl (80-100); Mean Platelet Volume 10.5 fl (7.4-10.4); Monocytes Absolute Auto 0.7 K/mm3 (0.1-0.6); Monocytes Percent Auto 6.8 % (2.6-8.5); Neutrophils Absolute Auto 5.1 K/mm3 (1.3-6.7); Neutrophils Percent Auto 52.6 % (45.5-73.1); Platelet Count Result 232 k/mm3 (150-375); Red Blood Count 4.37 M/mm3 (4.2-5.4); Red Cell Distribution Width 13.9 % (11.5-14.5); White Blood Count 9.6 K/mm3 (4.5-10.0)
[2024-06-08 06:54] LABS: NT Pro B Type Natriuretic Pept 207 pg/mL (19.9-100)
--- NOTE | 2024-06-08 07:01 | PCRCNOTE ---
Vest to be started this morning. Patient was asleep last night and did not want to risk waking up more.
[2024-06-08] MEDS: BUDESONIDE RESPULE NEB 0.5 MG/2 ML AMP INHALATION ×2 (08:05→19:57)
[2024-06-08] MEDS: IPRATROPIUM 0.5 MG/ALBUTEROL SULFATE 2.5 MG AMPUL.NEB 3 ML NEBULIZE ×4 (08:05→19:57)
--- NOTE | 2024-06-08 09:07 | P.PNIM_ITS ---
Progress Note: A&P Assessment and Plan (1) Acute and chronic respiratory failure with hypercapnia: Code(s): J96.22 - Acute and chronic respiratory failure with hypercapnia Status: Acute Assessment and Plan: * Viral bronchitis vs pneumonia vs phrenic nerve paralysis vs asthma exacerbation vs hypoventilation 2/2 obesity * ABG's 06/02 c/w metabolic alkalosis with respiratory compensation * Lasix was stopped 06/03. Now with increased bilateral lower extremity edema. WIll give one time IV lasix today * Minimize sedating drugs (tramadol, pregabalin, mirtazapine) * Optimize pulmonary toilet (nebs, flutter valve). Added Vest CPT today * Wean oxygen as possible. Currently on 2-3 L NC. * F/u ABG showed persistent metabolic alkalosis * Pulmonary consultation appreciated. * - resp panel ordered. Extended Panel is positive for Rhino/enterovirus * Continue with the current regimen of inhaled bronchodilators and nebulized inhaled corticosteroids, mucinex BID * Consider a sniff test, if the patient can perform the maneuver, to exclude right hemidiaphragm paralysis. * Pulmonology had recommended barium swallow but due to body habitus the test cannot be preformed per speech. They have recommended a trial of minced and moist and mildly thicken liquids and follow her response. (2) Dyspnea: Code(s): R06.00 - Dyspnea, unspecified Status: Acute Assessment and Plan: * No evidence for pneumonia or PE * WBC normal and procalcitonin 0.1 * She does have bilateral lower extremity pitting edema concerning for CHF component? BNP ordered for the morning. * No COVID-19, RSV, or Flu A/B. She was positive for rhino/enterovirus on extended pathogen panel * No evidence of PulmHTN seen on 2022 echo, yet dilatated pulmonary arteries seen on CT. Will repeat ECHO. * Suspect mucous plugging superimposed on her chronic respiratory issues with possible acute viral bronchitis * BLE Doppler to rule out DVT given edema and erythema particularly to the right lower extremity. (3) History of PSVT (paroxysmal supraventricular tachycardia): Code(s): Z86.79 - Personal history of other diseases of the circulatory system Status: Acute Assessment and Plan: * Stop low dose metoprolol (has hx of asthma) * Continue diltiazem (4) Edema, peripheral: Code(s): R60.9 - Edema, unspecified Status: Acute Assessment and Plan: Bilateral lower extremity edema +3-4 * concerns for possible clot vs congestion vs third spacing * BNP 207 * Lasix has been on hold because of metabolic alkalosis. She still needs fluid removed. Will give acetazolamide today. * Venous Doppler ordered. She is not on usp anticoagulation and is immobile at baseline. If Doppler is negative. * Albumin is low today 3.3. On dietary supplements. Plan DVT prophylaxis: Lovenox Glycemic control: na Code Status: Full code Disposition: This is a 74 year old female here with shortness of breath. She is being followed by pulmonology. There initially were concerns for pneumonia but imaging is not indicative of lower respiratory process. She does have mucous plugging and poor hypoventilation due to her body habitus. Rhino/enterovirus was positive on extended panel. Will diuresis today with Diamox Medication reconciliation obtained via the following: Nurse completed on admission The file time of this note does not necessarily represent the time the patient was seen. Subjective Date/time seen:
--- NOTE | 2024-06-08 09:07 | PM.IMPN ---
Progress Note: A&P Assessment and Plan (1) Acute and chronic respiratory failure with hypercapnia: Code(s): J96.22 - Acute and chronic respiratory failure with hypercapnia Status: Acute Assessment and Plan: Viral bronchitis vs pneumonia vs phrenic nerve paralysis vs asthma exacerbation vs hypoventilation 2/2 obesity ABG's 06/02 c/w metabolic alkalosis with respiratory compensation Lasix was stopped 06/03. Now with increased bilateral lower extremity edema. WIll give one time IV lasix today Minimize sedating drugs (tramadol, pregabalin, mirtazapine) Optimize pulmonary toilet (nebs, flutter valve). Added Vest CPT today Wean oxygen as possible. Currently on 2-3 L NC. F/u ABG showed persistent metabolic alkalosis Pulmonary consultation appreciated. - resp panel ordered. Extended Panel is positive for Rhino/enterovirus Continue with the current regimen of inhaled bronchodilators and nebulized inhaled corticosteroids, mucinex BID Consider a sniff test, if the patient can perform the maneuver, to exclude right hemidiaphragm paralysis. Pulmonology had recommended barium swallow but due to body habitus the test cannot be preformed per speech. They have recommended a trial of minced and moist and mildly thicken liquids and follow her response. (2) Dyspnea: Code(s): R06.00 - Dyspnea, unspecified Status: Acute Assessment and Plan: No evidence for pneumonia or PE WBC normal and procalcitonin 0.1 She does have bilateral lower extremity pitting edema concerning for CHF component? BNP ordered for the morning. No COVID-19, RSV, or Flu A/B. She was positive for rhino/enterovirus on extended pathogen panel No evidence of PulmHTN seen on 2022 echo, yet dilatated pulmonary arteries seen on CT. Will repeat ECHO. Suspect mucous plugging superimposed on her chronic respiratory issues with possible acute viral bronchitis BLE Doppler to rule out DVT given edema and erythema particularly to the right lower extremity. (3) History of PSVT (paroxysmal supraventricular tachycardia): Code(s): Z86.79 - Personal history of other diseases of the circulatory system Status: Acute Assessment and Plan: Stop low dose metoprolol (has hx of asthma) Continue diltiazem (4) Edema, peripheral: Code(s): R60.9 - Edema, unspecified Status: Acute Assessment and Plan: Bilateral lower extremity edema +3-4 concerns for possible clot vs congestion vs third spacing BNP 207 Lasix has been on hold because of metabolic alkalosis. She still needs fluid removed. Will give acetazolamide today. Venous Doppler ordered. She is not on buttermaker continuous churn anticoagulation and is immobile at baseline. If Doppler is negative. Albumin is low today 3.3. On dietary supplements. Plan DVT prophylaxis: Lovenox Glycemic control: na Code Status: Full code Disposition: This is a 74 year old female here with shortness of breath. She is being followed by pulmonology. There initially were concerns for pneumonia but imaging is not indicative of lower respiratory process. She does have mucous plugging and poor hypoventilation due to her body habitus. Rhino/enterovirus was positive on extended panel. Will diuresis today with Diamox Medication reconciliation obtained via the following: Nurse completed on admission The file time of this note does not necessarily represent the time the patient was seen. Subjective Date/time seen: 06/08/24 09:07 Interval history: 73 y/o F presents here with shortness of breath with PMH of chronic bronchitis, asthma, CHF, atrial flutter, anxiety/depression, and TBI. The patient presents here from [facility] via EMS for further evaluation of shortness of breath. 06/07: Speech is unable to complete barium swallow due to body habitus. They have recommended minced and moist with mi
[2024-06-08] MEDS: ENOXAPARIN 40 MG/0.4 ML SYRINGE SUB-Q (09:14)
[2024-06-08] MEDS: DULoxetine HCL 60 MG CAPSULE.DR PO ×2 (09:15→20:56)
[2024-06-08] MEDS: CHOLECALCIFEROL 5,000 UNITS TABLET 5000 UNITS BY MOUTH (09:15)
[2024-06-08] MEDS: dilTIAZem HCL CD 120 MG CAP.24HR PO (09:15)
[2024-06-08] MEDS: SENNA/DOCUSATE SODIUM TABLET 1 TAB PO ×2 (09:15→16:58)
[2024-06-08] MEDS: PANTOPRAZOLE 40 MG TABLET PO (09:15)
[2024-06-08] MEDS: cloNIDine HCL 0.1 MG TABLET PO ×2 (09:15→20:56)
[2024-06-08] MEDS: guaiFENesin 12 HR 600 MG TABCR 1200 MG PO ×2 (09:15→20:56)
[2024-06-08] MEDS: predniSONE 10 MG TABLET PO (09:15)
[2024-06-08] MEDS: METOPROLOL SUCCINATE EXT REL 25 MG TABCR PO (09:15)
[2024-06-08] MEDS: CYANOCOBALAMIN 500 MCG TABLET PO (09:15)
[2024-06-08] MEDS: NYSTATIN 100,000 UNITS/ML SUSP 5 ML ORAL.SUSP PO ×4 (09:16→20:57)
[2024-06-08] MEDS: polyethylene glycoL 3350 17 GM POWD.PACK PO (09:16)
[2024-06-08] MEDS: FLUTICASONE PROPIONATE 0.05% NA SPR 16 GM BTL (*BKC) 2 SPRAY NASAL ×2 (09:17→20:58)
[2024-06-08 09:54] LABS: Alanine Aminotransferase 18 U/L (6-35); Albumin Level 3.3 g/dL (3.5-5.1); Alkaline Phosphatase 51 U/L (38-126); Anion Gap 6 mmol/L (4-12); Aspartate Amino Transferase 18 U/L (14-36); Bilirubin,Total 0.5 mg/dL (0.2-1.3); Blood Urea Nitrogen 14 mg/dL (7-17); Calcium 8.6 mg/dL (8.4-10.2); Carbon Dioxide 38 mmol/L (22-30); Chloride 96 mmol/L (98-107); Estimated CRCL calculation 74 ml/min; Estimated Glomerular Filt Rate > 60; Glucose 140 mg/dL (65-110); Potassium 3.4 mmol/L (3.4-5.0); Sodium 140 mmol/L (137-145)
[2024-06-08] MEDS: PERFLUTREN LIPID MICROSPHERES 1.5 ML VIAL DILUTED TO 10 ML TOTAL VOLUME IV PUSH (10:20)
--- NOTE | 2024-06-08 10:43 | IVDEFINITY ---
Prior to administration of IV Definity the patient was educated on the risks and benefits of the imaging enhancing agent including potential adverse side effects. The patient verbalized understanding. Allergies were verified. No exclusion criteria were identified and at least one of the following inclusion criteria were met: 1) physician request, 2) patient technically difficult to image (per the [place] [employer] guidelines of two or more segments not discernable within the apical view), or 3) questionable left ventricular function. ?
--- NOTE | 2024-06-08 14:17 | PM.PNPUL ---
Progress Note: A&P Assessment and Plan (1) Acute and chronic respiratory failure with hypercapnia: Code(s): J96.22 - Acute and chronic respiratory failure with hypercapnia Status: Acute Assessment and Plan: This 74-year-old female, residing at a local skilled nursing with a history of traumatic brain injury and a possible history of asthma, chronically on steroids, presented with chest congestion and cough. A chest CT revealed mild bilateral atelectasis, more pronounced on the right side, with findings not consistent with a lower respiratory tract infection. The patient has been treated with short-acting bronchodilators and inhaled steroids, and her steroid regimen is currently being tapered. Reportedly, her respiratory status has improved over the last 3-4 days. Due to her previous brain trauma, the patient cannot provide a reliable history of her current complaints. On physical examination, she has some bilateral rhonchi but no wheezing. In addition to basal atelectasis, the chest CT showed an elevated right hemidiaphragm, which could be related to right hemidiaphragm paralysis. Her most recent ApneaLink study showed no significant oxyhemoglobin desaturation while receiving supplemental oxygen at 3 liters per minute. Chest x-ray showed no new infiltrates. Given previous history of traumatic brain injury need to exclude dysphagia with aspiration but video swallow study could not be conducted. Please refer to the speech pathologist's node. Plan: Continue with the current regimen of inhaled bronchodilators and nebulized inhaled corticosteroids. Agree with steroid taper. Maintain DVT prophylaxis and supplemental oxygen. (2) Asthma: Code(s): J45.909 - Unspecified asthma, uncomplicated Status: Acute (3) Dependence on wheelchair: Code(s): Z99.3 - Dependence on wheelchair Status: Acute (4) History of traumatic brain injury: Code(s): Z87.820 - Personal history of traumatic brain injury Status: Acute (5) Community acquired pneumonia: Qualifiers: Laterality: unspecified laterality Qualified Code(s): J18.9 - Pneumonia, unspecified organism Code(s): J18.9 - Pneumonia, unspecified organism Status: Ruled-out Subjective Date/time seen: 06/08/24 14:17 Interval history: S no change in patient's respiratory conditions. The patient again not being able to provide any information about improvement of her clinical condition. Video swallow study could not be done. On tapering prednisone regimen. Review of Systems Review of Systems: All systems reviewed & are unremarkable except as noted in HPI and below (HPI and below) Exam Narrative: GENERAL APPEARANCE: Well developed, well nourished, alert and cooperative, morbidly obese appears to be in mild respiratory distress while on supplemental oxygen via nasal cannula. SKIN: Inspection of the skin reveals no rashes, ulcerations or petechiae. HEENT: Sclerae anicteric and conjunctivae pink and moist. Extraocular movements were intact and pupils were equal. NECK: Supple. There was no thyroid enlargement, and no tenderness, or masses were felt. LUNGS: rhonchi bilaterally, no wheezing CARDIAC: There was a regular rate and rhythm without any murmurs, gallops, rubs. ABDOMEN: Soft and nontender with normal bowel sounds. There was no organomegaly. EXTREMITIES: No cyanosis, clubbing or edema. NEUROLOGIC: Alert, cooperative following verbal commands Objective Data Vital Signs Vital Signs: Vital Signs - 24 hr 06/07/24 16:13 06/07/24 16:13 06/07/24 16:20 Temperature Pulse Rate 81 78 Respiratory Rate 16 18 Blood Pressure Pulse Oximetry 94 Oxygen Delivery Oxygen Flow Rate Fraction of Inspired Oxygen 06/07/24 16:00 06/07/24 21:23 06/07/24 21:27 Temperature Pulse Rate 81 86 86 Respiratory Rate 18 Blood Pressure Pulse Oximetry 93 Oxygen Delivery Nasal Cannula Oxygen Flow R
[2024-06-08] MEDS: acetaZOLAMIDE SODIUM FOR INJ 500 MG VIAL IV PUSH (16:58)
[2024-06-08 17:28] LABS: Pneumococcal Antigen Urine NOT DETECTED
[2024-06-08] MEDS: LORATADINE 10 MG TABLET PO (20:56)
[2024-06-08] MEDS: ALBUTEROL SULFATE NEB 2.5 MG/3 ML INH INHALATION (22:14)
[2024-06-09] VITALS (14 sets, daily range): BP systolic 130–146; BP diastolic 60–80; PULSE 70–80; RESP 18–20; TEMP 35.2–37.3; O2SAT 92–100
[2024-06-09 03:49] LABS: Legionella pneumophila Ag Ur NOT DETECTED
[2024-06-09] MEDS: ACETAMINOPHEN 500 MG TABLET 1000 MG PO ×3 (05:38→20:54)
[2024-06-09] MEDS: GABAPENTIN 300 MG CAPSULE 600 MG PO ×3 (05:38→20:54)
[2024-06-09] MEDS: PHENOL/SOD PHENO SPRAY CHERRY (*BKC) 2 SPRAY MUCOUS MEM (05:40)
[2024-06-09 06:27] LABS: Basophils Absolute Auto 0.1 K/mm3 (0.0-0.1); Basophils Percent Auto 0.6 % (0.2-1.2); Eosinophils Absolute Auto 0.1 K/mm3 (0-0.3); Eosinophils Percent Auto 1.2 % (0-4.4); Hematocrit 42.8 % (37.0-47.0); Hemoglobin 13.5 g/dL (12.0-15.0); Immature Granulocyte Absolute 0.05 K/mm3 (0.00-0.031); Immature Granulocyte Percent A 0.6 % (0-0.5); Lymphocytes Absolute Auto 3.39 K/mm3 (0.9-3.2); Lymphocytes Percent Auto 37.5 % (18.3-44.2); Mean Corpuscular HGB Conc 31.5 g/dl (32-36); Mean Corpuscular Hemoglobin 31.4 pg (26-34); Mean Corpuscular Volume 99.5 fl (80-100); Mean Platelet Volume 10.4 fl (7.4-10.4); Monocytes Absolute Auto 0.7 K/mm3 (0.1-0.6); Monocytes Percent Auto 7.3 % (2.6-8.5); Neutrophils Absolute Auto 4.8 K/mm3 (1.3-6.7); Neutrophils Percent Auto 52.8 % (45.5-73.1); Platelet Count Result 213 k/mm3 (150-375); Red Cell Distribution Width 13.9 % (11.5-14.5)
[2024-06-09 06:40] LABS: Alanine Aminotransferase 17 U/L (6-35); Albumin Level 3.4 g/dL (3.5-5.1); Alkaline Phosphatase 49 U/L (38-126); Anion Gap 4 mmol/L (4-12); Aspartate Amino Transferase 16 U/L (14-36); Bilirubin,Total 0.6 mg/dL (0.2-1.3); Blood Urea Nitrogen 17 mg/dL (7-17); Calcium 8.7 mg/dL (8.4-10.2); Carbon Dioxide 36 mmol/L (22-30); Chloride 98 mmol/L (98-107); Estimated CRCL calculation 64 ml/min; Estimated Glomerular Filt Rate > 60; Glucose 139 mg/dL (65-110); Magnesium 2.2 mg/dL (1.6-2.3); Sodium 138 mmol/L (137-145)
[2024-06-09] MEDS: BUDESONIDE RESPULE NEB 0.5 MG/2 ML AMP INHALATION ×2 (07:33→20:02)
[2024-06-09] MEDS: IPRATROPIUM 0.5 MG/ALBUTEROL SULFATE 2.5 MG AMPUL.NEB 3 ML NEBULIZE ×4 (07:33→20:02)
--- NOTE | 2024-06-09 09:05 | PM.PNPUL ---
Progress Note: A&P Assessment and Plan (1) Acute and chronic respiratory failure with hypercapnia: Code(s): J96.22 - Acute and chronic respiratory failure with hypercapnia Status: Acute Assessment and Plan: This 74-year-old female, residing at a local group home with a history of traumatic brain injury and a possible history of asthma, chronically on steroids, presented with chest congestion and cough. A chest CT revealed mild bilateral atelectasis, more pronounced on the right side, with findings not consistent with a lower respiratory tract infection. The patient has been treated with short-acting bronchodilators and inhaled steroids, and her steroid regimen is currently being tapered. Reportedly, her respiratory status has improved over the last 3-4 days. Due to her previous brain trauma, the patient cannot provide a reliable history of her current complaints. On physical examination, she has some bilateral rhonchi but no wheezing. In addition to basal atelectasis, the chest CT showed an elevated right hemidiaphragm, which could be related to right hemidiaphragm paralysis. Her most recent ApneaLink study showed no significant oxyhemoglobin desaturation while receiving supplemental oxygen at 3 liters per minute. Chest x-ray showed no new infiltrates. Given previous history of traumatic brain injury need to exclude dysphagia with aspiration but video swallow study could not be conducted. Please refer to the speech pathologist's node. Her diet has been modified at the request of the speech pathologist. Plan: Continue with the current regimen of inhaled bronchodilators and nebulized inhaled corticosteroids, vest treatments. Maintain DVT prophylaxis and supplemental oxygen. Monitor electrolytes. Will continue to follow along with you. (2) Asthma: Code(s): J45.909 - Unspecified asthma, uncomplicated Status: Acute (3) Dependence on wheelchair: Code(s): Z99.3 - Dependence on wheelchair Status: Acute (4) History of traumatic brain injury: Code(s): Z87.820 - Personal history of traumatic brain injury Status: Acute (5) Community acquired pneumonia: Qualifiers: Laterality: unspecified laterality Qualified Code(s): J18.9 - Pneumonia, unspecified organism Code(s): J18.9 - Pneumonia, unspecified organism Status: Ruled-out Subjective Date/time seen: 06/09/24 09:05 Interval history: Patient offers no new complaints. Still with chest congestion undergoing treatment with vest daily. Afebrile.. Review of Systems Review of Systems: All systems reviewed & are unremarkable except as noted in HPI and below (HPI and below) Exam Narrative: GENERAL APPEARANCE: Well developed, well nourished, alert and cooperative, morbidly obese appears to be in mild respiratory distress while on supplemental oxygen via nasal cannula. SKIN: Inspection of the skin reveals no rashes, ulcerations or petechiae. HEENT: Sclerae anicteric and conjunctivae pink and moist. Extraocular movements were intact and pupils were equal. NECK: Supple. There was no thyroid enlargement, and no tenderness, or masses were felt. LUNGS: rhonchi bilaterally, no wheezing CARDIAC: There was a regular rate and rhythm without any murmurs, gallops, rubs. ABDOMEN: Soft and nontender with normal bowel sounds. There was no organomegaly. EXTREMITIES: No cyanosis, clubbing or edema. NEUROLOGIC: Alert, cooperative following verbal commands Objective Data Vital Signs Vital Signs: Vital Signs - 24 hr 06/08/24 09:15 06/08/24 11:09 06/08/24 11:24 Temperature Pulse Rate 84 71 72 Respiratory Rate 18 18 Blood Pressure Pulse Oximetry Oxygen Delivery Oxygen Flow Rate Fraction of Inspired Oxygen 06/08/24 15:42 06/08/24 15:52 06/08/24 14:00 Temperature 36.8 C Pulse Rate 76 74 73 Respiratory Rate 18 18 18 Blood Pressure 118/63 Pulse Oximetry 100 Oxygen Delivery
[2024-06-09] MEDS: FLUTICASONE PROPIONATE 0.05% NA SPR 16 GM BTL (*BKC) 2 SPRAY NASAL ×2 (09:17→20:55)
[2024-06-09] MEDS: polyethylene glycoL 3350 17 GM POWD.PACK PO (10:17)
[2024-06-09] MEDS: dilTIAZem HCL CD 120 MG CAP.24HR PO (10:17)
[2024-06-09] MEDS: guaiFENesin 12 HR 600 MG TABCR 1200 MG PO ×2 (10:17→20:53)
[2024-06-09] MEDS: predniSONE 10 MG TABLET PO (10:17)
[2024-06-09] MEDS: NYSTATIN 100,000 UNITS/ML SUSP 5 ML ORAL.SUSP PO ×4 (10:17→20:54)
[2024-06-09] MEDS: CYANOCOBALAMIN 500 MCG TABLET PO (10:17)
[2024-06-09] MEDS: SPIRONOLACTONE 25 MG TABLET PO (10:18)
[2024-06-09] MEDS: PANTOPRAZOLE 40 MG TABLET PO (10:18)
[2024-06-09] MEDS: cloNIDine HCL 0.1 MG TABLET PO ×2 (10:18→20:54)
[2024-06-09] MEDS: CHOLECALCIFEROL 5,000 UNITS TABLET 5000 UNITS BY MOUTH (10:18)
[2024-06-09] MEDS: SENNA/DOCUSATE SODIUM TABLET 1 TAB PO ×2 (10:18→20:07)
[2024-06-09] MEDS: METOPROLOL SUCCINATE EXT REL 25 MG TABCR PO (10:18)
[2024-06-09] MEDS: ENOXAPARIN 40 MG/0.4 ML SYRINGE SUB-Q (10:19)
[2024-06-09] MEDS: DULoxetine HCL 60 MG CAPSULE.DR PO ×2 (10:19→20:54)
--- NOTE | 2024-06-09 13:34 | P.DS_ITS ---
DS: Admitting Diagnosis Discharge Date 06/09 Admitting Diagnosis shortness of breath DS: Discharge Diagnosis Discharge Diagnosis (1) Acute and chronic respiratory failure with hypercapnia: Code(s): J96.22 - Acute and chronic respiratory failure with hypercapnia Status: Acute Assessment and Plan: * Viral bronchitis vs pneumonia vs phrenic nerve paralysis vs asthma exacerbation vs hypoventilation 2/2 obesity * ABG's 06/02 c/w metabolic alkalosis with respiratory compensation * Lasix was stopped 06/03. Now with increased bilateral lower extremity edema. WIll give one time IV lasix today * Minimize sedating drugs (tramadol, pregabalin, mirtazapine) * Optimize pulmonary toilet (nebs, flutter valve). Added Vest CPT today * Wean oxygen as possible. Currently on 2-3 L NC. * F/u ABG showed persistent metabolic alkalosis * Pulmonary consultation appreciated. * - resp panel ordered. Extended Panel is positive for Rhino/enterovirus * Continue with the current regimen of inhaled bronchodilators and nebulized inhaled corticosteroids, mucinex BID * Consider a sniff test, if the patient can perform the maneuver, to exclude right hemidiaphragm paralysis. * Pulmonology had recommended barium swallow but due to body habitus the test cannot be preformed per speech. They have recommended a trial of minced and moist and mildly thicken liquids and follow her response. (2) Dyspnea: Code(s): R06.00 - Dyspnea, unspecified Status: Acute Assessment and Plan: * No evidence for pneumonia or PE * WBC normal and procalcitonin 0.1 * She does have bilateral lower extremity pitting edema concerning for CHF component? BNP ordered for the morning. * No COVID-19, RSV, or Flu A/B. She was positive for rhino/enterovirus on ext ended pathogen panel * No evidence of PulmHTN seen on 2022 echo, yet dilatated pulmonary arteries seen on CT. Will repeat ECHO. * Suspect mucous plugging superimposed on her chronic respiratory issues with possible acute viral bronchitis * BLE Doppler to rule out DVT given edema and erythema particularly to the right lower extremity. (3) History of PSVT (paroxysmal supraventricular tachycardia): Code(s): Z86.79 - Personal history of other diseases of the circulatory system Status: Acute Assessment and Plan: * Stop low dose metoprolol (has hx of asthma) * Continue diltiazem (4) Edema, peripheral: Code(s): R60.9 - Edema, unspecified Status: Acute Assessment and Plan: Bilateral lower extremity edema +3-4 * concerns for possible clot vs congestion vs third spacing * BNP 207 * Lasix has been on hold because of metabolic alkalosis. She still needs fluid removed. Will give acetazolamide today. * Venous Doppler ordered. She is not on long term care social worker anticoagulation and is immobile at baseline. If Doppler is negative. * Albumin is low today 3.3. On dietary supplements. (5) Metabolic alkalosis: Code(s): E87.3 - Alkalosis Status: Acute Assessment and Plan: Likely from loop diuretic * Lasix was held * Diuresis with Diamox * Patient was changed to spironolactone Plan DVT prophylaxis: Lovenox Glycemic control: na Code Status: Full code Disposition: This is a 74 year old female here with shortness of breath. She is being followed by pulmonology. There initially were concerns for pneumonia but imaging is not indicative of lower respiratory process. She does have mucous plugging and poor hypoventilation due to her body habitus. Rhino/enterovirus was positive on extended panel. Will diuresis today with Diamox
--- NOTE | 2024-06-09 13:34 | PM.DS ---
DS: Admitting Diagnosis Discharge Date 06/09 Admitting Diagnosis shortness of breath DS: Discharge Diagnosis Discharge Diagnosis (1) Acute and chronic respiratory failure with hypercapnia: Code(s): J96.22 - Acute and chronic respiratory failure with hypercapnia Status: Acute Assessment and Plan: Viral bronchitis vs pneumonia vs phrenic nerve paralysis vs asthma exacerbation vs hypoventilation 2/2 obesity ABG's 06/02 c/w metabolic alkalosis with respiratory compensation Lasix was stopped 06/03. Now with increased bilateral lower extremity edema. WIll give one time IV lasix today Minimize sedating drugs (tramadol, pregabalin, mirtazapine) Optimize pulmonary toilet (nebs, flutter valve). Added Vest CPT today Wean oxygen as possible. Currently on 2-3 L NC. F/u ABG showed persistent metabolic alkalosis Pulmonary consultation appreciated. - resp panel ordered. Extended Panel is positive for Rhino/enterovirus Continue with the current regimen of inhaled bronchodilators and nebulized inhaled corticosteroids, mucinex BID Consider a sniff test, if the patient can perform the maneuver, to exclude right hemidiaphragm paralysis. Pulmonology had recommended barium swallow but due to body habitus the test cannot be preformed per speech. They have recommended a trial of minced and moist and mildly thicken liquids and follow her response. (2) Dyspnea: Code(s): R06.00 - Dyspnea, unspecified Status: Acute Assessment and Plan: No evidence for pneumonia or PE WBC normal and procalcitonin 0.1 She does have bilateral lower extremity pitting edema concerning for CHF component? BNP ordered for the morning. No COVID-19, RSV, or Flu A/B. She was positive for rhino/enterovirus on extended pathogen panel No evidence of PulmHTN seen on 2022 echo, yet dilatated pulmonary arteries seen on CT. Will repeat ECHO. Suspect mucous plugging superimposed on her chronic respiratory issues with possible acute viral bronchitis BLE Doppler to rule out DVT given edema and erythema particularly to the right lower extremity. (3) History of PSVT (paroxysmal supraventricular tachycardia): Code(s): Z86.79 - Personal history of other diseases of the circulatory system Status: Acute Assessment and Plan: Stop low dose metoprolol (has hx of asthma) Continue diltiazem (4) Edema, peripheral: Code(s): R60.9 - Edema, unspecified Status: Acute Assessment and Plan: Bilateral lower extremity edema +3-4 concerns for possible clot vs congestion vs third spacing BNP 207 Lasix has been on hold because of metabolic alkalosis. She still needs fluid removed. Will give acetazolamide today. Venous Doppler ordered. She is not on fpc anticoagulation and is immobile at baseline. If Doppler is negative. Albumin is low today 3.3. On dietary supplements. (5) Metabolic alkalosis: Code(s): E87.3 - Alkalosis Status: Acute Assessment and Plan: Likely from loop diuretic Lasix was held Diuresis with Diamox Patient was changed to spironolactone Plan DVT prophylaxis: Lovenox Glycemic control: na Code Status: Full code Disposition: This is a 74 year old female here with shortness of breath. She is being followed by pulmonology. There initially were concerns for pneumonia but imaging is not indicative of lower respiratory process. She does have mucous plugging and poor hypoventilation due to her body habitus. Rhino/enterovirus was positive on extended panel. Will diuresis today with Diamox Medication reconciliation obtained via the following: Nurse completed on admission The file time of this note does not necessarily represent the time the patient was seen. DS: Summary Hospital Course Reason for hospitalization: Pneumonia, viral bronchitis, metabolic alkalosis Hosp
[2024-06-09] MEDS: POTASSIUM CHLORIDE 20 MEQ ER TABLET 40 MEQ PO (15:16)
[2024-06-09 18:08] LABS: Mycoplasma IgM Antibody Titer 131 U/mL
[2024-06-09] MEDS: LORATADINE 10 MG TABLET PO (20:54)
== END 2024-06-09 22:52 | DRG 189 ==
LOC: ANHED 08:01 → ANH3MEDSUR 10:04
PROVIDERS: Internal Medicine; Internal Medicine Pulmonary Disease; Nurse Practitioner Acute Care; Student in an Organized Health Care Education/Training Program; Admitting Provider General Practice; Emergency Provider Emergency Medicine; PCP Family Medicine; Visit Provider Nurse Practitioner Acute Care
DX: J96.22 Acute and chronic respiratory failure with hypercapnia (principal); J12.9 Viral pneumonia, unspecified; E87.3 Alkalosis; B34.1 Enterovirus infection, unspecified; B34.8 Other viral infections of unspecified site; T17.990A Other foreign object in respiratory tract, part unspecified in causing asphyxiation, initial encounter; J45.909 Unspecified asthma, uncomplicated; F41.8 Other specified anxiety disorders; M19.90 Unspecified osteoarthritis, unspecified site; R07.0 Pain in throat; M21.379 Foot drop, unspecified foot; G89.4 Chronic pain syndrome; R60.9 Edema, unspecified; G47.33 Obstructive sleep apnea (adult) (pediatric); R73.9 Hyperglycemia, unspecified; T38.0X5A Adverse effect of glucocorticoids and synthetic analogues, initial encounter; Z20.822 Contact with and (suspected) exposure to COVID-19; Z99.3 Dependence on wheelchair; Z86.79 Personal history of other diseases of the circulatory system; Z87.820 Personal history of traumatic brain injury; Z90.49 Acquired absence of other specified parts of digestive tract; Z87.891 Personal history of nicotine dependence; E66.01 Morbid (severe) obesity due to excess calories; Z68.35 Body mass index [BMI] 35.0-35.9, adult; Z79.52 Long term (current) use of systemic steroids
CPT/HCPCS: 36415; 36600; 70491; 71045; 71260; 80048; 80053; 82805; 82948; 83036; 83735; 83880; 84100; 84145; 84439; 84443; 85025; 85055; 85652; 86140; 86738; 87040; 87070; 87205; 87449; 87633; 87637; 87641; 87899; 92610; 93005; 93970; 94640; 94667; 94668; 94669; 94762; 96365; 96366; 96367; 96375; 99285; A9270; C8929; G0378; J0456; J0696; J1120; J1650; J1885; J1940; J7512; Q9957; Q9967

== ENCOUNTER 2024-06-15 11:30 | Inpatient (IN) | payer MEDICARE, MEDICAID, SELFPAY ==
[2024-06-15] VITALS (14 sets, daily range): BP systolic 104–116; BP diastolic 44–68; PULSE 61–71; RESP 14–21; TEMP 36.5–36.8; O2SAT 94–100; BMI 42.4
--- NOTE | ~2024-06-15 | CT_ITS ---
EXAMINATION: CT brain wo con DATE: 06/16/2024 14:36 INDICATION: Confusion TECHNIQUE: Computed tomography (CT) of the head was performed without intravenous contrast. Sagittal and coronal reconstructions were performed. The mA was adjusted according to patient size. Iterative reconstruction technique was employed. The dose-length product was 681.00 mGy-cm. 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 Stable appearance of prominent secondary expected dilation of the right later al ventricle. No acute intracranial hemorrhage, acute infarction or abnormal extra axial fluid collec tion. Symmetric prominence of the sulci consistent with moderate diffuse cerebral volume loss. No mas s/mass effect. Changes of bilateral intraocular lens replacement. Large right and minimal left mastoi d effusions. Visualized paranasal sinuses are clear. IMPRESSION: 1. Stable appearance of moderate diffuse volume loss and encephalomalacia corresponding to old infarc ts at the right frontal, parietal and occipital lobes and left frontoparietal region. No acute interc ranial process. 2. Minimal left and large right mastoid effusions. Reviewed, dictated and finalized at location B. IMPRESSION: 1. Stable appearance of moderate diffuse volume loss and encephalomalacia corre sponding to old infarcts at the right frontal, parietal and occipital lobes and left frontoparietal region. No acute intercranial process. 2. Minimal left and large right mastoid effusions.
--- NOTE | ~2024-06-15 | CT_ITS ---
EXAMINATION: CT soft tissue neck chest w DATE: 06/16/2024 14:37 INDICATION: Neck swelling. TECHNIQUE: Computed tomography (CT) of the neck and chest was performed with 75 mL Omnipaque-350 intr avenous contrast. Automated exposure control and iterative reconstruction technique were employed. Th e dose-length product was 1120.88 mGy-cm. COMPARISON: neck and chest CT 06/01/24 FINDINGS: CT NECK: There is no lymphadenopathy. There is plaque in the proximal internal carotids arteries with less than 50% stenosis relative to normal distal artery lumen diameters. There are likely changes of ocular lens replacement surgeries. There is severe cervical spondylosis. CT CHEST: The lungs demonstrate mild atelectasis. Calcified pulmonary nodules and calcified hilar lym ph nodes are consistent with old granulomatous disease. No pleural effusion. The heart size is normal . No pericardial effusion. There is a benign bone island in left femoral head. There is mild thoracic spondylosis. There are chronic compression fractures of T5 and T10. IMPRESSION: 1. No etiology for the patient's symptoms. Reviewed, dictated and finalized at location A.
--- NOTE | ~2024-06-15 | XR_ITS ---
EXAMINATION: XR chest 1V portable DATE: 06/15/2024 12:27 INDICATION: Dyspnea. TECHNIQUE: A single frontal view of the chest was obtained. COMPARISON: Chest single view 06/07/2024, chest CT 06/01/2024 FINDINGS: There are airspace opacities in the lower lung zones. No pleural effusion or pneumothorax. The heart size is normal. Mediastinal lipomatosis is noted. There is a benign bone island in the left humerus. IMPRESSION: 1. Airspace opacities in the lower lung zones, consistent with atelectasis versus pneumonia. Reviewed, dictated and finalized at location A. IMPRESSION: 1. Airspace opacities in the lower lung zones, consistent with atelectasis vers us pneumonia.
--- NOTE | 2024-06-15 11:33 | ECG_ITS ---
Test Date: 2024-06-15 11:44:19 Measurements Intervals [place] Rate: 60 P: 36 MD: 126 QRS: -22 QRSD: 90 T: 55 QT: 401 QTc: 404 Interpretive Statements SINUS RHYTHM DELAYED PRECORDIAL R/S TRANSITION BORDERLINE ST-T WAVE ABNORMALITY- HIGH LATERAL LEADS BASELINE ARTIFACT- I, II, AVR, AVL BORDERLINE ECG Compared to ECG 05/31/2024 07:53:39 Short MD interval no longer present Electronically Signed On 06-15-2024 11:53:41 CDT by Masoud Chairez D.O.
[2024-06-15 11:56] LABS: Alveolar/Arterial O2 Gradient 85.4 mmHg; Base Excess ABG 7.7 mEq/l (+/-2.0); Carboxyhemoglobin 0.7 % THb (0-2.0); Fractional Inspired Oxygen 32 %; HCO3 ABG 35.6 mEq/l (22.0-26.0); Methemoglobin ABG 0.3 %THb (0-1.5); Oxygen Saturation ABG 91.6 % (95.0-100.0); Oxyhemoglobin 93.2 % THb (90.0-100.0); PO2 ABG 66.1 mmHg (80.0-100.0); PO2 FiO2 Ratio Arterial Blood 2.07 %; Reduced Hemoglobin 5.8 %THb (0-5.0); Total Hemoglobin 13.7 g/dL (12.0-18.0); pH ABG 7.353 (7.350-7.450)
[2024-06-15 11:56] LABS: Basophils Percent Auto 0.3 % (0.2-1.2); Eosinophils Absolute Auto 0.1 K/mm3 (0-0.3); Eosinophils Percent Auto 0.4 % (0-4.4); Hematocrit 42.6 % (37.0-47.0); Hemoglobin 13.4 g/dL (12.0-15.0); Immature Granulocyte Absolute 0.13 K/mm3 (0.00-0.031); Lymphocytes Absolute Auto 1.23 K/mm3 (0.9-3.2); Lymphocytes Percent Auto 9.5 % (18.3-44.2); Mean Corpuscular HGB Conc 31.5 g/dl (32-36); Mean Corpuscular Hemoglobin 31.9 pg (26-34); Mean Corpuscular Volume 101.4 fl (80-100); Mean Platelet Volume 10.6 fl (7.4-10.4); Monocytes Absolute Auto 0.5 K/mm3 (0.1-0.6); Monocytes Percent Auto 3.5 % (2.6-8.5); Neutrophils Absolute Auto 11.1 K/mm3 (1.3-6.7); Neutrophils Percent Auto 85.3 % (45.5-73.1); Platelet Count Result 242 k/mm3 (150-375)
[2024-06-15 12:00] LABS: Modified Allen's Test Pass; PCO2 ABG 65.5 mmHg (35.0-45.0); Site Drawn LEFT RADIAL
[2024-06-15 12:01] LABS: Device NASAL CANNULA
[2024-06-15 12:09] LABS: INR 0.9; Prothrombin Time 12.8 Seconds (11.1-14.7)
[2024-06-15] MEDS: IPRATROPIUM 0.5 MG/ALBUTEROL SULFATE 2.5 MG AMPUL.NEB 3 ML INHALATION ×2 (12:09→21:28)
[2024-06-15 12:10] LABS: Partial Thromboplastin Time 25.1 Seconds (22.3-36.8)
[2024-06-15 12:11] LABS: Alanine Aminotransferase 23 U/L (6-35); Albumin Level 3.7 g/dL (3.5-5.1); Alkaline Phosphatase 54 U/L (38-126); Anion Gap 7 mmol/L (4-12); Aspartate Amino Transferase 17 U/L (14-36); Bilirubin,Total 0.3 mg/dL (0.2-1.3); Blood Urea Nitrogen 19 mg/dL (7-17); Calcium 8.9 mg/dL (8.4-10.2); Carbon Dioxide 35 mmol/L (22-30); Chloride 99 mmol/L (98-107); Estimated Glomerular Filt Rate > 60; Glucose 308 mg/dL (65-110); Potassium 4.3 mmol/L (3.4-5.0); Sodium 141 mmol/L (137-145)
[2024-06-15 12:12] LABS: Lactic Acid Reflex 3.2 mmol/L (0.7-2.0)
[2024-06-15 12:22] LABS: NT Pro B Type Natriuretic Pept 205 pg/mL (19.9-100); Troponin I < 0.012 ng/mL (0.000-0.034)
--- NOTE | 2024-06-15 12:58 | ED.SOB ---
HPI - SOB/Dyspnea General Chief Complaint: Shortness of Breath/Dyspnea Stated Complaint: dyspnea Time Seen by Provider: 06/15/24 11:32 History of Present Illness HPI Narrative: Patient is a 74-year-old female who presents ER with increased shortness of breath. Patient with history of hypercapnic respiratory failure on recent admission. patient is awake alert orient tenderness midline. She is sleepy and requires a minor stimulation to wake up. She reports she has diffuse pain and is short of breath. She is morbidly obese with lower extremity edema. She is chronically O2 dependent. She has coarse rales bilaterally. Related Data Home Medications Medication Instructions Recorded Confirmed acetaminophen 500 mg tablet 1,000 mg PO Q6H PRN Pain 10/06/22 06/15/24 (Acetaminophen Extra Strength) cyanocobalamin (vitamin B-12) 500 500 mcg PO DAILY 10/06/22 06/15/24 mcg tablet (Vitamin B-12) duloxetine 60 mg capsule,delayed 60 mg PO Q12H 10/06/22 06/15/24 release ibuprofen 600 mg tablet 600 mg PO Q6H PRN Pain 10/06/22 06/15/24 magnesium hydroxide 400 mg/5 mL 30 ml PO DAILY PRN Constipation 10/06/22 06/15/24 oral suspension (Milk of Magnesia) polyethylene glycol 3350 17 gram 17 g PO DAILY 10/06/22 06/15/24 oral powder packet (Gavilax) pregabalin 75 mg capsule (Lyrica) 75 mg PO Q12H 10/06/22 06/15/24 sennosides 8.6 mg-docusate sodium 1 tab-cap PO BID 10/06/22 06/15/24 50 mg tablet tramadol 50 mg tablet 50 mg PO TID 10/06/22 06/15/24 diclofenac sodium 1 % topical gel 1 ea topical Q12H PRN Pain 04/30/23 06/15/24 cetirizine 10 mg tablet 10 mg PO HS 05/31/24 06/15/24 cholecalciferol (vitamin D3) 125 125 mcg PO DAILY 05/31/24 06/15/24 mcg (5,000 unit) capsule clonidine HCl 0.1 mg tablet 0.1 mg PO Q12H 05/31/24 06/15/24 gabapentin 600 mg tablet 600 mg PO Q12H 05/31/24 06/15/24 mirtazapine 7.5 mg tablet 7.5 mg PO HS 05/31/24 06/15/24 nystatin 100,000 unit/gram topical 1 applic topical PRN PRN Rash 05/31/24 06/15/24 powder nystatin 100,000 unit/mL oral 5 ml PO QID 05/31/24 06/15/24 suspension ramelteon 8 mg tablet 8 mg PO HS 05/31/24 06/15/24 fluticasone propionate 50 1 spray intranasal Q12HR 06/15/24 06/15/24 mcg/actuation nasal spray,suspension guanfacine 1 mg tablet,extended 1 mg PO BID 06/15/24 06/15/24 release 24 hr Allergies Allergy/AdvReac Type Severity Reaction Status Date / Time No Known Allergies Allergy Verified 05/31/24 10:29 Review of Systems Review of Systems: ROS unobtainable: Yes unobtainable due to medical condition [facility] [place] Past Medical History Medical History (Updated 06/15/24 @ 19:45 by Devin Malagon MD) Anxiety and depression Arthritis Asthma Atrial flutter by electrocardiogram Bronchitis Chronic constipation Chronic pain syndrome Dependence on wheelchair Foot-drop GERD (gastroesophageal reflux disease) History of traumatic brain injury Supraventricular tachycardia Surgical History Surgical History History of appendectomy Social History Social History Smoking status: Never smoker Tobacco type: cigarettes Second hand tobacco smoke exposure: No Alcohol intake: never Substance use: never Substance use type: does not use Lack of Transportation: No Lack of Food: Never True Current Housing: I Have Housing Concerned About Future Housing: No Difficulty Paying Gas/Electric Bills: No Difficulty Paying for Meds: No Currently Unemployed: No Education: Grade School Difficulty w/ Childcare or Family Care: No Spiritual care concerns: No Exam Narrative: GENERAL: Chronically ill-appearing, morbidly obese, mild distress HEAD: Normocephalic, atraumatic. ENT: Mucous membranes moist. NECK: Supple. CHEST: coarse expiratory wheezing and rales.. Mild respiratory distress. HEART: Regular rate and rhythm. Normal peripheral pulses. ABDOMEN: Soft, nontender, nondistended. EXTREMITIES: Normal range of motion. 2+ edema. SKIN: Warm, dry, no rash. NEURO: Alert and oriented x1. Course Course Emergency Course: patient suction by respiratory and then given a nebulizer treatment. She does not look particularly dry on exam and if anything may be a bit wet. White blood cell count is elevated. There was concern for aspiration pneumonia on her previous visit. She has been started on broad-spectrum antibiotics including clindamycin. Admit to the hospitalist service. Vital Signs Vital signs: Vital Signs Temperature 98.2 F 06/15/24 11:37 Pulse Rate 61 06/15/24 11:37 Respiratory Rate 21 H 06/15/24 11:37 Blood Pressure 109/44 L 06/15/24 11:37 Pulse Oximetry 96 06/15/24 11:37 Temperature 98.1 F 06/15/24 12:59 Pulse Rate 65 06/15/24 16:01 Respiratory Rate 16 06/15/24 16:01 Blood Pressure 104/56 L 06/15/24 16:01 Pulse Oximetry 97 06/15/24 16:42 Oxygen Delivery Nasal Cannula 06/15/24 16:42 Oxygen Flow Rate 3 06/15/24 16:42 MDM - SOB/Dyspnea Lab Data 06/15/24 11:50 06/15/24 11:50 Labs: Lab Results 06/15/24 06/15/24 06/15/24 Range/Units 11:49 11:50 11:55 WBC 13.0 H (4.5-10.0) K/mm3 RBC 4.20 (4.2-5.4) M/mm3 Hgb 13.4 (12.0-15.0) g/dL Hct 42.6 (37.0-47.0) % MCV 101.4 H (80-100) fl MCH 31.9 (26-34) pg MCHC 31.5 L (32-36) g/dl RDW 14.0 (11.5-14.5) % Plt Count 242 (150-375) k/mm3 MPV 10.6 H (7.4-10.4) fl Immature Gran % (Auto) 1.0 H (0-0.5) % Neut % (Auto) 85.3 H (45.5-73.1) % Lymph % (Auto) 9.5 L (18.3-44.2) % Bryan % (Auto) 3.5 (2.6-8.5) % Eos % (Auto) 0.4 (0-4.4) % Baso % (Auto) 0.3 (0.2-1.2) % Lymph # (Auto) 1.23 (0.9-3.2) K/mm3 Bryan # (Auto) 0.5 (0.1-0.6) K/mm3 Eos # (Auto) 0.1 (0-0.3) K/mm3 Baso # (Auto) 0.0 (0.0-0.1) K/mm3 Abs Immat Gran (auto) 0.13 H (0.00-0.031) K/mm3 Absolute Neuts (auto) 11.1 H (1.3-6.7) K/mm3 Absolute Nucleated RBC 0.000 (0.0-0.012) K/mm3 Nucleated RBC % 0.0 (0.0-0.2) % PT 12.8 (11.1-14.7) Seconds INR 0.9 APTT 25.1 (22.3-36.8) Seconds Methemoglobin 0.3 (0-1.5) %THb Sodium 141 (137-145) mmol/L Potassium 4.3 (3.4-5.0) mmol/L Chloride 99 (98-107) mmol/L Carbon Dioxide 35 H (22-30) mmol/L Anion Gap 7 (4-12) mmol/L BUN 19 H (7-17) mg/dL Creatinine 0.70 (0.7-1.0) mg/dL Estim Creat Clear Calc Not Reportable Estimated GFR > 60 (59 - ) Glucose 308 H (65-110) mg/dL Lactic Acid 3.2 H (0.7-2.0) mmol/L Calcium 8.9 (8.4-10.2) mg/dL Total Bilirubin 0.3 (0.2-1.3) mg/dL AST 17 (14-36) U/L ALT 23 (6-35) U/L Alkaline Phosphatase 54 (38-126) U/L Troponin I < 0.012 (0.000-0.034) ng/mL NT-Pro-B Natriuret Pep 205 H (19.9-100) pg/mL Total Protein 7.0 (6.3-8.2) g/dL Albumin 3.7 (3.5-5.1) g/dL ABG Data ABG results: 06/15/24 11:49 Puncture Site Left radial ABG pH 7.353 ABG pCO2 65.5 H* ABG pO2 66.1 L ABG PO2/FiO2 Ratio 2.07 ABG HCO3 35.6 H ABG O2 Saturation 91.6 L ABG O2 Content 18.0 ABG Base Excess 7.7 A-a Gradient 85.4 Oxyhemoglobin 93.2 Carboxyhemoglobin 0.7 Reduced Hemoglobin 5.8 H Total Hemoglobin 13.7 O2 Delivery Device Nasal cannula O2 Liters/Min 3.0 FiO2 32 Imaging Data Radiologist's impression: ITS Impressions Chest X-Ray 06/15/24 12:29 IMPRESSION: 1. Airspace opacities in the lower lung zones, consistent with atelectasis versus pneumonia. ECG Data EKG #1: ECG completion date: 06/15/24 ECG completion time: 11:44 EKG Interpretation: normal rate (60), sinus rhythm, non-specific ST changes, normal QRS, normal QT and left axis Discharge Plan Discharge Clinical Impression: Pneumonia Patient Disposition: Still a Patient Condition: Stable
[2024-06-15] MEDS: AZITHROMYCIN 500 MG/NS 250 ML 500 MG/250 ML BAG 250 MG IVPB (14:51)
[2024-06-15 14:58] LABS: Reflex Lactic Acid Yes or No Add Lactic
[2024-06-15 15:46] LABS: Lactic Acid 4.2 mmol/L (0.7-2.0)
--- NOTE | 2024-06-15 16:42 | ADMGEN ---
This patient, Shiela Calabrese, was admitted to Medical Room 251-. Patient/family oriented to hospital policies and general routines including ID bracelet, bed and alarms, visiting hours, pain management, procedures, bathroom and other care routines, personal items, smoking policy, room service/diet, and visiting hours. Information on how to activate the Rapid Response Team has been discussed. Patient/Family are encouraged to report perceived risks to care and to ask questions if they do not understand what they are told or what they should do.
--- NOTE | 2024-06-15 17:00 | PM.IMHP ---
H&P: HPI History of Present Illness Date/Time: 06/15/24 17:00 Chief Complaint: Shortness of Breath Narrative: 74 y/o F presents here with shortness of breath with PMH of anxiety/depression, atrial flutter, chronic pain syndrome, footdrop, GERD, TBI, SVT. The patient presents here from [facility] via EMS for further evaluation of shortness of breath. Per EMS report to ED, NH staff reported adventitious lung sounds this morning and noticeable respiratory distress. The patient reports chronic shortness of breath, reports it has been no worse than usual. Endorsing accompanying productive cough (intermittent), fever, chills, and body aches. Denies chest pain, palpitations, nausea, vomiting or diarrhea. Per chart review, the patient was recently admitted here from 05/31/2024 to 06/09/2024 for shortness of breath. Patient was diagnosed with rhino/enterovirus. Started on a pulmonary toileting and pulmonology was consulted, they recommended barium swallow due to concerns for possible aspiration. 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 She has not unable to undergo a barium swallow due to body habitus. Trialed on the mildly thickened liquids and minced/voiced. She screened negative for PERFECTO during this visit. Diuretic exchanged to spironolactone. Once patient was factor baseline O2 requirement she was discharged back to her facility with scheduled nebs, CPT vest therapy, and Mucinex. Initial VS at presentation: 98.2? F, HR 61, RR 21, 109/44, and 96% on 3L NC. ED workup showed: WBC 13.0, hemoglobin 13.4, normal coags, on ABG CO2 elevated, O2 reduce, and bicarb elevated, creatinine 0.7 and GFR >60, glucose 308, initial lactic 3.2, initial troponin negative, and BNP 205. Review of Systems Review of Systems: All systems reviewed & are unremarkable except as noted in HPI and below [facility] Past Medical History Medical History (Updated 06/15/24 @ 20:19 by Nancy Leon APRN) Acute and chronic respiratory failure with hypercapnia Anxiety and depression Arthritis Asthma Atrial flutter by electrocardiogram Bronchitis Chronic constipation Chronic pain syndrome Dependence on wheelchair Foot-drop GERD (gastroesophageal reflux disease) History of traumatic brain injury Supraventricular tachycardia Surgical History Surgical History History of appendectomy Social History Social History Smoking status: Never smoker Tobacco type: cigarettes Second hand tobacco smoke exposure: No Alcohol intake: never Substance use: never Substance use type: does not use Lack of Transportation: No Lack of Food: Never True Current Housing: I Have Housing Concerned About Future Housing: No Difficulty Paying Gas/Electric Bills: No Difficulty Paying for Meds: No Currently Unemployed: No Education: Grade School Difficulty w/ Childcare or Family Care: No Spiritual care concerns: No Meds Home Medications and Allergies Home Medications Medication Instructions Recorded Confirmed Type acetaminophen 500 mg tablet 1,000 mg PO Q6H PRN Pain 10/06/22 06/15/24 History (Acetaminophen Extra Strength) cyanocobalamin (vitamin B-12) 500 500 mcg PO DAILY 10/06/22 06/15/24 History mcg tablet (Vitamin B-12) duloxetine 60 mg capsule,delayed 60 mg PO Q12H 10/06/22 06/15/24 History release ibuprofen 600 mg tablet 600 mg PO Q6H PRN Pain 10/06/22 06/15/24 History magnesium hydroxide 400 mg/5 mL 30 ml PO DAILY PRN Constipation 10/06/22 06/15/24 History oral suspension (Milk of Magnesia) polyethylene glycol 3350 17 gram 17 g PO DAILY 10/06/22 06/15/24 History oral powder packet (Gavilax) pregabalin 75 mg capsule (Lyrica) 75 mg PO Q12H 10/06/22 06/15/24 History sennosides 8.6 mg-docusate sodium 1 tab-cap PO BID 10/06/22 06/15/24 History 50 mg tablet tramadol 50 mg tablet 50 mg PO TID 10/06/22 06/15/24 History diltiazem HCl 120 mg capsule,24 120 mg PO QAM #30 caps 10/13/22 06/15/24 Rx hr,extended release metoprolol succinate 25 mg 25 mg PO QAM #30 tabs 10/13/22 06/15/24 Rx tablet,extended release 24 hr (Toprol XL) pantoprazole 40 mg tablet,delayed 40 mg PO QAM #30 tabs 10/13/22 06/15/24 Rx release diclofenac sodium 1 % topical gel 1 ea topical Q12H PRN Pain 04/30/23 06/15/24 History cetirizine 10 mg tablet 10 mg PO HS 05/31/24 06/15/24 History cholecalciferol (vitamin D3) 125 125 mcg PO DAILY 05/31/24 06/15/24 History mcg (5,000 unit) capsule clonidine HCl 0.1 mg tablet 0.1 mg PO Q12H 05/31/24 06/15/24 History gabapentin 600 mg tablet 600 mg PO Q12H 05/31/24 06/15/24 History mirtazapine 7.5 mg tablet 7.5 mg PO HS 05/31/24 06/15/24 History nystatin 100,000 unit/gram topical 1 applic topical PRN PRN Rash 05/31/24 06/15/24 History powder nystatin 100,000 unit/mL oral 5 ml PO QID 05/31/24 06/15/24 History suspension ramelteon 8 mg tablet 8 mg PO HS 05/31/24 06/15/24 History budesonide 0.5 mg/2 mL suspension 0.5 mg (2 mL) inhalation Q12HRT 06/09/24 06/15/24 Rx for nebulization (Pulmicort) #60 mL guaifenesin 600 mg tablet, 1,200 mg PO Q12HR #30 tabs 06/09/24 06/15/24 Rx extended release 12 hr (Mucus Relief ER) ipratropium 0.5 mg-albuterol 3 mg 3 ml inhalation QID #180 mL 06/09/24 06/15/24 Rx (2.5 mg base)/3 mL nebulization soln prednisone 2.5 mg tablet 2.5 mg PO DAILY@0800 #7 tabs 06/09/24 06/15/24 Rx prednisone 2.5 mg tablet 7.5 mg PO DAILY@0800 #21 tabs 06/09/24 06/15/24 Rx prednisone 5 mg tablet 5 mg PO DAILY@0800 #7 tabs 06/09/24 06/15/24 Rx spironolactone 25 mg tablet 25 mg PO QAM #30 tabs 06/09/24 06/15/24 Rx fluticasone propionate 50 1 spray intranasal Q12HR 06/15/24 06/15/24 History mcg/actuation nasal spray,suspension guanfacine 1 mg tablet,extended 1 mg PO BID 06/15/24 06/15/24 History release 24 hr Allergies Allergy/AdvReac Type Severity Reaction Status Date / Time No Known Allergies Allergy Verified 05/31/24 10:29 Vital Signs Vital Signs - 24 hr 06/15/24 11:37 06/15/24 11:51 06/15/24 12:09 Temperature 98.2 F Pulse Rate 61 65 Respiratory Rate 21 H 18 Blood Pressure 109/44 L Pulse Oximetry 96 94 Oxygen Delivery Nasal Cannula Oxygen Flow Rate 3 06/15/24 12:16 06/15/24 12:59 06/15/24 14:39 Temperature 98.1 F Pulse Rate 62 71 63 Respiratory Rate 16 14 16 Blood Pressure 116/68 112/52 L Pulse Oximetry 95 100 Oxygen Delivery Oxygen Flow Rate 06/15/24 14:52 06/15/24 16:01 Temperature Pulse Rate 65 Respiratory Rate 16 Blood Pressure 104/56 L Pulse Oximetry 100 97 Oxygen Delivery Nasal Cannula Oxygen Flow Rate 3 Exam Const: General: comfortable and no acute distress Other: , female, obese body habitus, chronically ill-appearing HENMT: Face/Nose/Sinus: Normal nares present Mouth: Yes moist mucous membranes Eyes: General: appearance normal, both eyes and all related structures Sclera: sclerae normal Pupils: Equal, round and reactive pupils present EOM: EOMs intact bilaterally Resp: Effort & Inspection: normal respiratory effort Other: Diffuse rhonchi and coarse lung sounds, faint expiratory wheeze. Cardio: Rate: regular rate Rhythm: regular rhythm Other: S1-S2 present without murmur, rub, ectopy GI: Other: Abdomen soft but tight, nontender. Normoactive bowel sounds in all quadrants Skin: General skin exam: normal color and no rashes or lesions noted Wounds: no wounds Neuro: Speech: normal speech Sensory Exam: normal sensation Other: +generalized weakness. A&Ox1-2, able to give situational history and self. Provided incorrect year and place. Extrem: Other: 2+ pitting edema to bilateral ankles, symmetric. Psych: Mental Status: mental status grossly normal Affect: normal affect Other: Fair to poor insight and judgment, pleasant H&P: Results Labs Labs: Short CBC 06/15/24 Range/Units 11:50 WBC 13.0 H (4.5-10.0) K/mm3 Hgb 13.4 (12.0-15.0) g/dL Hct 42.6 (37.0-47.0) % Plt Count 242 (150-375) k/mm3 BMP 06/15/24 11:50 Sodium 141 Potassium 4.3 Chloride 99 Carbon Dioxide 35 H BUN 19 H Creatinine 0.70 Glucose 308 H Calcium 8.9 Cardiac Enzymes 06/15/24 Range/Units 11:50 Troponin I < 0.012 (0.000-0.034) ng/mL Liver Function 06/15/24 Range/Units 11:50 Total Bilirubin 0.3 (0.2-1.3) mg/dL AST 17 (14-36) U/L ALT 23 (6-35) U/L Alkaline Phosphatase 54 (38-126) U/L Albumin 3.7 (3.5-5.1) g/dL Assessment and Plan Assessment and plan (1) Acute and chronic respiratory failure with hypercapnia: Code(s): J96.22 - Acute and chronic respiratory failure with hypercapnia Status: Acute Assessment and Plan: - CXR: 1. Airspace opacities in the lower lung zones, consistent with atelectasis versus pneumonia. - pulmonology consulted, awaiting formal recs - nebs yaron - CPT therapy, Mucinex, minced/moist and mildly thickened liquid diet (concern for aspiration during previous admission) - pH 7.353, pCO2 65.5, pO2 66.1, HCO3 35.6, O2 sat 91.6% - bronchitis vs pneumonia vs phrenic nerve paralysis vs asthma exacerbation vs hypoventilation 2/2 obesity - consider nondiagnostic chest CT if no improvement with ABX (2) Lactic acidosis: Code(s): E87.20 - Acidosis, unspecified Status: Acute Assessment and Plan: - meets SIRS criteria: RR and WBC - lactic acid: 3.2-> 4.2 - lactic elevated, procalcitonin added - unable to give sepsis bolus due to volume overload, will start at 75 mL/hour. Will need strict I&Os. - suspected source: Pneumonia - started on ceftriaxone, azithromycin, clindamycin due to concern for aspiration - blood cultures drawn on 06/15 - UA added (3) Pneumonia: Qualifiers: Pneumonia type: aspiration pneumonia Aspiration pneumonia type: unspecified Laterality: unspecified laterality Lung location: unspecified part of lung Qualified Code(s): J69.0 - Pneumonitis due to inhalation of food and vomit Code(s): J18.9 - Pneumonia, unspecified organism Status: Acute Assessment and Plan: - risk factors and complicating factors: Recently treated for pneumonia, acute on chronic respiratory failure, hypoventilation, [place] resident - complicating factors: - started on ceftriaxone, azithromycin, and clindamycin due to concern for aspiration pneumonia - MRSA PCR negative on 05/31/2024 - currently requiring supplemental O2: 3L NC, baseline Plan Diet: Thickened liquids, minced and moist, heart healthy GI Prophylaxis: Not currently indicated DVT Prophylaxis: SCDs Lines: Peripheral Code Status: DNR Quality VTE Prophylaxis VTE prophylaxis: mechanical ordered Hospitalist MIPS Advance Care Plan I have confirmed that the patient's Advanced Care Plan is present, code status is documented, or surrogate decision maker is listed in patient medical record.: Yes Medication Reconciliation I have utilized all available resources to obtain, update and review the patients current medications (includes all prescriptions, OTC, herbals, cannabis, and nutritional supplements).: Yes
[2024-06-15] MEDS: CLINDAMYCIN 900 MG/D5W 50 ML 900 MG/50 ML PIGGYBACK 50 MG IVPB ×2 (17:11→23:40)
[2024-06-15] MEDS: HYDROcodone/acetaminophen (*CRX) 5-325 MG TABLET 1 TAB PO (20:06)
[2024-06-15 21:07] LABS: Add Urine Microscopic? YES; Appearance Urine Turbid (Clear); Bacteria Urine 1+ /hpf; Bilirubin Urine 1+ (Negative); Blood Urine 3+ (Negative); Calcium Oxalate Crystals Urine Present /hpf; Color Urine Dark Yellow (Yellow); Glucose Urine UA 2+ mg/dL (Negative); Ketones Urine Trace mg/dL (Negative); Leukocyte Esterase Ur Trace LEU/UL (Negative); Mucus Urine Present /lpf; Need Manual Microscopic Reviewed; Nitrate Urine Negative (Negative); Protein Urine 2+ mg/dL (Negative); RBC Urine >100 /hpf (0-2); Squamous Epithelial Cell Urine Moderate /hpf (Few); pH Urine 5.5 (5.0-9.0)
[2024-06-15] MEDS: SODIUM CHLORIDE 0.9% IV 1,000 ML 75 ML IV CONT (21:16)
[2024-06-15] MEDS: guaiFENesin 600 MG/DEXTROMETHORPHAN 30 MG SR TAB 12 HR 1 TAB PO (21:19)
[2024-06-15] MEDS: DULoxetine HCL 60 MG CAPSULE.DR PO (21:19)
[2024-06-15] MEDS: traMADol HCL (*CRX) 50 MG TABLET PO (21:19)
[2024-06-15] MEDS: MIRTAZAPINE 7.5 MG TABLET PO (21:19)
[2024-06-15] MEDS: cloNIDine HCL 0.1 MG TABLET PO (21:19)
[2024-06-15] MEDS: GABAPENTIN 300 MG CAPSULE 600 MG PO (21:19)
[2024-06-15] MEDS: LORATADINE 10 MG TABLET PO (21:19)
[2024-06-15] MEDS: PREGABALIN (*CRX) 75 MG CAPSULE PO (21:19)
[2024-06-15] MEDS: FLUTICASONE PROPIONATE 0.05% NA SPR 16 GM BTL (*BKC) 1 SPRAY NASAL (21:19)
[2024-06-15] MEDS: TOLNAFTATE 1% POWDER 45 GM BTL 1 APPLIC TOPICAL (21:22)
[2024-06-15] MEDS: NYSTATIN 100,000 UNITS/ML SUSP 5 ML ORAL.SUSP PO (21:22)
[2024-06-16] VITALS (16 sets, daily range): BP systolic 99–128; BP diastolic 56–72; PULSE 57–68; RESP 12–20; TEMP 36.5; O2SAT 95–99; BMI 42.8
[2024-06-16] MEDS: IPRATROPIUM 0.5 MG/ALBUTEROL SULFATE 2.5 MG AMPUL.NEB 3 ML INHALATION ×4 (02:28→21:09)
[2024-06-16] MEDS: traMADol HCL (*CRX) 50 MG TABLET PO ×2 (05:42→22:00)
[2024-06-16 06:26] LABS: Basophils Absolute Auto 0.1 K/mm3 (0.0-0.1); Basophils Percent Auto 0.6 % (0.2-1.2); Eosinophils Absolute Auto 0.1 K/mm3 (0-0.3); Eosinophils Percent Auto 0.9 % (0-4.4); Hematocrit 39.2 % (37.0-47.0); Hemoglobin 11.8 g/dL (12.0-15.0); Immature Granulocyte Absolute 0.09 K/mm3 (0.00-0.031); Lymphocytes Absolute Auto 2.72 K/mm3 (0.9-3.2); Lymphocytes Percent Auto 29.3 % (18.3-44.2); Mean Corpuscular HGB Conc 30.1 g/dl (32-36); Mean Corpuscular Hemoglobin 31.1 pg (26-34); Mean Corpuscular Volume 103.2 fl (80-100); Mean Platelet Volume 10.7 fl (7.4-10.4); Monocytes Absolute Auto 0.6 K/mm3 (0.1-0.6); Monocytes Percent Auto 6.5 % (2.6-8.5); Neutrophils Absolute Auto 5.7 K/mm3 (1.3-6.7); Neutrophils Percent Auto 61.7 % (45.5-73.1); Platelet Count Result 212 k/mm3 (150-375); Red Cell Distribution Width 14.1 % (11.5-14.5); White Blood Count 9.3 K/mm3 (4.5-10.0)
[2024-06-16 06:46] LABS: Alanine Aminotransferase 19 U/L (6-35); Albumin Level 3.4 g/dL (3.5-5.1); Alkaline Phosphatase 52 U/L (38-126); Anion Gap 6 mmol/L (4-12); Aspartate Amino Transferase 17 U/L (14-36); Bilirubin,Total 0.3 mg/dL (0.2-1.3); Blood Urea Nitrogen 18 mg/dL (7-17); Calcium 8.6 mg/dL (8.4-10.2); Carbon Dioxide 31 mmol/L (22-30); Chloride 102 mmol/L (98-107); Estimated CRCL calculation 97 ml/min; Estimated Glomerular Filt Rate > 60; Glucose 153 mg/dL (65-110); Magnesium 2.3 mg/dL (1.6-2.3); Phosphorus 3.5 mg/dL (2.5-4.5); Potassium 4.1 mmol/L (3.4-5.0); Sodium 139 mmol/L (137-145)
[2024-06-16] MEDS: BUDESONIDE RESPULE NEB 0.5 MG/2 ML AMP INHALATION ×2 (07:14→21:09)
[2024-06-16] MEDS: CLINDAMYCIN 900 MG/D5W 50 ML 900 MG/50 ML PIGGYBACK 50 MG IVPB ×2 (08:25→17:03)
[2024-06-16 10:24] LABS: Alveolar/Arterial O2 Gradient 69.2 mmHg; Base Excess ABG 4.7 mEq/l (+/-2.0); Fractional Inspired Oxygen 32 %; HCO3 ABG 31.9 mEq/l (22.0-26.0); Oxygen Content ABG 17.1 %vol (16.0-22.0); Oxygen Saturation ABG 96.2 % (95.0-100.0); Oxyhemoglobin 96.2 % THb (90.0-100.0); PCO2 ABG 59.3 mmHg (35.0-45.0); PO2 ABG 89.6 mmHg (80.0-100.0); Total Hemoglobin 12.6 g/dL (12.0-18.0); pH ABG 7.348 (7.350-7.450)
[2024-06-16 10:39] LABS: Device NASAL CANNULA; Modified Allen's Test Pass; Site Drawn RIGHT RADIAL
[2024-06-16] MEDS: predniSONE 2.5 MG TABLET 7.5 MG PO (11:36)
[2024-06-16] MEDS: CYANOCOBALAMIN 500 MCG TABLET PO (11:37)
[2024-06-16] MEDS: cloNIDine HCL 0.1 MG TABLET PO ×2 (11:37→20:12)
[2024-06-16] MEDS: CHOLECALCIFEROL 5,000 UNITS TABLET 5000 UNITS BY MOUTH (11:37)
[2024-06-16] MEDS: dilTIAZem HCL CD 120 MG CAP.24HR PO (11:38)
[2024-06-16] MEDS: SENNA/DOCUSATE SODIUM TABLET 1 TAB PO ×2 (11:38→17:04)
[2024-06-16] MEDS: GABAPENTIN 300 MG CAPSULE 600 MG PO ×2 (11:40→20:12)
[2024-06-16] MEDS: PANTOPRAZOLE 40 MG TABLET PO (11:41)
[2024-06-16] MEDS: METOPROLOL SUCCINATE EXT REL 25 MG TABCR PO (11:41)
[2024-06-16] MEDS: PREGABALIN (*CRX) 75 MG CAPSULE PO ×2 (11:41→20:12)
[2024-06-16] MEDS: guaiFENesin 600 MG/DEXTROMETHORPHAN 30 MG SR TAB 12 HR 1 TAB PO ×2 (11:41→20:12)
[2024-06-16] MEDS: SPIRONOLACTONE 25 MG TABLET PO (11:41)
[2024-06-16] MEDS: FLUTICASONE PROPIONATE 0.05% NA SPR 16 GM BTL (*BKC) 1 SPRAY NASAL ×2 (11:42→20:13)
[2024-06-16] MEDS: DULoxetine HCL 60 MG CAPSULE.DR PO ×2 (11:42→20:12)
--- NOTE | 2024-06-16 11:50 | P.PNIM_ITS ---
Progress Note: A&P Assessment and Plan (1) Acute and chronic respiratory failure with hypercapnia: Code(s): J96.22 - Acute and chronic respiratory failure with hypercapnia Status: Acute Assessment and Plan: Patient presents with SOB. CXR showing airspace opacities in the lower lung zones, consistent with atelectasis versus pneumonia. - pulmonology consulted, awaiting formal recs - nebs yaron - CPT therapy, Mucinex, minced/moist and mildly thickened liquid diet (concern for aspiration during previous admission) - ABG - 7.35/65.5/66 on 3L. Repeat ABG today 7.35/59/90 on 3L. - bronchitis vs pneumonia vs phrenic nerve paralysis vs asthma exacerbation vs hypoventilation 2/2 obesity Continue current abx, bronchodilators. Speech therapy to see. Consider nondiagnostic chest CT if no improvement with ABX (2) Pneumonia: Qualifiers: Aspiration pneumonia type: unspecified Laterality: unspecified laterality Lung location: unspecified part of lung Pneumonia type: aspiration pneumonia Qualified Code(s): J69.0 - Pneumonitis due to inhalation of food and vomit Code(s): J18.9 - Pneumonia, unspecified organism Status: Acute Assessment and Plan: CXR as above. - risk factors and complicating factors: Recently treated for pneumonia, dysphagia, acute on chronic respiratory failure, hypoventilation, MD resident - started on ceftriaxone, azithromycin, and clindamycin due to concern for aspiration pneumonia - MRSA PCR negative on 05/31/2024 Wean O2 as tolerated. Continue IV abx. Repeat MRSA swab. (3) Sepsis: Code(s): A41.9 - Sepsis, unspecified organism Status: Acute Assessment and Plan: - meets criteria for sepsis with RR, lactic acidosis and WBC - lactic acid: 3.2-> 4.2 - procalcitonin 0. WBC 13K -> normal - unable to give sepsis bolus due to volume overload, will start at 75 mL/hour. Will need strict I&Os. - suspected source: Pneumonia - started on ceftriaxone, azithromycin, clindamycin due to concern for aspiration - blood cultures drawn on 06/15 - pending - UA noted. Follow up on UCx. Contineu IV abx. (4) Lactic acidosis: Code(s): E87.20 - Acidosis, unspecified Status: Acute Assessment and Plan: As above (5) Neck pain: Code(s): M54.2 - Cervicalgia Status: Acute Assessment and Plan: Patient complains of sore throat and neck pain. Consider strept or parotiditis. Check strept screen. Check CT neck. Add CT brain given concern for mental status change Plan DVT Prophylaxis: SCDs Code Status: DNR Subjective Date/time seen: 06/16/24 11:50 Interval history: 74yo female with anxiety/depression, atrial flutter, chronic pain syndrome, footdrop, GERD, TBI, and SVT here for shortness of breath. She is alert but confused. She complains of neck pain and sore throat. Called to see patient for somnolence but patient was awake at the time of my assessment. Review of Systems Review of Systems: ROS unobtainable: Yes unobtainable due to mental status Exam Narrative: AF 97.7 116/61 60 12 99% Gen - NARD HEENT - ncat. dry mm. OP not visualized. Neck - supple. tenderness anteriorly with prominent left parotid Chest - coarse breath sounds. CV - RRR S1/S2 Abd - Soft, obese, NT, +BS Ext - 1+ pedal edema Neuro - Alert but confused. able to move left toes but o/w strength 1/5 bilateral LE. 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 Psych - Nml mood and affect Skin - Warm and dry Objective Data Vital Signs Vital Signs: Vital Signs - 24 hr 06/15/24 11:51 06/15/24 12:09 06/15/24 12:16 Temperature Pulse Rate 65 62 Respiratory Rate 18 16 Blood Pressure Pulse Oximetry 94 Oxygen Delivery Nasal Cannula Oxygen Flow Rate 3 06/15/24 12:59 06/15/24 14:39 06/15/24 14:52 Temperature 98.1 F Pulse Rate 71 63 Respiratory Rate 14 16 Blood Pressure 116/68 112/52 L Pulse Oximetry 95 100 100 Oxygen Delivery Nasal Cannula Oxygen Flow Rate 3 06/15/24 16:01 06/15/24 16:42 06/15/24 20:00 Temperature Pulse Rate 65 Respiratory Rate 16 Blood Pressure 104/56 L Pulse Oximetry 97 97 97 Oxygen Delivery Nasal Cannula Nasal Cannula Oxygen Flow Rate 3 3 06/15/24 20:36 06/15/24 21:29 06/15/24 21:37 Temperature 97.7 F Pulse Rate 61 66 66 Respiratory Rate 18 18 Blood Pressure 112/59 L Pulse Oximetry 99 94 Oxygen Delivery Nasal Cannula Oxygen Flow Rate 2 06/15/24 21:38 06/16/24 02:28 06/16/24 02:37 Temperature Pulse Rate 68 62 66 Respiratory Rate 18 18 Blood Pressure Pulse Oximetry Oxygen Delivery Oxygen Flow Rate 06/16/24 03:03 06/16/24 07:10 06/16/24 07:10 Temperature 97.7 F Pulse Rate 57 L 62 62 Respiratory Rate 20 18 18 Blood Pressure 99/56 L Pulse Oximetry 98 97 Oxygen Delivery Nasal Cannula Oxygen Flow Rate 3 06/16/24 07:20 06/16/24 08:24 06/16/24 07:50 Temperature Pulse Rate 67 58 L Respiratory Rate 20 12 Blood Pressure 116/61 Pulse Oximetry 99 99 Oxygen Delivery Nasal Cannula Oxygen Flow Rate 3 06/16/24 11:41 Temperature Pulse Rate 60 Respiratory Rate Blood Pressure Pulse Oximetry Oxygen Delivery Oxygen Flow Rate Intake/Output Intake/Output: Intake & Output 06/13/24 06/14/24 06/15/24 06/16/24 23:59 23:59 23:59 23:59 Intake Total 50 50 Output Total 100 100 Balance -50 -50 Meds/Results Medications: Active Medications Generic Name Dose Route Start Last Admin Trade Name Freq PRN Reason Stop Dose Admin Acetaminophen 650 mg 06/15/24 14:43 Acetaminophen 325 Mg Tablet PO Q4H PRN Mild Pain (1-3) or Fever Hydrocodone Bitart/Acetaminophen 1 tab 06/15/24 14:43 06/15/24 20:06 Hydrocodone/Acetaminophen (*Crx) 5-325 Mg Tablet PO 1 tab Q4H PRN Administration Pain Rated 4-6 Albuterol/Ipratropium 3 ml 06/15/24 20:00 06/16/24 07:14 Ipratropium 0.5 Mg/Albuterol Sulfate 2.5 Mg Ampul.Neb 3 Ml INHALATION 3 ml Q6HRT YARON Administration Budesonide 0.5 mg 06/16/24 08:00 06/16/24 07:14 Budesonide Respule Neb 0.5 Mg/2 Ml Amp INHALATION 0.5 mg Q12HRT YARON Administration Clonidine HCl 0.1 mg 06/15/24 21:00 06/16/24 11:37 Clonidine Hcl 0.1 Mg Tablet PO 0.1 mg Q12HR YARON Administration Cyanocobalamin 500 mcg 06/16/24 09:00 06/16/24 11:37 Cyanocobalamin 500 Mcg Tablet PO 500 mcg DAILY YARON Administration Diclofenac Sodium 1 applic 06/15/24 20:19 Diclofenac Sodium 1% 100 Gm Gel (*Bkc) TOPICAL Q12H PRN Pain Diltiazem HCl 120 mg 06/16/24 09:00 06/16/24 11:38 Diltiazem Hcl Cd 120 Mg Cap.24hr PO 120 mg QAM YARON Administration Duloxetine HCl 60 mg 06/15/24 21:00 06/16/24 11:42 Duloxetine Hcl 60 Mg Capsule.Dr PO 60 mg Q12HR YARON Administration Fluticasone Propionate 1 spray 06/15/24 21:00 06/16/24 11:42 Fluticasone Propionate 0.05% Na Spr 16 Gm Btl (*Bkc) NASAL 1 spray Q12HR YARON Administration Gabapentin 600 mg 06/15/24 21:00 06/16/24 11:40 Gabapentin 300 Mg Capsule PO 600 mg Q12HR YARON Administration Guaifenesin/Dextromethorphan 1 tab 06/15/24 21:00 06/16/24 11:41 Guaifenesin 600 Mg/Dextromethorphan 30 Mg Sr Tab 12 Hr PO 1 tab Q12HR YARON Administration Ceftriaxone Sodium 1 gm in 50 mls @ 100 mls/hr 06/16/24 12:00 Rocephin 1 Gm/Ns 50 Ml IVPB Q24H YARON Azithromycin 500 mg in 250 mls @ 250 mls/hr 06/16/24 12:00 Zithromax IVPB Q24H YARON Clindamycin Phosphate 900 mg in 50 mls @ 50 mls/hr 06/16/24 00:00 06/16/24 08:25 Cleocin 900 Mg/D5w 50 Ml IVPB 50 mls/hr Q8H YARON Administration Loratadine 10 mg 06/15/24 21:00 06/15/24 21:19 Loratadine 10 Mg Tablet PO 10 mg HS YARON Administration Magnesium Hydroxide 30 ml 06/15/24 20:19 Magnesium Hydroxide Susp 30 Ml Udc PO DAILY PRN Constipation Metoprolol Succinate 25 mg 06/16/24 09:00 06/16/24 11:41 Metoprolol Succinate Ext Rel 25 Mg Tabcr PO 25 mg QAM YARON Administration Miconazole Nitrate 1 applic 06/16/24 11:00 Miconazole 2% Antifungal Ointment 56 Gm TOPICAL Q12HR [facility] Mirtazapine 7.5 mg 06/15/24 21:00 06/15/24 21:19 Mirtazapine 7.5 Mg Tablet PO 7.5 mg HS YARON Administration Miscellaneous Information 1 each 06/15/24 00:01 Ramelteon 8 Mg Tablet Is Nonformulary, Can Patient Bring From Home? XX 07/15/24 00:00 CLARIFY [facility] Non-Formulary Medication 8 mg 06/15/24 21:00 Ramelteon PO 07/15/24 20:59 HS [facility] Nystatin 5 ml 06/15/24 21:00 06/16/24 11:26 Nystatin 100,000 Units/Ml Susp 5 Ml Oral.Susp PO Not Given QID [facility] Pantoprazole Sodium 40 mg 06/16/24 09:00 06/16/24 11:41 Pantoprazole 40 Mg Tablet PO 40 mg QAM [facility] Administration Polyethylene Glycol 17 gm 06/16/24 09:00 06/16/24 11:45 Polyethylene Glycol 3350 17 Gm Powd.Pack PO Not Given DAILY [facility] Prednisone 5 mg 06/18/24 08:00 Prednisone 5 Mg Tablet PO 06/24/24 08:01 DAILY@0800 [facility] Prednisone 7.5 mg 06/16/24 08:00 06/16/24 11:36 Prednisone 2.5 Mg Tablet PO 06/17/24 08:01 7.5 mg DAILY@0800 [facility] Administration Prednisone 2.5 mg 06/25/24 08:00 Prednisone 2.5 Mg Tablet PO 07/01/24 08:01 DAILY@0800 [facility] Pregabalin 75 mg 06/15/24 21:00 06/16/24 11:41 Pregabalin (*Crx) 75 Mg Capsule PO 75 mg Q12HR [facility] Administration Promethazine HCl 12.5 mg 06/15/24 14:43 Promethazine Hcl 25 Mg/Ml Ampul IV PUSH Q6H PRN Nausea Senna/Docusate Sodium 1 tab 06/16/24 09:00 06/16/24 11:38 Senna/Docusate Sodium Tablet PO 1 tab BID YARON Administration Spironolactone 25 mg 06/16/24 09:00 06/16/24 11:41 Spironolactone 25 Mg Tablet PO 25 mg QAM YARON Administration Tolnaftate 1 applic 06/15/24 21:00 06/15/24 21:22 Tolnaftate 1% Powder 45 Gm Btl TOPICAL 1 applic Q12HR YARON Administration Tramadol HCl 50 mg 06/15/24 22:00 06/16/24 05:42 Tramadol Hcl (*Crx) 50 Mg Tablet PO 50 mg Q8HR YARON Administration Vitamin D 5,000 units 06/16/24 09:00 06/16/24 11:37 Cholecalciferol 5,000 Units Tablet BY MOUTH 5,000 units DAILY YARON Administration Radiology Results: ITS Impressions Chest X-Ray 06/15/24 12:29 IMPRESSION: 1. Airspace opacities in the lower lung zones, consistent with atelectasis versus pneumonia. Labs Labs: Laboratory Results - last 24 hr 06/15/24 06/15/24 06/15/24 11:49 11:50 11:55 WBC 13.0 H RBC 4.20 Hgb 13.4 Hct 42.6 MCV 101.4 H MCH 31.9 MCHC 31.5 L RDW 14.0 Plt Count 242 MPV 10.6 H Immature Gran % (Auto) 1.0 H Neut % (Auto) 85.3 H Lymph % (Auto) 9.5 L [place] % (Auto) 3.5 Eos % (Auto) 0.4 Baso % (Auto) 0.3 Lymph # (Auto) 1.23 [place] # (Auto) 0.5 Eos # (Auto) 0.1 Baso # (Auto) 0.0 Abs Immat Gran (auto) 0.13 H Absolute Neuts (auto) 11.1 H Absolute Nucleated RBC 0.000 Nucleated RBC % 0.0 PT 12.8 INR 0.9 APTT 25.1 Puncture Site Left radial ABG pH 7.353 ABG pCO2 65.5 H* ABG pO2 66.1 L ABG PO2/FiO2 Ratio 2.07 ABG HCO3 35.6 H ABG O2 Saturation 91.6 L ABG O2 Content 18.0 ABG Base Excess 7.7 A-a Gradient 85.4 Oxyhemoglobin 93.2 Carboxyhemoglobin 0.7 Methemoglobin 0.3 Reduced Hemoglobin 5.8 H Total Hemoglobin 13.7 O2 Delivery Device Nasal cannula O2 Liters/Min 3.0 FiO2 32 Sodium 141 Potassium 4.3 Chloride 99 Carbon Dioxide 35 H Anion Gap 7 BUN 19 H Creatinine 0.70 Estim Creat Clear Calc Not Reportable Estimated GFR > 60 Glucose 308 H Lactic Acid 3.2 H Calcium 8.9 Phosphorus Magnesium Total Bilirubin 0.3 AST 17 ALT 23 Alkaline Phosphatase 54 Troponin I < 0.012 NT-Pro-B Natriuret Pep 205 H Total Protein 7.0 Albumin 3.7 Procalcitonin 0.0 Urine Color Urine Appearance Urine pH Ur Specific [place] Urine Protein Urine Glucose (UA) Urine Ketones Ur Blood (Man) Urine Nitrate Urine Bilirubin Urine Urobilinogen Add Ur Microanalysis Leukocyte Esterase Rfl Urine RBC Urine WBC Ur Squamous Epith Cells Calcium Oxalate Crystal Urine Bacteria Urine Casts Urine Mucus 06/15/24 06/15/24 06/16/24 15:26 20:48 05:58 WBC 9.3 RBC 3.80 L Hgb 11.8 L Hct 39.2 MCV 103.2 H MCH 31.1 MCHC 30.1 L RDW 14.1 Plt Count 212 MPV 10.7 H Immature Gran % (Auto) 1.0 H Neut % (Auto) 61.7 Lymph % (Auto) 29.3 [place] % (Auto) 6.5 Eos % (Auto) 0.9 Baso % (Auto) 0.6 Lymph # (Auto) 2.72 [place] # (Auto) 0.6 Eos # (Auto) 0.1 Baso # (Auto) 0.1 Abs Immat Gran (auto) 0.09 H Absolute Neuts (auto) 5.7 Absolute Nucleated RBC 0.000 Nucleated RBC % 0.0 PT INR APTT Puncture Site ABG pH ABG pCO2 ABG pO2 ABG PO2/FiO2 Ratio ABG HCO3 ABG O2 Saturation ABG O2 Content ABG Base Excess A-a Gradient Oxyhemoglobin Carboxyhemoglobin Methemoglobin Reduced Hemoglobin Total Hemoglobin O2 Delivery Device O2 Liters/Min FiO2 Sodium 139 Potassium 4.1 Chloride 102 Carbon Dioxide 31 H Anion Gap 6 BUN 18 H Creatinine 0.50 L Estim Creat Clear Calc 97 Estimated GFR > 60 Glucose 153 H Lactic Acid 4.2 H* Calcium 8.6 Phosphorus 3.5 Magnesium 2.3 Total Bilirubin 0.3 AST 17 ALT 19 Alkaline Phosphatase 52 Troponin I NT-Pro-B Natriuret Pep Total Protein 6.0 L Albumin 3.4 L Procalcitonin Urine Color Dark yellow Urine Appearance Turbid H Urine pH 5.5 Ur Specific [place] 1.040 H Urine Protein 2+ H Urine Glucose (UA) 2+ H Urine Ketones Trace H Ur Blood (Man) 3+ H Urine Nitrate Negative Urine Bilirubin 1+ H Urine Urobilinogen 1.0 Add Ur Microanalysis Reviewed Leukocyte Esterase Rfl Trace H Urine RBC >100 H Urine WBC 11-20 H Ur Squamous Epith Cells Moderate Calcium Oxalate Crystal Present Urine Bacteria 1+ H Urine Casts 3-5 Urine Mucus Present 06/16/24 10:00 WBC RBC Hgb Hct MCV MCH MCHC RDW Plt Count MPV Immature Gran % (Auto) Neut % (Auto) Lymph % (Auto) [place] % (Auto) Eos % (Auto) Baso % (Auto) Lymph # (Auto) [place] # (Auto) Eos # (Auto) Baso # (Auto) Abs Immat Gran (auto) Absolute Neuts (auto) Absolute Nucleated RBC Nucleated RBC % PT INR APTT Puncture Site Right radial ABG pH 7.348 L ABG pCO2 59.3 H ABG pO2 89.6 ABG PO2/FiO2 Ratio 2.80 ABG HCO3 31.9 H ABG O2 Saturation 96.2 ABG O2 Content 17.1 ABG Base Excess 4.7 A-a Gradient 69.2 Oxyhemoglobin 96.2 Carboxyhemoglobin Methemoglobin Reduced Hemoglobin Total Hemoglobin 12.6 O2 Delivery Device Nasal cannula O2 Liters/Min 3.0 FiO2 32 Sodium Potassium Chloride Carbon Dioxide Anion Gap BUN Creatinine Estim Creat Clear Calc Estimated GFR Glucose Lactic Acid Calcium Phosphorus Magnesium Total Bilirubin AST ALT Alkaline Phosphatase Troponin I NT-Pro-B Natriuret Pep Total Protein Albumin Procalcitonin Urine Color Urine Appearance Urine pH Ur Specific [place] Urine Protein Urine Glucose (UA) Urine Ketones Ur Blood (Man) Urine Nitrate Urine Bilirubin Urine Urobilinogen Add Ur Microanalysis Leukocyte Esterase Rfl Urine RBC Urine WBC Ur Squamous Epith Cells Calcium Oxalate Crystal Urine Bacteria Urine Casts Urine Mucus
[2024-06-16 13:23] LABS: Strep Group A RT-PCR NOT DETECTED (Negative)
[2024-06-16] MEDS: AZITHROMYCIN 500 MG/NS 250 ML 500 MG/250 ML BAG 250 MG IVPB (13:39)
[2024-06-16] MEDS: NYSTATIN 100,000 UNITS/ML SUSP 5 ML ORAL.SUSP PO ×3 (13:40→20:13)
[2024-06-16] MEDS: TOLNAFTATE 1% POWDER 45 GM BTL 1 APPLIC TOPICAL ×2 (13:40→21:58)
--- NOTE | 2024-06-16 13:55 | PM.CNPUL ---
Assessment and Plan Assessment and plan (1) Acute and chronic respiratory failure with hypercapnia: Code(s): J96.22 - Acute and chronic respiratory failure with hypercapnia Status: Acute Assessment and Plan: This 74-year-old female has a severe cognitive disability, minimal ability to communicate, and inability to provide any history regarding her presenting symptoms. As during her recent hospitalization, she again presented with shortness of breath, worsening hypercapnic respiratory failure, elevated lactic acid levels, and evidence of unchanged chest X-ray with chronic right lower lobe partial atelectasis and an elevated right hemidiaphragm, mild leukocytosis, and wheezing in the upper chest observed during my exam earlier today. The radiographic studies do not support a diagnosis of severe health care-associated pneumonia. Elevated lactic acid could be related to wheezing and increased load on respiratory muscles. The patient seems to be responding to treatment with nebulized short-acting bronchodilators, antibiotics, and vest treatment. She is still on a tapering prednisone regimen. The patient appears to have weak respiratory muscles, which, in conjunction with her cognitive function, promote bronchial secretion retention with frequent respiratory infections. The diagnosis of asthma is questionable, but this needs to be kept in mind now that the patient is on a tapering steroid regimen. She has a chronically elevated right hemidiaphragm, which may also contribute to bronchial secretion retention and hypoxemia at night. The patient cannot perform pulmonary function testing. During her last hospitalization, a video swallow study was also problematic as the patient could not perform it. This patient presents quite a few challenges in terms of keeping her out of the hospital. Plan: Continue with the current regimen of antibiotics, nebulized short-acting bronchodilators, tapering prednisone regimen, and vest therapy. Will continue to monitor the patient's respiratory status for inability to clear bronchial secretions, for which we may consider therapeutic bronchoscopy. Will need to carefully assess the patient for bronchial secretion retention, which may be the reason for the frequent hospitalizations, and treatment of which may require an invasive procedure like a tracheostomy. Will continue to follow the patient along with you. (2) Metabolic alkalosis: Code(s): E87.3 - Alkalosis Status: Acute (3) Asthma: Code(s): J45.909 - Unspecified asthma, uncomplicated Status: Acute (4) Bronchitis: Code(s): J40 - Bronchitis, not specified as acute or chronic Status: Acute History of Present Illness History of Present Illness Consult date: 06/16/24 Chief complaint: Pneumonia Narrative: This 74-year-old female presented with a 1-day history of increasing shortness of breath. The patient is well known to Pulmonary Services from a recent hospitalization for similar complaints. 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 The patient also carries a diagnosis of asthma and had been chronically on steroids until 2 weeks ago when she was placed on a prednisone taper regimen. The patient has been chronically on supplemental oxygen at 3 liters/minute. She again was not able to provide any details about her illness. Upon questioning, she would answer monotocously that she does not feel well and has shortness of breath. On admission, a chest X-ray showed some chronic changes in her lower lobe on the right, likely related to atelectasis. She had mild leukocytosis. She had worsening hypercapnia on admission with arterial blood gases showing a pH of 7.35 and pCO2 of 65.5 compared to a previous ABG that showed a pH of 7.44 and pCO2 of 54.1. Lactic acid level was mildly elevated. The patient improved with antibiotics, nebulized short-acting bronchodilators, and vest treatments. The patient has obesity, but her most recent ApneaLink study showed adequate oxyhemoglobin saturation with just 3 liters/minute supplemental oxygen, making severe sleep disordered breathing unlikely. Arterial blood gases during the last hospitalization were also consistent with mostly metabolic alkalosis. Regarding the history of asthma, the patient could not provide any more information. No pulmonary function testing is available. Chest CT shows a chronically elevated right hemidiaphragm, which could be responsible for hypoxemia at night. Review of Systems Review of Systems: ROS unobtainable: Yes unobtainable due to medical condition PMFSH Past Medical History Medical History (Updated 06/16/24 @ 12:02 by Aaron Dutta MD) Acute and chronic respiratory failure with hypercapnia Anxiety and depression Arthritis Asthma Atrial flutter by electrocardiogram Bronchitis Chronic constipation Chronic pain syndrome Dependence on wheelchair Foot-drop GERD (gastroesophageal reflux disease) History of traumatic brain injury Supraventricular tachycardia Surgical History Surgical History History of appendectomy Social History Social History Smoking status: Never smoker Tobacco type: cigarettes Second hand tobacco smoke exposure: No Alcohol intake: never Substance use: never Substance use type: does not use Lack of Transportation: No Lack of Food: Never True Current Housing: I Have Housing Concerned About Future Housing: No Difficulty Paying Gas/Electric Bills: No Difficulty Paying for Meds: No Currently Unemployed: No Education: Grade School Difficulty w/ Childcare or Family Care: No Spiritual care concerns: No Meds Home Medications and Allergies Home Medications Medication Instructions Recorded Confirmed Type acetaminophen 500 mg tablet 1,000 mg PO Q6H PRN Pain 10/06/22 06/15/24 History (Acetaminophen Extra Strength) cyanocobalamin (vitamin B-12) 500 500 mcg PO DAILY 10/06/22 06/15/24 History mcg tablet (Vitamin B-12) duloxetine 60 mg capsule,delayed 60 mg PO Q12H 10/06/22 06/15/24 History release ibuprofen 600 mg tablet 600 mg PO Q6H PRN Pain 10/06/22 06/15/24 History magnesium hydroxide 400 mg/5 mL 30 ml PO DAILY PRN Constipation 10/06/22 06/15/24 History oral suspension (Milk of Magnesia) polyethylene glycol 3350 17 gram 17 g PO DAILY 10/06/22 06/15/24 History oral powder packet (Gavilax) pregabalin 75 mg capsule (Lyrica) 75 mg PO Q12H 10/06/22 06/15/24 History sennosides 8.6 mg-docusate sodium 1 tab-cap PO BID 10/06/22 06/15/24 History 50 mg tablet tramadol 50 mg tablet 50 mg PO TID 10/06/22 06/15/24 History diltiazem HCl 120 mg capsule,24 120 mg PO QAM #30 caps 10/13/22 06/15/24 Rx hr,extended release metoprolol succinate 25 mg 25 mg PO QAM #30 tabs 10/13/22 06/15/24 Rx tablet,extended release 24 hr (Toprol XL) pantoprazole 40 mg tablet,delayed 40 mg PO QAM #30 tabs 10/13/22 06/15/24 Rx release diclofenac sodium 1 % topical gel 1 ea topical Q12H PRN Pain 04/30/23 06/15/24 History cetirizine 10 mg tablet 10 mg PO HS 05/31/24 06/15/24 History cholecalciferol (vitamin D3) 125 125 mcg PO DAILY 05/31/24 06/15/24 History mcg (5,000 unit) capsule clonidine HCl 0.1 mg tablet 0.1 mg PO Q12H 05/31/24 06/15/24 History gabapentin 600 mg tablet 600 mg PO Q12H 05/31/24 06/15/24 History mirtazapine 7.5 mg tablet 7.5 mg PO HS 05/31/24 06/15/24 History nystatin 100,000 unit/gram topical 1 applic topical PRN PRN Rash 05/31/24 06/15/24 History powder nystatin 100,000 unit/mL oral 5 ml PO QID 05/31/24 06/15/24 History suspension ramelteon 8 mg tablet 8 mg PO HS 05/31/24 06/15/24 History budesonide 0.5 mg/2 mL suspension 0.5 mg (2 mL) inhalation Q12HRT 06/09/24 06/15/24 Rx for nebulization (Pulmicort) #60 mL guaifenesin 600 mg tablet, 1,200 mg PO Q12HR #30 tabs 06/09/24 06/15/24 Rx extended release 12 hr (Mucus Relief ER) ipratropium 0.5 mg-albuterol 3 mg 3 ml inhalation QID #180 mL 06/09/24 06/15/24 Rx (2.5 mg base)/3 mL nebulization soln prednisone 2.5 mg tablet 2.5 mg PO DAILY@0800 #7 tabs 06/09/24 06/15/24 Rx prednisone 2.5 mg tablet 7.5 mg PO DAILY@0800 #21 tabs 06/09/24 06/15/24 Rx prednisone 5 mg tablet 5 mg PO DAILY@0800 #7 tabs 06/09/24 06/15/24 Rx spironolactone 25 mg tablet 25 mg PO QAM #30 tabs 06/09/24 06/15/24 Rx fluticasone propionate 50 1 spray intranasal Q12HR 06/15/24 06/15/24 History mcg/actuation nasal spray,suspension guanfacine 1 mg tablet,extended 1 mg PO BID 06/15/24 06/15/24 History release 24 hr Allergies Allergy/AdvReac Type Severity Reaction Status Date / Time No Known Allergies Allergy Verified 05/31/24 10:29 Vital Signs Vital Signs - 24 hr 06/15/24 14:39 06/15/24 14:52 06/15/24 16:01 Temperature Pulse Rate 63 65 Respiratory Rate 16 16 Blood Pressure 112/52 L 104/56 L Pulse Oximetry 100 100 97 Oxygen Delivery Nasal Cannula Oxygen Flow Rate 3 06/15/24 16:42 06/15/24 20:00 06/15/24 20:36 Temperature 36.5 C Pulse Rate 61 Respiratory Rate 18 Blood Pressure 112/59 L Pulse Oximetry 97 97 99 Oxygen Delivery Nasal Cannula Nasal Cannula Oxygen Flow Rate 3 3 06/15/24 21:29 06/15/24 21:37 06/15/24 21:38 Temperature Pulse Rate 66 66 68 Respiratory Rate 18 18 Blood Pressure Pulse Oximetry 94 Oxygen Delivery Nasal Cannula Oxygen Flow Rate 2 06/16/24 02:28 06/16/24 02:37 06/16/24 03:03 Temperature 36.5 C Pulse Rate 62 66 57 L Respiratory Rate 18 20 Blood Pressure 99/56 L Pulse Oximetry 98 Oxygen Delivery Oxygen Flow Rate 06/16/24 07:10 06/16/24 07:10 06/16/24 07:20 Temperature Pulse Rate 62 62 67 Respiratory Rate 18 18 20 Blood Pressure Pulse Oximetry 97 Oxygen Delivery Nasal Cannula Oxygen Flow Rate 3 06/16/24 08:24 06/16/24 07:50 06/16/24 11:41 Temperature Pulse Rate 58 L 60 Respiratory Rate 12 Blood Pressure 116/61 Pulse Oximetry 99 99 Oxygen Delivery Nasal Cannula Oxygen Flow Rate 3 06/16/24 13:10 06/16/24 13:20 Temperature Pulse Rate 64 66 Respiratory Rate 18 18 Blood Pressure Pulse Oximetry Oxygen Delivery Oxygen Flow Rate Exam Narrative: GENERAL APPEARANCE: Well developed, well nourished, morbidly obese appears to be in mild respiratory distress while on supplemental oxygen via nasal cannula. SKIN: Inspection of the skin reveals no rashes, ulcerations or petechiae. HEENT: Sclerae anicteric and conjunctivae pink and moist. Extraocular movements were intact and pupils were equal. NECK: Supple. There was no thyroid enlargement, and no tenderness, or masses were felt. LUNGS: Wheezing in chest anteriorly CARDIAC: There was a regular rate and rhythm without any murmurs, gallops, rubs. ABDOMEN: Soft and nontender with normal bowel sounds. There was no organomegaly. EXTREMITIES: No cyanosis, clubbing; trace pedal edema NEUROLOGIC: Alert, cooperative following verbal commands Results Laboratory Findings 06/16/24 05:58 06/16/24 05:58 ABG, PT/INR, D-dimer: ABG ABG pH 7.348 (7.350-7.450) L 06/16/24 10:00 ABG pCO2 59.3 mmHg (35.0-45.0) H 06/16/24 10:00 ABG pO2 89.6 mmHg (80.0-100.0) 06/16/24 10:00 ABG O2 Saturation 96.2 % (95.0-100.0) 06/16/24 10:00 PT/INR, D-dimer PT 12.8 Seconds (11.1-14.7) 06/15/24 11:50 INR 0.9 06/15/24 11:50 Abnormal lab findings: Abnormal Labs 06/15/24 06/15/24 06/15/24 11:49 11:50 11:55 WBC 13.0 H RBC Hgb MCV 101.4 H MCHC 31.5 L MPV 10.6 H Immature Gran % (Auto) 1.0 H Neut % (Auto) 85.3 H Lymph % (Auto) 9.5 L Abs Immat Gran (auto) 0.13 H Absolute Neuts (auto) 11.1 H ABG pH ABG pCO2 65.5 H* ABG pO2 66.1 L ABG HCO3 35.6 H ABG O2 Saturation 91.6 L Reduced Hemoglobin 5.8 H Carbon Dioxide 35 H BUN 19 H Creatinine Glucose 308 H Lactic Acid 3.2 H NT-Pro-B Natriuret Pep 205 H Total Protein Albumin Urine Appearance Ur Specific [place] Urine Protein Urine Glucose (UA) Urine Ketones Ur Blood (Man) Urine Bilirubin Leukocyte Esterase Rfl Urine RBC Urine WBC Urine Bacteria 06/15/24 06/15/24 06/16/24 15:26 20:48 05:58 WBC RBC 3.80 L Hgb 11.8 L MCV 103.2 H MCHC 30.1 L MPV 10.7 H Immature Gran % (Auto) 1.0 H Neut % (Auto) Lymph % (Auto) Abs Immat Gran (auto) 0.09 H Absolute Neuts (auto) ABG pH ABG pCO2 ABG pO2 ABG HCO3 ABG O2 Saturation Reduced Hemoglobin Carbon Dioxide 31 H BUN 18 H Creatinine 0.50 L Glucose 153 H Lactic Acid 4.2 H* NT-Pro-B Natriuret Pep Total Protein 6.0 L Albumin 3.4 L Urine Appearance Turbid H Ur Specific [place] 1.040 H Urine Protein 2+ H Urine Glucose (UA) 2+ H Urine Ketones Trace H Ur Blood (Man) 3+ H Urine Bilirubin 1+ H Leukocyte Esterase Rfl Trace H Urine RBC >100 H Urine WBC 11-20 H Urine Bacteria 1+ H 06/16/24 10:00 WBC RBC Hgb MCV MCHC MPV Immature Gran % (Auto) Neut % (Auto) Lymph % (Auto) Abs Immat Gran (auto) Absolute Neuts (auto) ABG pH 7.348 L ABG pCO2 59.3 H ABG pO2 ABG HCO3 31.9 H ABG O2 Saturation Reduced Hemoglobin Carbon Dioxide BUN Creatinine Glucose Lactic Acid NT-Pro-B Natriuret Pep Total Protein Albumin Urine Appearance Ur Specific [place] Urine Protein Urine Glucose (UA) Urine Ketones Ur Blood (Man) Urine Bilirubin Leukocyte Esterase Rfl Urine RBC Urine WBC Urine Bacteria
[2024-06-16 14:18] LABS: MRSA (PCR) NOT DETECTED (NOT DETECTE)
--- NOTE | 2024-06-16 14:34 | PCSTNOTE ---
Please refer to the Bedside Swallow Evaluation in the EMR. Please note, silent aspiration cannot be ruled out at bedside.
[2024-06-16] MEDS: MIRTAZAPINE 7.5 MG TABLET PO (20:12)
[2024-06-16] MEDS: LORATADINE 10 MG TABLET PO (20:12)
[2024-06-17] VITALS (16 sets, daily range): BP systolic 103–133; BP diastolic 59–84; PULSE 60–96; RESP 18–20; TEMP 36–37.1; O2SAT 80–96
[2024-06-17] MEDS: CLINDAMYCIN 900 MG/D5W 50 ML 900 MG/50 ML PIGGYBACK 50 MG IVPB ×2 (00:42→08:43)
[2024-06-17] MEDS: IPRATROPIUM 0.5 MG/ALBUTEROL SULFATE 2.5 MG AMPUL.NEB 3 ML INHALATION ×4 (03:19→20:30)
[2024-06-17] MEDS: traMADol HCL (*CRX) 50 MG TABLET PO ×3 (05:20→21:32)
[2024-06-17 05:32] LABS: Hematocrit 39.9 % (37.0-47.0); Hemoglobin 12.1 g/dL (12.0-15.0); Mean Corpuscular HGB Conc 30.3 g/dl (32-36); Mean Corpuscular Hemoglobin 30.8 pg (26-34); Mean Corpuscular Volume 101.5 fl (80-100); Mean Platelet Volume 10.6 fl (7.4-10.4); Platelet Count Result 218 k/mm3 (150-375); Red Blood Count 3.93 M/mm3 (4.2-5.4); Red Cell Distribution Width 13.9 % (11.5-14.5); White Blood Count 8.9 K/mm3 (4.5-10.0)
[2024-06-17 05:46] LABS: Anion Gap 3 mmol/L (4-12); Blood Urea Nitrogen 26 mg/dL (7-17); Calcium 9.2 mg/dL (8.4-10.2); Carbon Dioxide 36 mmol/L (22-30); Chloride 98 mmol/L (98-107); Estimated CRCL calculation 85 ml/min; Estimated Glomerular Filt Rate > 60; Glucose 159 mg/dL (65-110); Potassium 4.3 mmol/L (3.4-5.0); Sodium 137 mmol/L (137-145)
[2024-06-17] MEDS: BUDESONIDE RESPULE NEB 0.5 MG/2 ML AMP INHALATION ×2 (07:59→20:30)
[2024-06-17] MEDS: GABAPENTIN 300 MG CAPSULE 600 MG PO ×2 (08:40→21:22)
[2024-06-17] MEDS: dilTIAZem HCL CD 120 MG CAP.24HR PO (08:40)
[2024-06-17] MEDS: CYANOCOBALAMIN 500 MCG TABLET PO (08:40)
[2024-06-17] MEDS: CHOLECALCIFEROL 5,000 UNITS TABLET 5000 UNITS BY MOUTH (08:40)
[2024-06-17] MEDS: SPIRONOLACTONE 25 MG TABLET PO (08:40)
[2024-06-17] MEDS: PANTOPRAZOLE 40 MG TABLET PO (08:40)
[2024-06-17] MEDS: DULoxetine HCL 60 MG CAPSULE.DR PO ×2 (08:41→21:22)
[2024-06-17] MEDS: cloNIDine HCL 0.1 MG TABLET PO ×2 (08:41→21:21)
[2024-06-17] MEDS: METOPROLOL SUCCINATE EXT REL 25 MG TABCR PO (08:41)
[2024-06-17] MEDS: NYSTATIN 100,000 UNITS/ML SUSP 5 ML ORAL.SUSP PO ×3 (08:41→17:47)
[2024-06-17] MEDS: PREGABALIN (*CRX) 75 MG CAPSULE PO ×2 (08:41→21:20)
[2024-06-17] MEDS: predniSONE 2.5 MG TABLET 7.5 MG PO (08:42)
[2024-06-17] MEDS: FLUTICASONE PROPIONATE 0.05% NA SPR 16 GM BTL (*BKC) 1 SPRAY NASAL ×2 (08:42→21:18)
[2024-06-17] MEDS: SENNA/DOCUSATE SODIUM TABLET 1 TAB PO ×2 (08:42→17:47)
[2024-06-17] MEDS: guaiFENesin 600 MG/DEXTROMETHORPHAN 30 MG SR TAB 12 HR 1 TAB PO ×2 (08:42→21:20)
[2024-06-17] MEDS: TOLNAFTATE 1% POWDER 45 GM BTL 1 APPLIC TOPICAL ×2 (08:43→21:18)
--- NOTE | 2024-06-17 10:03 | PCOTNOTE ---
Spoke with patient, nursing, care coordination, and hospitalist, Dr. Dutta. It appears as if pt. is mostly dependent at baseline, requiring assist for all ADLs and functional mobility, using rozina lift to wheelchair at facility. Pt. should continue to participate in mobilization and activity with nursing, but limitations and functional capacity are not acute. canceling orders.
--- NOTE | 2024-06-17 10:13 | PCPTNOTE ---
Per OT (who spoke with referring hospitalist), OK to DC therapy orders due to pt being at baseline using rozina lift/wheelchair.
--- NOTE | 2024-06-17 10:56 | PM.PNPUL ---
Progress Note: A&P Assessment and Plan (1) Acute and chronic respiratory failure with hypercapnia: Code(s): J96.22 - Acute and chronic respiratory failure with hypercapnia Status: Acute Assessment and Plan: This 74-year-old female has cognitive disability, minimal ability to communicate, and inability to provide any history regarding her presenting symptoms. As during her recent hospitalization, she again presented with shortness of breath, worsening hypercapnic respiratory failure, elevated lactic acid levels, and evidence of unchanged chest X-ray with chronic right lower lobe partial atelectasis and an elevated right hemidiaphragm, mild leukocytosis, and wheezing in the upper chest observed during my exam earlier today. The radiographic studies do not support a diagnosis of severe health care-associated pneumonia. Elevated lactic acid could be related to wheezing and increased load on respiratory muscles. The patient seems to be responding to treatment with nebulized short-acting bronchodilators, antibiotics, and vest treatment. She is still on a tapering prednisone regimen. The patient appears to have weak respiratory muscles, which, in conjunction with her cognitive function, promote bronchial secretion retention with frequent respiratory infections. The diagnosis of asthma is questionable, but this needs to be kept in mind now that the patient is on a tapering steroid regimen. She has a chronically elevated right hemidiaphragm, which may also contribute to bronchial secretion retention and hypoxemia at night. The patient cannot perform pulmonary function testing. During her last hospitalization, a video swallow study was also problematic as the patient could not perform it. This patient presents quite a few challenges in terms of keeping her out of the hospital. Plan: Continue with the current regimen of antibiotics, nebulized short-acting bronchodilators, prednisone regimen, and vest therapy. Retest for common viruses. (2) Asthma: Code(s): J45.909 - Unspecified asthma, uncomplicated Status: Acute (3) Dependence on wheelchair: Code(s): Z99.3 - Dependence on wheelchair Status: Inactive (4) History of traumatic brain injury: Code(s): Z87.820 - Personal history of traumatic brain injury Status: Inactive (5) Community acquired pneumonia: Qualifiers: Laterality: unspecified laterality Qualified Code(s): J18.9 - Pneumonia, unspecified organism Code(s): J18.9 - Pneumonia, unspecified organism Status: Ruled-out Subjective Date/time seen: 06/17/24 10:56 Interval history: Continues to complain of being sick. Has a chest congestion. No fever. On supplemental oxygen during the day Review of Systems Review of Systems: ROS unobtainable: Yes unobtainable due to medical condition Exam Narrative: GENERAL APPEARANCE: Well developed, well nourished, morbidly obese appears to be in mild respiratory distress while on supplemental oxygen via nasal cannula. SKIN: Inspection of the skin reveals no rashes, ulcerations or petechiae. HEENT: Sclerae anicteric and conjunctivae pink and moist. Extraocular movements were intact and pupils were equal. NECK: Supple. There was no thyroid enlargement, and no tenderness, or masses were felt. LUNGS: Rhonchi anterior chest CARDIAC: There was a regular rate and rhythm without any murmurs, gallops, rubs. ABDOMEN: Soft and nontender with normal bowel sounds. There was no organomegaly. EXTREMITIES: No cyanosis, clubbing; trace pedal edema NEUROLOGIC: Alert, cooperative following verbal commands Objective Data Vital Signs Vital Signs: Vital Signs - 24 hr 06/16/24 11:41 06/16/24 13:10 06/16/24 13:20 Temperature Pulse Rate 60 64 66 Respiratory Rate 18 18 Blood Pressure Pulse Oximetry Oxygen Delivery Oxygen Flow Rate 06/16/24 13:55 06/16/24 20:09 06/16/24 20:05 Temperature 36.5 C Pulse Rate 60 62 Respiratory Rate 20 18 Blood Pressure 118/56 L 128/72 Pulse Oximetry 95 97 97 Oxygen Delivery Nasal Cannula Oxygen Flow Rate 3 06/16/24 21:11 06/16/24 21:13 06/16/24 21:48 Temperature Pulse Rate 68 68 Respiratory Rate 20 20 20 Blood Pressure Pulse Oximetry 95 95 Oxygen Delivery Nasal Cannula Nasal Cannula Oxygen Flow Rate 3 3 06/17/24 03:19 06/17/24 03:28 06/17/24 04:39 Temperature 36.0 C L Pulse Rate 64 67 62 Respiratory Rate 18 18 20 Blood Pressure 130/64 Pulse Oximetry 91 Oxygen Delivery Oxygen Flow Rate 06/17/24 08:01 06/17/24 08:01 06/17/24 08:25 Temperature Pulse Rate 81 81 76 Respiratory Rate 20 20 20 Blood Pressure Pulse Oximetry 94 Oxygen Delivery Nasal Cannula Oxygen Flow Rate 3 06/17/24 08:41 06/17/24 08:35 Temperature Pulse Rate 76 Respiratory Rate Blood Pressure Pulse Oximetry 94 Oxygen Delivery Nasal Cannula Oxygen Flow Rate 3 Intake/Output Intake/Output: Intake & Output 06/14/24 06/15/24 06/16/24 06/17/24 23:59 23:59 23:59 23:59 Intake Total 50 1090 220 Output Total 100 300 300 Balance -50 790 -80 Meds/Results Medications: Active Medications Generic Name Dose Route Start Last Admin Trade Name Freq PRN Reason Stop Dose Admin Acetaminophen 650 mg 06/15/24 14:43 Acetaminophen 325 Mg Tablet PO Q4H PRN Mild Pain (1-3) or Fever Hydrocodone Bitart/Acetaminophen 1 tab 06/15/24 14:43 06/15/24 20:06 Hydrocodone/Acetaminophen (*Crx) 5-325 Mg Tablet PO 1 tab Q4H PRN Administration Pain Rated 4-6 Albuterol/Ipratropium 3 ml 06/15/24 20:00 06/17/24 07:58 Ipratropium 0.5 Mg/Albuterol Sulfate 2.5 Mg Ampul.Neb 3 Ml INHALATION 3 ml Q6HRT NAZANIN Administration Budesonide 0.5 mg 06/16/24 08:00 06/17/24 07:59 Budesonide Respule Neb 0.5 Mg/2 Ml Amp INHALATION 0.5 mg Q12HRT NAZANIN Administration Clonidine HCl 0.1 mg 06/15/24 21:00 06/17/24 08:41 Clonidine Hcl 0.1 Mg Tablet PO 0.1 mg Q12HR NAZANIN Administration Cyanocobalamin 500 mcg 06/16/24 09:00 06/17/24 08:40 Cyanocobalamin 500 Mcg Tablet PO 500 mcg DAILY NAZANIN Administration Diclofenac Sodium 1 applic 06/15/24 20:19 Diclofenac Sodium 1% 100 Gm Gel (*Bkc) TOPICAL Q12H PRN Pain Diltiazem HCl 120 mg 06/16/24 09:00 06/17/24 08:40 Diltiazem Hcl Cd 120 Mg Cap.24hr PO 120 mg QAM NAZANIN Administration Duloxetine HCl 60 mg 06/15/24 21:00 06/17/24 08:41 Duloxetine Hcl 60 Mg Capsule.Dr PO 60 mg Q12HR NAZANIN Administration Fluticasone Propionate 1 spray 06/15/24 21:00 06/17/24 08:42 Fluticasone Propionate 0.05% Na Spr 16 Gm Btl (*Bkc) NASAL 1 spray Q12HR NAZANIN Administration Gabapentin 600 mg 06/15/24 21:00 06/17/24 08:40 Gabapentin 300 Mg Capsule PO 600 mg Q12HR NAZANIN Administration Guaifenesin/Dextromethorphan 1 tab 06/15/24 21:00 06/17/24 08:42 Guaifenesin 600 Mg/Dextromethorphan 30 Mg Sr Tab 12 Hr PO 1 tab Q12HR NAZANIN Administration Ceftriaxone Sodium 1 gm in 50 mls @ 100 mls/hr 06/16/24 12:00 06/16/24 13:07 Rocephin 1 Gm/Ns 50 Ml IVPB Infused Q24H NAZANIN Infusion Azithromycin 500 mg in 250 mls @ 250 mls/hr 06/16/24 12:00 06/16/24 14:39 Zithromax IVPB Infused Q24H NAZANIN Infusion Clindamycin Phosphate 900 mg in 50 mls @ 50 mls/hr 06/16/24 00:00 06/17/24 09:43 Cleocin 900 Mg/D5w 50 Ml IVPB Infused Q8H NAZANIN Infusion Loratadine 10 mg 06/15/24 21:00 06/16/24 20:12 Loratadine 10 Mg Tablet PO 10 mg HS NAZANIN Administration Magnesium Hydroxide 30 ml 06/15/24 20:19 Magnesium Hydroxide Susp 30 Ml Udc PO DAILY PRN Constipation Metoprolol Succinate 25 mg 06/16/24 09:00 06/17/24 08:41 Metoprolol Succinate Ext Rel 25 Mg Tabcr PO 25 mg QAM NAZANIN Administration Miconazole Nitrate 1 applic 06/16/24 11:00 06/17/24 08:43 Miconazole 2% Antifungal Ointment 56 Gm TOPICAL 1 applic Q12HR NAZANIN Administration Mirtazapine 7.5 mg 06/15/24 21:00 06/16/24 20:12 Mirtazapine 7.5 Mg Tablet PO 7.5 mg HS NAZANIN Administration Nystatin 5 ml 06/15/24 21:00 06/17/24 08:41 Nystatin 100,000 Units/Ml Susp 5 Ml Oral.Susp PO 5 ml QID NAZANIN Administration Pantoprazole Sodium 40 mg 06/16/24 09:00 06/17/24 08:40 Pantoprazole 40 Mg Tablet PO 40 mg QAM NAZANIN Administration Polyethylene Glycol 17 gm 06/16/24 09:00 06/16/24 11:45 Polyethylene Glycol 3350 17 Gm Powd.Pack PO Not Given DAILY [facility] Prednisone 5 mg 06/18/24 08:00 Prednisone 5 Mg Tablet PO 06/24/24 08:01 DAILY@0800 [facility] Prednisone 2.5 mg 06/25/24 08:00 Prednisone 2.5 Mg Tablet PO 07/01/24 08:01 DAILY@0800 [facility] Pregabalin 75 mg 06/15/24 21:00 06/17/24 08:41 Pregabalin (*Crx) 75 Mg Capsule PO 75 mg Q12HR [facility] Administration Promethazine HCl 12.5 mg 06/15/24 14:43 Promethazine Hcl 25 Mg/Ml Ampul IV PUSH Q6H PRN Nausea Senna/Docusate Sodium 1 tab 06/16/24 09:00 06/17/24 08:42 Senna/Docusate Sodium Tablet PO 1 tab BID [facility] Administration Spironolactone 25 mg 06/16/24 09:00 06/17/24 08:40 Spironolactone 25 Mg Tablet PO 25 mg QAM [facility] Administration Tolnaftate 1 applic 06/15/24 21:00 06/17/24 08:43 Tolnaftate 1% Powder 45 Gm Btl TOPICAL 1 applic Q12HR [facility] Administration Tramadol HCl 50 mg 06/15/24 22:00 06/17/24 05:20 Tramadol Hcl (*Crx) 50 Mg Tablet PO 50 mg Q8HR NAZANIN Administration Vitamin D 5,000 units 06/16/24 09:00 06/17/24 08:40 Cholecalciferol 5,000 Units Tablet BY MOUTH 5,000 units DAILY NAZANIN Administration Radiology Results: ITS Impressions Chest X-Ray 06/15/24 12:29 IMPRESSION: 1. Airspace opacities in the lower lung zones, consistent with atelectasis versus pneumonia. Head CT 06/16/24 14:41 IMPRESSION: 1. 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 No acute intercranial process. 2. Minimal left and large right mastoid effusions. Neck/Chest CT 06/16/24 14:43 IMPRESSION: 1. No etiology for the patient's symptoms. Labs Labs: Laboratory Results - last 24 hr 06/16/24 06/16/24 06/17/24 12:39 12:40 05:17 WBC 8.9 RBC 3.93 L Hgb 12.1 Hct 39.9 MCV 101.5 H MCH 30.8 MCHC 30.3 L RDW 13.9 Plt Count 218 MPV 10.6 H Sodium 137 Potassium 4.3 Chloride 98 Carbon Dioxide 36 H Anion Gap 3 L BUN 26 H Creatinine 0.60 L Estim Creat Clear Calc 85 Estimated GFR > 60 Glucose 159 H Calcium 9.2 Nasal MRSA (PCR) Not detected Group A Strep (PCR) Not detected
[2024-06-17 11:52] LABS: Influenza A QL RT-PCR Negative (Negative); Influenza B QL RT-PCR Negative (Negative); RSV RNA, RT-PCR Negative (Negative); SARS-CoV-2 RNA PCR Negative (Negative)
[2024-06-17] MEDS: AZITHROMYCIN 500 MG/NS 250 ML 500 MG/250 ML BAG 250 MG IVPB (13:12)
--- NOTE | 2024-06-17 16:03 | PM.IMPN ---
Progress Note: A&P Assessment and Plan (1) Acute and chronic respiratory failure with hypercapnia: Code(s): J96.22 - Acute and chronic respiratory failure with hypercapnia Status: Acute Assessment and Plan: Patient presents with SOB. CXR showing airspace opacities in the lower lung zones, consistent with atelectasis versus pneumonia. ABG 7.35/65.5/66 on 3L. Repeat ABG 7.35/59/[address] chest showing mild atelectasis, old granulomatous disease. Consider bronchitis vs aspiration vs asthma exacerbation vs hypoventilation 2/2 obesity Duonebs and Abx ordered. CPT ordered. Mucinex. Speech therapy evaluation showing patient tolerating current diet but can not exclude aspiration since she can not have a MBS. Continue minced/moist and mildly thickened liquid diet Pulmonology consulted and appreciate their input. Continue Mucinex and Duonebs. No obvious PNA on CT so will cahnge abx to oral for 5 day course for bronchitis. (2) Pneumonia: Qualifiers: Aspiration pneumonia type: unspecified Laterality: unspecified laterality Lung location: unspecified part of lung Pneumonia type: aspiration pneumonia Qualified Code(s): J69.0 - Pneumonitis due to inhalation of food and vomit Code(s): J18.9 - Pneumonia, unspecified organism Status: Acute Assessment and Plan: CXR as above. Influenza, COVID and RSV negative. CT chest does not show PNA. Started on ceftriaxone, azithromycin, and clindamycin due to concern for aspiration pneumonia MRSA PCR negative Wean O2 as tolerated. Change abx as above (3) Sepsis: Code(s): A41.9 - Sepsis, unspecified organism Status: Acute Assessment and Plan: Patient met criteria for sepsis with RR, lactic acidosis and WBC. Lactic acid: 3.2-> 4.2 Procalcitonin 0. WBC 13K -> normal Unable to give sepsis bolus due to volume overload, will start at 75 mL/hour. Will need strict I&Os. Suspected source: UTI, bronchitis BCx NGTD. UCx growing Enterococcus. Adjust abx. (4) UTI (urinary tract infection): Code(s): N39.0 - Urinary tract infection, site not specified Status: Acute Assessment and Plan: UA noted. UCx growing Enterococcus Will change to Augmentin and follow up on culture results. (5) Lactic acidosis: Code(s): E87.20 - Acidosis, unspecified Status: Acute Assessment and Plan: As above (6) Neck pain: Code(s): M54.2 - Cervicalgia Status: Acute Assessment and Plan: Patient complains of sore throat and neck pain. Group A strep negative. CT neck showing no acute findings. Follow Plan DVT Prophylaxis: SCDs Code Status: DNR Subjective Date/time seen: 06/17/24 16:03 Interval history: 74yo female with anxiety/depression, atrial flutter, chronic pain syndrome, footdrop, GERD, TBI, and SVT here for shortness of breath. She is alert but confused. She is asking about souvenirs and dinner. Review of Systems Review of Systems: ROS unobtainable: Yes unobtainable due to mental status Exam Narrative: AF 98.1 103/61 60 20 95% 3L Gen - NARD sitting up in bed Chest - coarse breath sounds. CV - S1/S2 Abd - Soft, obese, NT, +BS Ext - 1+ pedal edema Neuro - Alert but confused. Psych - Nml mood and affect. more talkative today Skin - Warm with dry skin with areas of scale Objective Data Vital Signs Vital Signs: Vital Signs - 24 hr 06/16/24 20:09 06/16/24 20:05 06/16/24 21:11 Temperature 97.7 F Pulse Rate 62 68 Respiratory Rate 18 20 Blood Pressure 128/72 Pulse Oximetry 97 97 Oxygen Delivery Nasal Cannula Oxygen Flow Rate 3 Fraction of Inspired Oxygen 06/16/24 21:13 06/16/24 21:48 06/17/24 03:19 Temperature Pulse Rate 68 64 Respiratory Rate 20 20 18 Blood Pressure Pulse Oximetry 95 95 Oxygen Delivery Nasal Cannula Nasal Cannula Oxygen Flow Rate 3 3 Fraction of Inspired Oxygen 06/17/24 03:28 06/17/24 04:39 06/17/24 08:01 Temperature 96.8 F L Pulse Rate 67 62 81 Respiratory Rate 18 20 20 Blood Pressure 130/64 Pulse Oximetry 91 94 Oxygen Delivery Nasal Cannula Oxygen Flow Rate 3 Fraction of Inspired Oxygen 06/17/24 08:01 06/17/24 08:25 06/17/24 08:41 Temperature Pulse Rate 81 76 76 Respiratory Rate 20 20 Blood Pressure Pulse Oximetry Oxygen Delivery Oxygen Flow Rate Fraction of Inspired Oxygen 06/17/24 08:35 06/17/24 13:44 06/17/24 13:44 Temperature Pulse Rate 82 Respiratory Rate 20 Blood Pressure Pulse Oximetry 94 95 Oxygen Delivery Nasal Cannula Nasal Cannula Oxygen Flow Rate 3 3 Fraction of Inspired Oxygen 32 06/17/24 13:54 06/17/24 14:00 Temperature 98.1 F Pulse Rate 80 60 Respiratory Rate 20 20 Blood Pressure 103/61 Pulse Oximetry 95 Oxygen Delivery Oxygen Flow Rate Fraction of Inspired Oxygen Intake/Output Intake/Output: Intake & Output 06/14/24 06/15/24 06/16/24 06/17/24 23:59 23:59 23:59 23:59 Intake Total 50 1090 1240 Output Total 100 300 300 Balance -50 790 940 Meds/Results Medications: Active Medications Generic Name Dose Route Start Last Admin Trade Name Freq PRN Reason Stop Dose Admin Acetaminophen 650 mg 06/15/24 14:43 Acetaminophen 325 Mg Tablet PO Q4H PRN Mild Pain (1-3) or Fever Hydrocodone Bitart/Acetaminophen 1 tab 06/15/24 14:43 06/15/24 20:06 Hydrocodone/Acetaminophen (*Crx) 5-325 Mg Tablet PO 1 tab Q4H PRN Administration Pain Rated 4-6 Albuterol/Ipratropium 3 ml 06/15/24 20:00 06/17/24 13:44 Ipratropium 0.5 Mg/Albuterol Sulfate 2.5 Mg Ampul.Neb 3 Ml INHALATION 3 ml Q6HRT NAZANIN Administration Budesonide 0.5 mg 06/16/24 08:00 06/17/24 07:59 Budesonide Respule Neb 0.5 Mg/2 Ml Amp INHALATION 0.5 mg Q12HRT NAZANIN Administration Clonidine HCl 0.1 mg 06/15/24 21:00 06/17/24 08:41 Clonidine Hcl 0.1 Mg Tablet PO 0.1 mg Q12HR NAZANIN Administration Cyanocobalamin 500 mcg 06/16/24 09:00 06/17/24 08:40 Cyanocobalamin 500 Mcg Tablet PO 500 mcg DAILY NAZANIN Administration Diclofenac Sodium 1 applic 06/15/24 20:19 Diclofenac Sodium 1% 100 Gm Gel (*Bkc) TOPICAL Q12H PRN Pain Diltiazem HCl 120 mg 06/16/24 09:00 06/17/24 08:40 Diltiazem Hcl Cd 120 Mg Cap.24hr PO 120 mg QAM NAZANIN Administration Duloxetine HCl 60 mg 06/15/24 21:00 06/17/24 08:41 Duloxetine Hcl 60 Mg Capsule.Dr PO 60 mg Q12HR NAZANIN Administration Fluticasone Propionate 1 spray 06/15/24 21:00 06/17/24 08:42 Fluticasone Propionate 0.05% Na Spr 16 Gm Btl (*Bkc) NASAL 1 spray Q12HR NAZANIN Administration Gabapentin 600 mg 06/15/24 21:00 06/17/24 08:40 Gabapentin 300 Mg Capsule PO 600 mg Q12HR NAZANIN Administration Guaifenesin/Dextromethorphan 1 tab 06/15/24 21:00 06/17/24 08:42 Guaifenesin 600 Mg/Dextromethorphan 30 Mg Sr Tab 12 Hr PO 1 tab Q12HR NAZANIN Administration Ceftriaxone Sodium 1 gm in 50 mls @ 100 mls/hr 06/16/24 12:00 06/17/24 13:03 Rocephin 1 Gm/Ns 50 Ml IVPB Infused Q24H NAZANIN Infusion Azithromycin 500 mg in 250 mls @ 250 mls/hr 06/16/24 12:00 06/17/24 14:12 Zithromax IVPB Infused Q24H NAZANIN Infusion Clindamycin Phosphate 900 mg in 50 mls @ 50 mls/hr 06/16/24 00:00 06/17/24 09:43 Cleocin 900 Mg/D5w 50 Ml IVPB Infused Q8H NAZANIN Infusion Loratadine 10 mg 06/15/24 21:00 06/16/24 20:12 Loratadine 10 Mg Tablet PO 10 mg HS NAZANIN Administration Magnesium Hydroxide 30 ml 06/15/24 20:19 Magnesium Hydroxide Susp 30 Ml Udc PO DAILY PRN Constipation Metoprolol Succinate 25 mg 06/16/24 09:00 06/17/24 08:41 Metoprolol Succinate Ext Rel 25 Mg Tabcr PO 25 mg QAM NAZANIN Administration Miconazole Nitrate 1 applic 06/16/24 11:00 06/17/24 08:43 Miconazole 2% Antifungal Ointment 56 Gm TOPICAL 1 applic Q12HR NAZANIN Administration Mirtazapine 7.5 mg 06/15/24 21:00 06/16/24 20:12 Mirtazapine 7.5 Mg Tablet PO 7.5 mg HS NAZANIN Administration Nystatin 5 ml 06/15/24 21:00 06/17/24 13:12 Nystatin 100,000 Units/Ml Susp 5 Ml Oral.Susp PO 5 ml QID NAZANIN Administration Pantoprazole Sodium 40 mg 06/16/24 09:00 06/17/24 08:40 Pantoprazole 40 Mg Tablet PO 40 mg QAM NAZANIN Administration Polyethylene Glycol 17 gm 06/16/24 09:00 06/17/24 12:31 Polyethylene Glycol 3350 17 Gm Powd.Pack PO Not Given DAILY [facility] Prednisone 5 mg 06/18/24 08:00 Prednisone 5 Mg Tablet PO 06/24/24 08:01 DAILY@0800 [facility] Prednisone 2.5 mg 06/25/24 08:00 Prednisone 2.5 Mg Tablet PO 07/01/24 08:01 DAILY@0800 [facility] Pregabalin 75 mg 06/15/24 21:00 06/17/24 08:41 Pregabalin (*Crx) 75 Mg Capsule PO 75 mg Q12HR NAZANIN Administration Promethazine HCl 12.5 mg 06/15/24 14:43 Promethazine Hcl 25 Mg/Ml Ampul IV PUSH Q6H PRN Nausea Senna/Docusate Sodium 1 tab 06/16/24 09:00 06/17/24 08:42 Senna/Docusate Sodium Tablet PO 1 tab BID [facility] Administration Spironolactone 25 mg 06/16/24 09:00 06/17/24 08:40 Spironolactone 25 Mg Tablet PO 25 mg QAM [facility] Administration Tolnaftate 1 applic 06/15/24 21:00 06/17/24 08:43 Tolnaftate 1% Powder 45 Gm Btl TOPICAL 1 applic Q12HR NAZANIN Administration Tramadol HCl 50 mg 06/15/24 22:00 06/17/24 13:14 Tramadol Hcl (*Crx) 50 Mg Tablet PO 50 mg Q8HR [facility] Administration Vitamin D 5,000 units 06/16/24 09:00 06/17/24 08:40 Cholecalciferol 5,000 Units Tablet BY MOUTH 5,000 units DAILY NAZANIN Administration Radiology Results: ITS Impressions Chest X-Ray 06/15/24 12:29 IMPRESSION: 1. Airspace opacities in the lower lung zones, consistent with atelectasis versus pneumonia. Head CT 06/16/24 14:41 IMPRESSION: 1. 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 No acute intercranial process. 2. Minimal left and large right mastoid effusions. Neck/Chest CT 06/16/24 14:43 IMPRESSION: 1. No etiology for the patient's symptoms. Labs Labs: Laboratory Results - last 24 hr 06/17/24 06/17/24 05:17 11:10 WBC 8.9 RBC 3.93 L Hgb 12.1 Hct 39.9 MCV 101.5 H MCH 30.8 MCHC 30.3 L RDW 13.9 Plt Count 218 MPV 10.6 H Sodium 137 Potassium 4.3 Chloride 98 Carbon Dioxide 36 H Anion Gap 3 L BUN 26 H Creatinine 0.60 L Estim Creat Clear Calc 85 Estimated GFR > 60 Glucose 159 H Calcium 9.2 Influenza A (RT-PCR) Negative Influenza B (RT-PCR) Negative RSV (RT-PCR) Negative SARS-CoV-2 RNA (RT-PCR) Negative
[2024-06-17] MEDS: LORATADINE 10 MG TABLET PO (21:21)
[2024-06-17] MEDS: AMOXICILLIN/CLAVULANATE K 875-125 MG TAB 1 TABLET PO (21:22)
[2024-06-17] MEDS: MIRTAZAPINE 7.5 MG TABLET PO (21:22)
[2024-06-17] MEDS: DICLOFENAC SODIUM 1% 100 GM GEL (*BKC) 1 APPLIC TOPICAL (21:23)
[2024-06-18] VITALS (15 sets, daily range): BP systolic 136–144; BP diastolic 54–72; PULSE 70–85; RESP 12–20; TEMP 36.2–37; O2SAT 94–100
[2024-06-18] MEDS: NYSTATIN 100,000 UNITS/ML SUSP 5 ML ORAL.SUSP PO ×5 (00:03→21:17)
[2024-06-18] MEDS: IPRATROPIUM 0.5 MG/ALBUTEROL SULFATE 2.5 MG AMPUL.NEB 3 ML INHALATION ×4 (02:09→20:53)
[2024-06-18] MEDS: traMADol HCL (*CRX) 50 MG TABLET PO ×3 (06:05→21:25)
[2024-06-18] MEDS: BUDESONIDE RESPULE NEB 0.5 MG/2 ML AMP INHALATION ×2 (07:36→20:54)
[2024-06-18] MEDS: predniSONE 5 MG TABLET PO (09:27)
[2024-06-18] MEDS: AMOXICILLIN/CLAVULANATE K 875-125 MG TAB 1 TABLET PO ×2 (09:27→21:18)
[2024-06-18] MEDS: AZITHROMYCIN 250 MG TABLET PO (09:27)
[2024-06-18] MEDS: cloNIDine HCL 0.1 MG TABLET PO ×2 (09:28→21:18)
[2024-06-18] MEDS: CYANOCOBALAMIN 500 MCG TABLET PO (09:28)
[2024-06-18] MEDS: CHOLECALCIFEROL 5,000 UNITS TABLET 5000 UNITS BY MOUTH (09:28)
[2024-06-18] MEDS: dilTIAZem HCL CD 120 MG CAP.24HR PO (09:28)
[2024-06-18] MEDS: PREGABALIN (*CRX) 75 MG CAPSULE PO ×2 (09:29→21:17)
[2024-06-18] MEDS: SENNA/DOCUSATE SODIUM TABLET 1 TAB PO ×2 (09:29→17:44)
[2024-06-18] MEDS: GABAPENTIN 300 MG CAPSULE 600 MG PO ×2 (09:29→21:17)
[2024-06-18] MEDS: METOPROLOL SUCCINATE EXT REL 25 MG TABCR PO (09:29)
[2024-06-18] MEDS: SPIRONOLACTONE 25 MG TABLET PO (09:30)
[2024-06-18] MEDS: PANTOPRAZOLE 40 MG TABLET PO (09:30)
[2024-06-18] MEDS: DULoxetine HCL 60 MG CAPSULE.DR PO ×2 (09:30→21:18)
[2024-06-18] MEDS: FLUTICASONE PROPIONATE 0.05% NA SPR 16 GM BTL (*BKC) 1 SPRAY NASAL ×2 (09:31→21:18)
[2024-06-18] MEDS: TOLNAFTATE 1% POWDER 45 GM BTL 1 APPLIC TOPICAL ×2 (09:34→21:17)
--- NOTE | 2024-06-18 10:02 | PM.PNPUL ---
Progress Note: A&P Assessment and Plan (1) Acute and chronic respiratory failure with hypercapnia: Code(s): J96.22 - Acute and chronic respiratory failure with hypercapnia Status: Acute Assessment and Plan: This 74-year-old female has cognitive disability, minimal ability to communicate, and inability to provide any history regarding her presenting symptoms. As during her recent hospitalization, she again presented with shortness of breath, worsening hypercapnic respiratory failure, and evidence of unchanged chest X-ray with chronic right lower lobe partial atelectasis and an elevated right hemidiaphragm, mild leukocytosis, and wheezing in the upper chest observed during my exam earlier yesterday. The radiographic studies do not support a diagnosis of severe health care-associated pneumonia. Elevated lactic acid could be related to wheezing and increased load on respiratory muscles. The patient seems to be responding to treatment with nebulized short-acting bronchodilators, antibiotics, and vest treatment. She is still on a tapering prednisone regimen. The patient appears to have weak respiratory muscles, which, in conjunction with her cognitive function, promote bronchial secretion retention with frequent respiratory infections. The diagnosis of asthma is questionable, but this needs to be kept in mind now that the patient is on a tapering steroid regimen. She has a chronically elevated right hemidiaphragm, which may also contribute to bronchial secretion retention and hypoxemia at night. The patient cannot perform pulmonary function testing. During her last hospitalization, a video swallow study was also problematic as the patient could not perform it. This patient presents quite a few challenges in terms of keeping her out of the hospital. Chest CT done yesterday again showed chronically elevated right hemidiaphragm and some infiltrates at both bases related to atelectasis. There is no clear-cut evidence of pneumonia. Retesting for viruses again negative Plan: Continue with the current regimen of antibiotics, nebulized short-acting bronchodilators, prednisone regimen, and vest therapy. (2) Asthma: Code(s): J45.909 - Unspecified asthma, uncomplicated Status: Acute (3) Dependence on wheelchair: Code(s): Z99.3 - Dependence on wheelchair Status: Inactive (4) History of traumatic brain injury: Code(s): Z87.820 - Personal history of traumatic brain injury Status: Inactive (5) Community acquired pneumonia: Qualifiers: Laterality: unspecified laterality Qualified Code(s): J18.9 - Pneumonia, unspecified organism Code(s): J18.9 - Pneumonia, unspecified organism Status: Ruled-out Subjective Date/time seen: 06/18/24 10:02 Interval history: Patient again answered that she does not feel good. No other specific complaints. She has been on treatment with antibiotics short-acting bronchodilators presumably for lower respiratory tract infection. She underwent chest CT yesterday Review of Systems Review of Systems: All systems reviewed & are unremarkable except as noted in HPI and below (HPI and below) Exam Narrative: GENERAL APPEARANCE: Well developed, well nourished, morbidly obese appears to be in mild respiratory distress while on supplemental oxygen via nasal cannula. SKIN: Inspection of the skin reveals no rashes, ulcerations or petechiae. HEENT: Sclerae anicteric and conjunctivae pink and moist. Extraocular movements were intact and pupils were equal. NECK: Supple. There was no thyroid enlargement, and no tenderness, or masses were felt. LUNGS: Rhonchi anterior chest as before, no wheezing CARDIAC: There was a regular rate and rhythm without any murmurs, gallops, rubs. ABDOMEN: Soft and nontender with normal bowel sounds. There was no organomegaly. EXTREMITIES: No cyanosis, clubbing; trace pedal edema NEUROLOGIC: Alert, cooperative following verbal commands Objective Data Vital Signs Vital Signs: Vital Signs - 24 hr 06/17/24 13:44 06/17/24 13:44 06/17/24 13:54 Temperature Pulse Rate 82 80 Respiratory Rate 20 20 Blood Pressure Pulse Oximetry 95 Oxygen Delivery Nasal Cannula Oxygen Flow Rate 3 Fraction of Inspired Oxygen 06/17/24 14:00 06/17/24 20:17 06/17/24 20:30 Temperature 36.7 C 36.8 C Pulse Rate 60 85 87 Respiratory Rate 20 20 20 Blood Pressure 103/61 127/84 Pulse Oximetry 95 94 Oxygen Delivery Oxygen Flow Rate Fraction of Inspired Oxygen 06/17/24 20:46 06/17/24 21:02 06/17/24 22:00 Temperature 37.1 C Pulse Rate 81 96 Respiratory Rate 20 18 Blood Pressure 133/59 L Pulse Oximetry 96 80 L Oxygen Delivery Nasal Cannula Oxygen Flow Rate 3 Fraction of Inspired Oxygen 32 06/17/24 21:32 06/18/24 02:10 06/18/24 02:17 Temperature Pulse Rate 70 70 Respiratory Rate 20 20 20 Blood Pressure Pulse Oximetry 94 Oxygen Delivery Nasal Cannula Oxygen Flow Rate 3 Fraction of Inspired Oxygen 06/18/24 06:00 06/18/24 07:37 06/18/24 07:37 Temperature 36.2 C L Pulse Rate 70 70 Respiratory Rate 20 20 Blood Pressure 136/54 L Pulse Oximetry 100 98 Oxygen Delivery Nasal Cannula Oxygen Flow Rate 4 Fraction of Inspired Oxygen 06/18/24 08:50 06/18/24 09:29 Temperature Pulse Rate 74 Respiratory Rate Blood Pressure Pulse Oximetry 95 Oxygen Delivery Nasal Cannula Oxygen Flow Rate 2 Fraction of Inspired Oxygen Intake/Output Intake/Output: Intake & Output 06/15/24 06/16/24 06/17/24 06/18/24 23:59 23:59 23:59 23:59 Intake Total 50 1090 1720 360 Output Total 100 300 600 350 Balance -50 790 1120 10 Meds/Results Medications: Active Medications Generic Name Dose Route Start Last Admin Trade Name Freq PRN Reason Stop Dose Admin Acetaminophen 650 mg 06/15/24 14:43 Acetaminophen 325 Mg Tablet PO Q4H PRN Mild Pain (1-3) or Fever Hydrocodone Bitart/Acetaminophen 1 tab 06/15/24 14:43 06/15/24 20:06 Hydrocodone/Acetaminophen (*Crx) 5-325 Mg Tablet PO 1 tab Q4H PRN Administration Pain Rated 4-6 Albuterol/Ipratropium 3 ml 06/15/24 20:00 06/18/24 07:36 Ipratropium 0.5 Mg/Albuterol Sulfate 2.5 Mg Ampul.Neb 3 Ml INHALATION 3 ml Q6HRT NAZANIN Administration Amoxicillin/Clavulanate Potassium 1 tablet 06/17/24 21:00 06/18/24 09:27 Amoxicillin/Clavulanate K 875-125 Mg Tab PO 06/21/24 21:01 1 tablet Q12HR NAZANIN Administration Azithromycin 250 mg 06/18/24 09:00 06/18/24 09:27 Azithromycin 250 Mg Tablet PO 06/19/24 09:01 250 mg DAILY NAZANIN Administration Budesonide 0.5 mg 06/16/24 08:00 06/18/24 07:36 Budesonide Respule Neb 0.5 Mg/2 Ml Amp INHALATION 0.5 mg Q12HRT NAZANIN Administration Clonidine HCl 0.1 mg 06/15/24 21:00 06/18/24 09:28 Clonidine Hcl 0.1 Mg Tablet PO 0.1 mg Q12HR NAZANIN Administration Cyanocobalamin 500 mcg 06/16/24 09:00 06/18/24 09:28 Cyanocobalamin 500 Mcg Tablet PO 500 mcg DAILY NAZANIN Administration Diclofenac Sodium 1 applic 06/15/24 20:19 06/17/24 21:23 Diclofenac Sodium 1% 100 Gm Gel (*Bkc) TOPICAL 1 applic Q12H PRN Administration Pain Diltiazem HCl 120 mg 06/16/24 09:00 06/18/24 09:28 Diltiazem Hcl Cd 120 Mg Cap.24hr PO 120 mg QAM NAZANIN Administration Duloxetine HCl 60 mg 06/15/24 21:00 06/18/24 09:30 Duloxetine Hcl 60 Mg Capsule.Dr PO 60 mg Q12HR NAZANIN Administration Fluticasone Propionate 1 spray 06/15/24 21:00 06/18/24 09:31 Fluticasone Propionate 0.05% Na Spr 16 Gm Btl (*Bkc) NASAL 1 spray Q12HR NAZANIN Administration Gabapentin 600 mg 06/15/24 21:00 06/18/24 09:29 Gabapentin 300 Mg Capsule PO 600 mg Q12HR NAZANIN Administration Loratadine 10 mg 06/15/24 21:00 06/17/24 21:21 Loratadine 10 Mg Tablet PO 10 mg HS NAZANIN Administration Magnesium Hydroxide 30 ml 06/15/24 20:19 Magnesium Hydroxide Susp 30 Ml Udc PO DAILY PRN Constipation Metoprolol Succinate 25 mg 06/16/24 09:00 06/18/24 09:29 Metoprolol Succinate Ext Rel 25 Mg Tabcr PO 25 mg QAM NAZANIN Administration Miconazole Nitrate 1 applic 06/16/24 11:00 06/18/24 09:30 Miconazole 2% Antifungal Ointment 56 Gm TOPICAL 1 applic Q12HR NAZANIN Administration Mirtazapine 7.5 mg 06/15/24 21:00 06/17/24 21:22 Mirtazapine 7.5 Mg Tablet PO 7.5 mg HS NAZANIN Administration Nystatin 5 ml 06/15/24 21:00 06/18/24 09:30 Nystatin 100,000 Units/Ml Susp 5 Ml Oral.Susp PO 5 ml QID NAZANIN Administration Pantoprazole Sodium 40 mg 06/16/24 09:00 06/18/24 09:30 Pantoprazole 40 Mg Tablet PO 40 mg QAM NAZANIN Administration Polyethylene Glycol 17 gm 06/16/24 09:00 06/17/24 12:31 Polyethylene Glycol 3350 17 Gm Powd.Pack PO Not Given DAILY [facility] Prednisone 5 mg 06/18/24 08:00 06/18/24 09:27 Prednisone 5 Mg Tablet PO 06/24/24 08:01 5 mg DAILY@0800 NAZANIN Administration Prednisone 2.5 mg 06/25/24 08:00 Prednisone 2.5 Mg Tablet PO 07/01/24 08:01 DAILY@0800 [facility] Pregabalin 75 mg 06/15/24 21:00 06/18/24 09:29 Pregabalin (*Crx) 75 Mg Capsule PO 75 mg Q12HR [facility] Administration Promethazine HCl 12.5 mg 06/15/24 14:43 Promethazine Hcl 25 Mg/Ml Ampul IV PUSH Q6H PRN Nausea Senna/Docusate Sodium 1 tab 06/16/24 09:00 06/18/24 09:29 Senna/Docusate Sodium Tablet PO 1 tab BID NAZANIN Administration Spironolactone 25 mg 06/16/24 09:00 06/18/24 09:30 Spironolactone 25 Mg Tablet PO 25 mg QAM NAZANIN Administration Tolnaftate 1 applic 06/15/24 21:00 06/18/24 09:34 Tolnaftate 1% Powder 45 Gm Btl TOPICAL 1 applic Q12HR NAZANIN Administration Tramadol HCl 50 mg 06/15/24 22:00 06/18/24 06:05 Tramadol Hcl (*Crx) 50 Mg Tablet PO 50 mg Q8HR NAZANIN Administration Vitamin D 5,000 units 06/16/24 09:00 06/18/24 09:28 Cholecalciferol 5,000 Units Tablet BY MOUTH 5,000 units DAILY NAZANIN Administration Radiology Results: ITS Impressions Chest X-Ray 06/15/24 12:29 IMPRESSION: 1. Airspace opacities in the lower lung zones, consistent with atelectasis versus pneumonia. Head CT 06/16/24 14:41 IMPRESSION: 1. 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 No acute intercranial process. 2. Minimal left and large right mastoid effusions. Neck/Chest CT 06/16/24 14:43 IMPRESSION: 1. No etiology for the patient's symptoms. Labs Labs: Laboratory Results - last 24 hr 06/17/24 11:10 Influenza A (RT-PCR) Negative Influenza B (RT-PCR) Negative RSV (RT-PCR) Negative SARS-CoV-2 RNA (RT-PCR) Negative
--- NOTE | 2024-06-18 11:11 | P.PNIM_ITS ---
Progress Note: A&P Assessment and Plan (1) Acute and chronic respiratory failure with hypercapnia: Code(s): J96.22 - Acute and chronic respiratory failure with hypercapnia Status: Acute Assessment and Plan: Patient presents with SOB. CXR showing airspace opacities in the lower lung zones, consistent with atelectasis versus pneumonia. ABG 7.35/65.5/66 on 3L. Repeat ABG 7.35/59/[address] chest showing mild atelectasis, old granulomatous disease. Consider bronchitis vs aspiration vs asthma exacerbation vs hypoventilation 2/2 obesity Duonebs and Abx ordered. CPT ordered. Mucinex. Speech therapy evaluation showing patient tolerating current diet but can not exclude aspiration since she can not have a MBS. Continue minced/moist and mildly thickened liquid diet Pulmonology consulted and appreciate their input. Continue CPT, Mucinex and Duonebs. No obvious PNA. Abx for bronchitis. Prednisone taper Discharge when okay with others. (2) Pneumonia: Qualifiers: Aspiration pneumonia type: unspecified Laterality: unspecified laterality Lung location: unspecified part of lung Pneumonia type: aspiration pneumonia Qualified Code(s): J69.0 - Pneumonitis due to inhalation of food and vomit Code(s): J18.9 - Pneumonia, unspecified organism Status: Acute Assessment and Plan: CXR as above. Influenza, COVID and RSV negative. CT chest does not show PNA. Started on ceftriaxone, azithromycin, and clindamycin due to concern for aspiration pneumonia MRSA PCR negative Wean O2 as tolerated. Change abx as above PNA ruled out (3) Sepsis: Code(s): A41.9 - Sepsis, unspecified organism Status: Acute Assessment and Plan: Patient met criteria for sepsis with RR, lactic acidosis and WBC. Lactic acid: 3.2-> 4.2 Procalcitonin 0. WBC 13K -> normal Unable to give sepsis bolus due to volume overload, but started at 75 mL/hour. Strict I&Os. Suspected source: UTI, bronchitis BCx NGTD. UCx growing Enterococcus. Abx adjusted. (4) UTI (urinary tract infection): Code(s): N39.0 - Urinary tract infection, site not specified Status: Acute Assessment and Plan: UA noted. UCx growing Enterococcus that is sharp-sensitive Changed to Augmentin (5) Lactic acidosis: Code(s): E87.20 - Acidosis, unspecified Status: Acute Assessment and Plan: As above (6) Neck pain: Code(s): M54.2 - Cervicalgia Status: Acute Assessment and Plan: Patient complains of sore throat and neck pain. Group A strep negative. CT neck showing no acute findings. Follow Plan DVT Prophylaxis: SCDs Code Status: DNR Subjective Date/time seen: 06/18/24 11:11 Interval history: 74yo female with anxiety/depression, atrial flutter, chronic pain syndrome, footdrop, GERD, TBI, and SVT here for shortness of breath. She is alert but confused. No family in the room Review of Systems Review of Systems: ROS unobtainable: Yes unobtainable due to mental status Exam Narrative: AF 97.1 136/54 74 20 95% 2L Gen - NARD Chest - coarse breath sounds. CV - RRR S1/S2 Abd - Soft, obese, NT, +BS Ext - 1+ pedal edema Neuro - Alert but confused. Bilateral chronic planatar flexion contractions Psych - Nml mood and affect. Skin - Warm with dry skin with areas of scale Objective Data Vital Signs Vital Signs: Vital Signs - 24 hr 06/17/24 13:44 06/17/24 13:44 06/17/24 13:54 Temperature Pulse Rate 82 80 Respiratory Rate 20 20 Blood Pressure Pulse Oximetry 95 Oxygen Delivery Nasal Cannula Oxygen Flow Rate 3 Fraction of Inspired Oxygen 06/17/24 14:00 06/17/24 20:17 06/17/24 20:30 Temperature 98.1 F 98.2 F Pulse Rate 60 85 87 Respiratory Rate 20 20 20 Blood Pressure 103/61 127/84 Pulse Oximetry 95 94 Oxygen Delivery Oxygen Flow Rate Fraction of Inspired Oxygen 06/17/24 20:46 06/17/24 21:02 06/17/24 22:00 Temperature 98.7 F Pulse Rate 81 96 Respiratory Rate 20 18 Blood Pressure 133/59 L Pulse Oximetry 96 80 L Oxygen Delivery Nasal Cannula Oxygen Flow Rate 3 Fraction of Inspired Oxygen 06/17/24 21:32 06/18/24 02:10 06/18/24 02:17 Temperature Pulse Rate 70 70 Respiratory Rate 20 20 20 Blood Pressure Pulse Oximetry 94 Oxygen Delivery Nasal Cannula Oxygen Flow Rate 3 Fraction of Inspired Oxygen 06/18/24 06:00 06/18/24 07:37 06/18/24 07:37 Temperature 97.1 F L Pulse Rate 70 70 Respiratory Rate 20 20 Blood Pressure 136/54 L Pulse Oximetry 100 98 Oxygen Delivery Nasal Cannula Oxygen Flow Rate 4 Fraction of Inspired Oxygen 06/18/24 08:50 06/18/24 09:29 Temperature Pulse Rate 74 Respiratory Rate Blood Pressure Pulse Oximetry 95 Oxygen Delivery Nasal Cannula Oxygen Flow Rate 2 Fraction of Inspired Oxygen Intake/Output Intake/Output: Intake & Output 06/15/24 06/16/24 06/17/24 06/18/24 23:59 23:59 23:59 23:59 Intake Total 50 1090 1720 360 Output Total 100 300 600 350 Balance -50 790 1120 10 Meds/Results Medications: Active Medications Generic Name Dose Route Start Last Admin Trade Name Freq PRN Reason Stop Dose Admin Acetaminophen 650 mg 06/15/24 14:43 Acetaminophen 325 Mg Tablet PO Q4H PRN Mild Pain (1-3) or Fever Hydrocodone Bitart/Acetaminophen 1 tab 06/15/24 14:43 06/15/24 20:06 Hydrocodone/Acetaminophen (*Crx) 5-325 Mg Tablet PO 1 tab Q4H PRN Administration Pain Rated 4-6 Albuterol/Ipratropium 3 ml 06/15/24 20:00 06/18/24 07:36 Ipratropium 0.5 Mg/Albuterol Sulfate 2.5 Mg Ampul.Neb 3 Ml INHALATION 3 ml Q6HRT NAZANIN Administration Amoxicillin/Clavulanate Potassium 1 tablet 06/17/24 21:00 06/18/24 09:27 Amoxicillin/Clavulanate K 875-125 Mg Tab PO 06/21/24 21:01 1 tablet Q12HR NAZANIN Administration Azithromycin 250 mg 06/18/24 09:00 06/18/24 09:27 Azithromycin 250 Mg Tablet PO 06/19/24 09:01 250 mg DAILY NAZANIN Administration Budesonide 0.5 mg 06/16/24 08:00 06/18/24 07:36 Budesonide Respule Neb 0.5 Mg/2 Ml Amp INHALATION 0.5 mg Q12HRT NAZANIN Administration Clonidine HCl 0.1 mg 06/15/24 21:00 06/18/24 09:28 Clonidine Hcl 0.1 Mg Tablet PO 0.1 mg Q12HR NAZANIN Administration Cyanocobalamin 500 mcg 06/16/24 09:00 06/18/24 09:28 Cyanocobalamin 500 Mcg Tablet PO 500 mcg DAILY NAZANIN Administration Diclofenac Sodium 1 applic 06/15/24 20:19 06/17/24 21:23 Diclofenac Sodium 1% 100 Gm Gel (*Bkc) TOPICAL 1 applic Q12H PRN Administration Pain Diltiazem HCl 120 mg 06/16/24 09:00 06/18/24 09:28 Diltiazem Hcl Cd 120 Mg Cap.24hr PO 120 mg QAM NAZANIN Administration Duloxetine HCl 60 mg 06/15/24 21:00 06/18/24 09:30 Duloxetine Hcl 60 Mg Capsule.Dr PO 60 mg Q12HR NAZANIN Administration Fluticasone Propionate 1 spray 06/15/24 21:00 06/18/24 09:31 Fluticasone Propionate 0.05% Na Spr 16 Gm Btl (*Bkc) NASAL 1 spray Q12HR NAZANIN Administration Gabapentin 600 mg 06/15/24 21:00 06/18/24 09:29 Gabapentin 300 Mg Capsule PO 600 mg Q12HR NAZANIN Administration Loratadine 10 mg 06/15/24 21:00 06/17/24 21:21 Loratadine 10 Mg Tablet PO 10 mg HS NAZANIN Administration Magnesium Hydroxide 30 ml 06/15/24 20:19 Magnesium Hydroxide Susp 30 Ml Udc PO DAILY PRN Constipation Metoprolol Succinate 25 mg 06/16/24 09:00 06/18/24 09:29 Metoprolol Succinate Ext Rel 25 Mg Tabcr PO 25 mg QAM NAZANIN Administration Miconazole Nitrate 1 applic 06/16/24 11:00 06/18/24 09:30 Miconazole 2% Antifungal Ointment 56 Gm TOPICAL 1 applic Q12HR NAZANIN Administration Mirtazapine 7.5 mg 06/15/24 21:00 06/17/24 21:22 Mirtazapine 7.5 Mg Tablet PO 7.5 mg HS NAZANIN Administration Nystatin 5 ml 06/15/24 21:00 06/18/24 09:30 Nystatin 100,000 Units/Ml Susp 5 Ml Oral.Susp PO 5 ml QID NAZANIN Administration Pantoprazole Sodium 40 mg 06/16/24 09:00 06/18/24 09:30 Pantoprazole 40 Mg Tablet PO 40 mg QAM NAZANIN Administration Polyethylene Glycol 17 gm 06/16/24 09:00 06/17/24 12:31 Polyethylene Glycol 3350 17 Gm Powd.Pack PO Not Given DAILY [facility] Prednisone 5 mg 06/18/24 08:00 06/18/24 09:27 Prednisone 5 Mg Tablet PO 06/24/24 08:01 5 mg DAILY@0800 NAZANIN Administration Prednisone 2.5 mg 06/25/24 08:00 Prednisone 2.5 Mg Tablet PO 07/01/24 08:01 DAILY@0800 [facility] Pregabalin 75 mg 06/15/24 21:00 06/18/24 09:29 Pregabalin (*Crx) 75 Mg Capsule PO 75 mg Q12HR NAZANIN Administration Promethazine HCl 12.5 mg 06/15/24 14:43 Promethazine Hcl 25 Mg/Ml Ampul IV PUSH Q6H PRN Nausea Senna/Docusate Sodium 1 tab 06/16/24 09:00 06/18/24 09:29 Senna/Docusate Sodium Tablet PO 1 tab BID NAZANIN Administration Spironolactone 25 mg 06/16/24 09:00 06/18/24 09:30 Spironolactone 25 Mg Tablet PO 25 mg QAM NAZANIN Administration Tolnaftate 1 applic 06/15/24 21:00 06/18/24 09:34 Tolnaftate 1% Powder 45 Gm Btl TOPICAL 1 applic Q12HR NAZANIN Administration Tramadol HCl 50 mg 06/15/24 22:00 06/18/24 06:05 Tramadol Hcl (*Crx) 50 Mg Tablet PO 50 mg Q8HR NAZANIN Administration Vitamin D 5,000 units 06/16/24 09:00 06/18/24 09:28 Cholecalciferol 5,000 Units Tablet BY MOUTH 5,000 units DAILY NAZANIN Administration Radiology Results: ITS Impressions Chest X-Ray 06/15/24 12:29 IMPRESSION: 1. Airspace opacities in the lower lung zones, consistent with atelectasis versus pneumonia. Head CT 06/16/24 14:41 IMPRESSION: 1. 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 No acute intercranial process. 2. Minimal left and large right mastoid effusions. Neck/Chest CT 06/16/24 14:43 IMPRESSION: 1. No etiology for the patient's symptoms. Labs Labs: Laboratory Results - last 24 hr 06/17/24 11:10 Influenza A (RT-PCR) Negative Influenza B (RT-PCR) Negative RSV (RT-PCR) Negative SARS-CoV-2 RNA (RT-PCR) Negative
[2024-06-18] MEDS: polyethylene glycoL 3350 17 GM POWD.PACK PO (12:38)
[2024-06-18 16:18] LABS: Lactic Acid Reflex 2.3 mmol/L (0.7-2.0)
[2024-06-18 19:06] LABS: Reflex Lactic Acid Yes or No Add Lactic
[2024-06-18] MEDS: DICLOFENAC SODIUM 1% 100 GM GEL (*BKC) 1 APPLIC TOPICAL (21:17)
[2024-06-18] MEDS: LORATADINE 10 MG TABLET PO (21:18)
[2024-06-18] MEDS: MIRTAZAPINE 7.5 MG TABLET PO (21:18)
[2024-06-18 21:23] LABS: Lactic Acid 2.5 mmol/L (0.7-2.0)
[2024-06-19] VITALS (14 sets, daily range): BP systolic 130–150; BP diastolic 58–73; PULSE 64–83; RESP 16–22; TEMP 36.6–36.7; O2SAT 94–98
[2024-06-19] MEDS: IPRATROPIUM 0.5 MG/ALBUTEROL SULFATE 2.5 MG AMPUL.NEB 3 ML INHALATION ×4 (03:04→19:57)
[2024-06-19] MEDS: traMADol HCL (*CRX) 50 MG TABLET PO ×2 (05:59→13:45)
[2024-06-19 06:33] LABS: Albumin Level 3.3 g/dL (3.5-5.1); Blood Urea Nitrogen 22 mg/dL (7-17); Calcium 9.5 mg/dL (8.4-10.2); Carbon Dioxide > 40 mmol/L (22-30); Chloride 95 mmol/L (98-107); Estimated CRCL calculation 100 ml/min; Estimated Glomerular Filt Rate > 60; Glucose 205 mg/dL (65-110); Phosphorus 4.4 mg/dL (2.5-4.5); Potassium 4.3 mmol/L (3.4-5.0); Sodium 137 mmol/L (137-145)
[2024-06-19] MEDS: BUDESONIDE RESPULE NEB 0.5 MG/2 ML AMP INHALATION ×2 (08:27→20:02)
[2024-06-19] MEDS: AZITHROMYCIN 250 MG TABLET PO (09:24)
[2024-06-19] MEDS: AMOXICILLIN/CLAVULANATE K 875-125 MG TAB 1 TABLET PO ×2 (09:24→20:56)
[2024-06-19] MEDS: cloNIDine HCL 0.1 MG TABLET PO ×2 (09:24→20:54)
[2024-06-19] MEDS: DULoxetine HCL 60 MG CAPSULE.DR PO ×2 (09:24→20:54)
[2024-06-19] MEDS: PANTOPRAZOLE 40 MG TABLET PO (09:24)
[2024-06-19] MEDS: SPIRONOLACTONE 25 MG TABLET PO (09:24)
[2024-06-19] MEDS: predniSONE 5 MG TABLET PO (09:24)
[2024-06-19] MEDS: CHOLECALCIFEROL 5,000 UNITS TABLET 5000 UNITS BY MOUTH (09:24)
[2024-06-19] MEDS: dilTIAZem HCL CD 120 MG CAP.24HR PO (09:25)
[2024-06-19] MEDS: GABAPENTIN 300 MG CAPSULE 600 MG PO ×2 (09:25→20:53)
[2024-06-19] MEDS: METOPROLOL SUCCINATE EXT REL 25 MG TABCR PO (09:25)
[2024-06-19] MEDS: CYANOCOBALAMIN 500 MCG TABLET PO (09:25)
[2024-06-19] MEDS: PREGABALIN (*CRX) 75 MG CAPSULE PO ×2 (09:25→20:56)
[2024-06-19] MEDS: TOLNAFTATE 1% POWDER 45 GM BTL 1 APPLIC TOPICAL ×2 (09:26→20:56)
[2024-06-19] MEDS: NYSTATIN 100,000 UNITS/ML SUSP 5 ML ORAL.SUSP PO ×4 (09:26→21:00)
[2024-06-19] MEDS: FLUTICASONE PROPIONATE 0.05% NA SPR 16 GM BTL (*BKC) 1 SPRAY NASAL ×2 (09:27→20:56)
--- NOTE | 2024-06-19 10:19 | PCNFU ---
Nutrition Follow-Up Complete: Increased Protein needs as related to wounds as evidenced by pressure ulcers reported. Goal: Meet estimated nutritional needs. Patient is progressing towards goal. We will continue current goal. Pt current nutrition is Heart Healthy/Minced and Moist, Level 5 with Mild Thick liquids, Level 2. Last recorded weight is 112.3 kg, up from 106.3 kg on admit. Bowel Motility: +BM reported 06/18 Labs Reviewed: Glu 205, Cr 0.5,K 3.3 Meds Noted: Prednisone,Vit B12, Vit D, Remeron. Skin: stage III pressure ulcer-buttock. Additional Notes: Patient seen by speech therapy 06/16, at this time diet has been ordered as Minced and Moist, Level 5 with Mild Thick liquids,Level 2. Patient is consuming minced foods and thickened liquids well > 75% of most meals. Breakfast not as much today. 100% of pancakes with OJ and some of her Hugo supplement. Diet supplements remain ordered for Hugo BID and Ensure Compact BID for additional would healing and protein needs. Agree with diet orders at this time. Will monitor weight, labs, skin, oral intake, meds, every 3 days.
--- NOTE | 2024-06-19 12:42 | PM.PNPUL ---
Progress Note: A&P Assessment and Plan (1) Acute and chronic respiratory failure with hypercapnia: Code(s): J96.22 - Acute and chronic respiratory failure with hypercapnia Status: Acute Assessment and Plan: This 74-year-old female has cognitive disability, minimal ability to communicate, and inability to provide any history regarding her presenting symptoms. As during her recent hospitalization, she again presented with shortness of breath, worsening hypercapnic respiratory failure, and evidence of unchanged chest X-ray with chronic right lower lobe partial atelectasis and an elevated right hemidiaphragm, mild leukocytosis, and wheezing in the upper chest observed during my exam earlier yesterday. The radiographic studies do not support a diagnosis of severe health care-associated pneumonia. Elevated lactic acid could be related to wheezing and increased load on respiratory muscles. The patient seems to be responding to treatment with nebulized short-acting bronchodilators, antibiotics, and vest treatment. She is still on a tapering prednisone regimen. The patient appears to have weak respiratory muscles, which, in conjunction with her cognitive function, promote bronchial secretion retention with frequent respiratory infections. The diagnosis of asthma is questionable, but this needs to be kept in mind now that the patient is on a tapering steroid regimen. She has a chronically elevated right hemidiaphragm, which may also contribute to bronchial secretion retention and hypoxemia at night. The patient cannot perform pulmonary function testing. During her last hospitalization, a video swallow study was also problematic as the patient could not perform it. This patient presents quite a few challenges in terms of keeping her out of the hospital. Chest CT done yesterday again showed chronically elevated right hemidiaphragm and some infiltrates at both bases related to atelectasis. There is no clear-cut evidence of pneumonia. Retesting for viruses again negative 06/18/24: Plan:Continue with the current regimen of antibiotics, nebulized short-acting bronchodilators, prednisone regimen, and vest therapy. 06/19/24: Patient tells me she is short of breath at rest. When I asked her how long she has been short of breath she says for years. Patient tells me she is at her baseline. Currently she is on her baseline of 2 L nasal cannula saturations 98%. creatinine 0.5. Regarding her prednisone taper, she is on day 2 of prednisone 5 mg. patient has rhonchorous breath sounds and a poor cough with inability to clear her secretions effectively. Today is day 5 of azithromycin. Etiology of patient's chronic respiratory issues include: Possible asthma, morbid obesity, elevated right hemidiaphragm, poor cough with inability to clear secretions, and possible aspiration. will continue aggressive treatment for asthma with nebulized medicines. of note she has never had wheezing and would continue with prednisone taper over the next 12 days. otherwise patient has a number of problems which are not readily reversible. Plan: From a pulmonary perspective patient is ready to be discharged back to her facility on these pulmonary medicines. Prednisone 5 mg p.o. q.day through 06/24/2024. Then prednisone 2.5 mg q.day from 06/25 through 07/01/2024. Then off. Budesonide 0.5 mg nebulized b.i.d. DuoNebs 2.5 mg- 0.5 mg nebulized q.i.d. Oxygen per facilities protocol. Currently the patient is on 2 L nasal cannula saturations 98%. Guaifenesin 1200 mg p.o. b.i.d. Discussed with Dr. Dutta. Will sign off. Call with questions. Subjective Date/time seen: 06/19/24 12:42 Interval history: 06/18/24: Patient again answered that she does not feel good. No other specific complaints. She has been on treatment with antibiotics short-acting bronchodilators presumably for lower respiratory tract infection. She underwent chest CT yesterday. 06/19/24: Patient tells me she is short of breath at rest. When I asked her how long she has been short of breath she says for years. Patient tells me she is at her baseline. Currently she is on her baseline of 2 L nasal cannula saturations 98%. creatinine 0.5. Regarding her prednisone taper, she is on day 2 of prednisone 5 mg. patient has rhonchorous breath sounds and a poor cough with inability to clear her secretions effectively. 06/16/24: EXAMINATION: CT soft tissue neck chest w DATE: 06/16/2024 14:37 INDICATION: Neck swelling. TECHNIQUE: Computed tomography (CT) of the neck and chest was performed with 75 mL Omnipaque-350 intravenous contrast. Automated exposure control and iterative reconstruction technique were employed. The dose-length product was 1120.88 mGy-cm. COMPARISON: neck and chest CT 06/01/24 FINDINGS: CT NECK: There is no lymphadenopathy. There is plaque in the proximal internal carotids arteries with less than 50% stenosis relative to normal distal artery lumen diameters. There are likely changes of ocular lens replacement surgeries. There is severe cervical spondylosis. CT CHEST: The lungs demonstrate mild atelectasis. Calcified pulmonary nodules and calcified hilar lymph nodes are consistent with old granulomatous disease. No pleural effusion. The heart size is normal. No pericardial effusion. There is a benign bone island in left femoral head. There is mild thoracic spondylosis. There are chronic compression fractures of T5 and T10. IMPRESSION: 1. No etiology for the patient's symptoms. Review of Systems Constitutional: Constitutional: Reports no additional constitutional complaints Eyes: Eyes: Reports no additional eye complaints ENT: Reports system reviewed and no additional complaints, except as documented Cardiovascular: Cardiovascular: Reports no additional cardiovascular complaints Respiratory: Respiratory: Reports no additional respiratory complaints Gastrointestinal: Gastrointestinal: Reports no additional gastrointestinal complaints Musculoskeletal: Musculoskeletal: Reports no additional musculoskeletal complaints Neurologic: Reports system reviewed and no additional complaints, except as documented Psychiatric: Psychiatric: Reports no additional psychiatric complaints Endocrine: Endocrine: Reports no additional endocrine complaints Hematologic/Lymphatic: Hematologic/Lymphatic: Reports no additional hematologic/lymphatic complaints Allergic/Immunologic: Allergic/Immunologic: Reports no additional allergic/immunologic complaints Exam Const: General: cooperative and comfortable Orientation/consciousness: oriented to person, oriented to place and oriented to time HENMT: Head: normal to inspection Ears: hearing grossly normal bilaterally Eyes: General: appearance normal, both eyes and all related structures Neck: Neck: normal visual inspection Chest: Chest palpation & inspection: normal inspection of the chest Resp: Effort & Inspection: normal respiratory effort and able to speak in complete sentences Auscultation: no crackles, no rales, rhonchi, no wheezes and lung sounds not diminished Cardio: Jugular venous distension: no JVD GI: Inspection: normal to inspection GI Palp: No abdominal tenderness Skin: General skin exam: normal color Neuro: Other: Unable to provide a reliable history. Extrem: General: normal to inspection Psych: Appearance: grossly normal Objective Data Vital Signs Vital Signs: Vital Signs - 24 hr 06/18/24 13:47 06/18/24 14:00 06/18/24 14:00 Temperature 37.0 C Pulse Rate 84 85 85 Respiratory Rate 20 20 16 Blood Pressure 144/72 H Pulse Oximetry 95 Oxygen Delivery Oxygen Flow Rate 06/18/24 20:59 06/18/24 21:00 06/18/24 21:14 Temperature Pulse Rate 80 83 Respiratory Rate 20 20 Blood Pressure Pulse Oximetry 94 Oxygen Delivery Nasal Cannula Oxygen Flow Rate 2 06/18/24 21:56 06/18/24 21:25 06/19/24 03:06 Temperature 36.7 C Pulse Rate 80 80 Respiratory Rate 12 20 Blood Pressure 141/65 H Pulse Oximetry 100 100 Oxygen Delivery Nasal Cannula Oxygen Flow Rate 2 06/19/24 03:20 06/19/24 05:51 06/19/24 08:31 Temperature 36.6 C Pulse Rate 81 72 Respiratory Rate 20 16 Blood Pressure 130/58 L Pulse Oximetry 98 98 Oxygen Delivery Nasal Cannula Oxygen Flow Rate 2 06/19/24 08:31 06/19/24 08:52 06/19/24 09:23 Temperature Pulse Rate 69 76 70 Respiratory Rate 20 20 Blood Pressure 150/73 H Pulse Oximetry 95 Oxygen Delivery Oxygen Flow Rate 06/19/24 09:25 06/19/24 09:20 Temperature Pulse Rate 70 Respiratory Rate Blood Pressure Pulse Oximetry 95 Oxygen Delivery Nasal Cannula Oxygen Flow Rate 2 Intake/Output Intake/Output: Intake & Output 06/16/24 06/17/24 06/18/24 06/19/24 23:59 23:59 23:59 23:59 Intake Total 1090 1720 720 240 Output Total 300 600 350 Balance 790 1120 370 240 Meds/Results Medications: Active Medications Generic Name Dose Route Start Last Admin Trade Name Freq PRN Reason Stop Dose Admin Acetaminophen 650 mg 06/15/24 14:43 Acetaminophen 325 Mg Tablet PO Q4H PRN Mild Pain (1-3) or Fever Hydrocodone Bitart/Acetaminophen 1 tab 06/15/24 14:43 06/15/24 20:06 Hydrocodone/Acetaminophen (*Crx) 5-325 Mg Tablet PO 1 tab Q4H PRN Administration Pain Rated 4-6 Albuterol/Ipratropium 3 ml 06/15/24 20:00 06/19/24 08:27 Ipratropium 0.5 Mg/Albuterol Sulfate 2.5 Mg Ampul.Neb 3 Ml INHALATION 3 ml Q6HRT NAZANIN Administration Amoxicillin/Clavulanate Potassium 1 tablet 06/17/24 21:00 06/19/24 09:24 Amoxicillin/Clavulanate K 875-125 Mg Tab PO 06/21/24 21:01 1 tablet Q12HR NAAZNIN Administration Budesonide 0.5 mg 06/16/24 08:00 06/19/24 08:27 Budesonide Respule Neb 0.5 Mg/2 Ml Amp INHALATION 0.5 mg Q12HRT NAZANIN Administration Clonidine HCl 0.1 mg 06/15/24 21:00 06/19/24 09:24 Clonidine Hcl 0.1 Mg Tablet PO 0.1 mg Q12HR NAZANIN Administration Cyanocobalamin 500 mcg 06/16/24 09:00 06/19/24 09:25 Cyanocobalamin 500 Mcg Tablet PO 500 mcg DAILY NAZANIN Administration Diclofenac Sodium 1 applic 06/15/24 20:19 06/18/24 21:17 Diclofenac Sodium 1% 100 Gm Gel (*Bkc) TOPICAL 1 applic Q12H PRN Administration Pain Diltiazem HCl 120 mg 06/16/24 09:00 06/19/24 09:25 Diltiazem Hcl Cd 120 Mg Cap.24hr PO 120 mg QAM NAZANIN Administration Duloxetine HCl 60 mg 06/15/24 21:00 06/19/24 09:24 Duloxetine Hcl 60 Mg Capsule.Dr PO 60 mg Q12HR NAZANIN Administration Fluticasone Propionate 1 spray 06/15/24 21:00 06/19/24 09:27 Fluticasone Propionate 0.05% Na Spr 16 Gm Btl (*Bkc) NASAL 1 spray Q12HR NAZANIN Administration Gabapentin 600 mg 06/15/24 21:00 06/19/24 09:25 Gabapentin 300 Mg Capsule PO 600 mg Q12HR NAZANIN Administration Loratadine 10 mg 06/15/24 21:00 06/18/24 21:18 Loratadine 10 Mg Tablet PO 10 mg HS NAZANIN Administration Magnesium Hydroxide 30 ml 06/15/24 20:19 Magnesium Hydroxide Susp 30 Ml Udc PO DAILY PRN Constipation Metoprolol Succinate 25 mg 06/16/24 09:00 06/19/24 09:25 Metoprolol Succinate Ext Rel 25 Mg Tabcr PO 25 mg QAM NAZANIN Administration Miconazole Nitrate 1 applic 06/16/24 11:00 06/19/24 09:26 Miconazole 2% Antifungal Ointment 56 Gm TOPICAL 1 applic Q12HR NAZANIN Administration Mirtazapine 7.5 mg 06/15/24 21:00 06/18/24 21:18 Mirtazapine 7.5 Mg Tablet PO 7.5 mg HS NAZANIN Administration Nystatin 5 ml 06/15/24 21:00 06/19/24 09:26 Nystatin 100,000 Units/Ml Susp 5 Ml Oral.Susp PO 5 ml QID NAZANIN Administration Pantoprazole Sodium 40 mg 06/16/24 09:00 06/19/24 09:24 Pantoprazole 40 Mg Tablet PO 40 mg QAM NAZANIN Administration Polyethylene Glycol 17 gm 06/16/24 09:00 06/19/24 09:19 Polyethylene Glycol 3350 17 Gm Powd.Pack PO Not Given DAILY [facility] Prednisone 5 mg 06/18/24 08:00 06/19/24 09:24 Prednisone 5 Mg Tablet PO 06/24/24 08:01 5 mg DAILY@0800 NAZANIN Administration Prednisone 2.5 mg 06/25/24 08:00 Prednisone 2.5 Mg Tablet PO 07/01/24 08:01 DAILY@0800 [facility] Pregabalin 75 mg 06/15/24 21:00 06/19/24 09:25 Pregabalin (*Crx) 75 Mg Capsule PO 75 mg Q12HR [facility] Administration Promethazine HCl 12.5 mg 06/15/24 14:43 Promethazine Hcl 25 Mg/Ml Ampul IV PUSH Q6H PRN Nausea Senna/Docusate Sodium 1 tab 06/16/24 09:00 06/19/24 09:19 Senna/Docusate Sodium Tablet PO Not Given BID [facility] Spironolactone 25 mg 06/16/24 09:00 06/19/24 09:24 Spironolactone 25 Mg Tablet PO 25 mg QAM [facility] Administration Tolnaftate 1 applic 06/15/24 21:00 06/19/24 09:26 Tolnaftate 1% Powder 45 Gm Btl TOPICAL 1 applic Q12HR [facility] Administration Tramadol HCl 50 mg 06/15/24 22:00 06/19/24 05:59 Tramadol Hcl (*Crx) 50 Mg Tablet PO 50 mg Q8HR [facility] Administration Vitamin D 5,000 units 06/16/24 09:00 06/19/24 09:24 Cholecalciferol 5,000 Units Tablet BY MOUTH 5,000 units DAILY [facility] Administration Radiology Results: ITS Impressions Chest X-Ray 06/15/24 12:29 IMPRESSION: 1. Airspace opacities in the lower lung zones, consistent with atelectasis versus pneumonia. Head CT 06/16/24 14:41 IMPRESSION: 1. 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 No acute intercranial process. 2. Minimal left and large right mastoid effusions. Neck/Chest CT 06/16/24 14:43 IMPRESSION: 1. No etiology for the patient's symptoms. Labs Labs: Laboratory Results - last 24 hr 06/18/24 06/18/24 06/19/24 16:04 21:03 05:49 Sodium 137 Potassium 4.3 Chloride 95 L Carbon Dioxide > 40 H Anion Gap BUN 22 H Creatinine 0.50 L Estim Creat Clear Calc 100 Estimated GFR > 60 Glucose 205 H Lactic Acid 2.3 H 2.5 H Calcium 9.5 Phosphorus 4.4 Albumin 3.3 L
--- NOTE | 2024-06-19 13:46 | PM.DS ---
DS: Admitting Diagnosis Discharge Date 06/19/24 Admitting Diagnosis Shortness of breath DS: Discharge Diagnosis Discharge Diagnosis (1) Acute and chronic respiratory failure with hypercapnia: Code(s): J96.22 - Acute and chronic respiratory failure with hypercapnia Status: Acute (2) Pneumonia: Qualifiers: Aspiration pneumonia type: unspecified Laterality: unspecified laterality Lung location: unspecified part of lung Pneumonia type: aspiration pneumonia Qualified Code(s): J69.0 - Pneumonitis due to inhalation of food and vomit Code(s): J18.9 - Pneumonia, unspecified organism Status: Acute (3) Sepsis: Code(s): A41.9 - Sepsis, unspecified organism Status: Acute (4) UTI (urinary tract infection): Code(s): N39.0 - Urinary tract infection, site not specified Status: Acute (5) Lactic acidosis: Code(s): E87.20 - Acidosis, unspecified Status: Acute (6) Neck pain: Code(s): M54.2 - Cervicalgia Status: Acute DS: Summary Hospital Course Reason for hospitalization: 74yo female with anxiety/depression, atrial flutter, chronic pain syndrome, footdrop, GERD, TBI, and SVT here for shortness of breath. Please see H&P for details. Hospital Course: Patient presented with SOB from the assisted. CXR showing airspace opacities in the lower lung zones, consistent with atelectasis versus pneumonia. Influenza, COVID and RSV negative. ABG 7.35/65.5/66 on 3L. Repeat ABG 7.35/59/90 on 3L. Patient met criteria for sepsis with elevated RR, lactic acidosis and WBC. Lactic acid: 3.2-> 4.2 -> 2.5. Procalcitonin 0. WBC 13K -> normal. Unable to give sepsis bolus due to volume overload, but started at 75 mL/hour. Started on ceftriaxone, azithromycin, and clindamycin due to concern for aspiration pneumonia. MRSA PCR negative. CT chest showing mild atelectasis, old granulomatous disease but not PNA. Consider bronchitis vs aspiration vs asthma exacerbation vs hypoventilation 2/2 obesity. Duonebs, Mucinex and Abx ordered. CPT ordered. Speech therapy evaluation showing patient tolerating current diet but can not exclude aspiration since she can not have a MBS. We continued minced/moist and mildly thickened liquid diet. Pulmonology consulted and appreciate their input. No obvious PNA. Abx for bronchitis. She was on a prednisone taper prior to admission which we continued. BCx NGTD. UCx growing Enterococcus that was sharp-sensitive. Patient complains of sore throat and neck pain. Group A strep negative. CT neck showing no acute findings. She overall did well and was able to be discharged back to the assisted on 06/19/24. Spoke with family about hospital course and followup care. Also discussed hospice as an option and he would like more information about this. Will have hospice consult when patient returns to the assisted. Discuss with pulmonary as well. Status at Discharge Cognitive/behavioral status at discharge: stable Time Spent with Patient Time attestation: Total time spent providing and/or coordinating discharge services: 38 minutes Time spent: Greater than 30 minutes Exam Narrative: AF 98.0 150/73 70 20 95% 2L Gen - NARD Chest - coarse breath sounds anteriorly; nml RR. CV - RRR S1/S2 Abd - Soft, obese, +BS. mildly distended and tympanitic but no guarding. Ext - 1+ pedal edema Neuro - Alert but confused. Bilateral chronic plantar flexion contractions Psych - Nml mood and affect. Skin - Warm with dry skin with areas of scale DS: Data Data Completed and Pending Labs on day of discharge: Labs from last 24 hours 06/19/24 06/18/24 06/18/24 05:49 21:03 16:04 Sodium 137 Potassium 4.3 Chloride 95 L Carbon Dioxide > 40 H Anion Gap BUN 22 H Creatinine 0.50 L Estim Creat Clear Calc 100 Estimated GFR > 60 Glucose 205 H Lactic Acid 2.5 H 2.3 H Calcium 9.5 Phosphorus 4.4 Albumin 3.3 L Preliminary micro results at discharge 06/15/24 11:55 Blood Culture - Preliminary Blood 06/15/24 11:55 Blood Culture - Preliminary Blood Discharge Plan Discharge Attending physician on discharge: Aaron Dutta Consulting providers: Mayito Clement Discharging Clinician: Aaron Dutta Anticipated Discharge Date/Time: 06/19/24 14:00 Patient Disposition: NH Nursing Home/Asst Living Activity: as tolerated Diet: other - see discharge instructions Discharge Instructions: Heart healthy minced and moist Level 5 diet with Level 2 thickened liquids Continue Ensure supplements and Hugo BID Take precautions to avoid falls. Up to the chair for meals. Assist with eating Aspiration Precautions Crush medications Avoid NSAIDs (ibuprofen, naproxen, Aleve). Tylenol is safe to take. Oxygen at 2L. Wean oxygen as tolerated to kep SpO2 >93%. Follow-up with the provider at the facility. As requested, please provide family with information about hospice. Thank you for using [facility] for your health care needs. Patient Instructions: Antibiotic Form Stand Alone Forms: General Discharge Information Follow-up/Referrals: Tobi Sebastian MD [Primary Care Provider] - Call for Appointment Discharge Medications: New amoxicillin-pot clavulanate 875-125 mg tablet 1 tablet PO Q12H Qty: 5 0RF Continued polyethylene glycol 3350 [Gavilax] 17 gram Powder In Packet 17 g PO DAILY sennosides-docusate sodium 8.6-50 mg Tablet 1 tab-cap PO BID tramadol 50 mg Tablet 50 mg PO TID acetaminophen [Acetaminophen Extra Strength] 500 mg Tablet 1,000 mg PO Q6H PRN (Reason: Pain) magnesium hydroxide [Milk of Magnesia] 400 mg/5 mL Suspension 30 ml PO DAILY PRN (Reason: Constipation) cyanocobalamin (vitamin B-12) [Vitamin B-12] 500 mcg Tablet 500 mcg PO DAILY duloxetine 60 mg Capsule,Delayed Release(Dr/Ec) 60 mg PO Q12H pregabalin [Lyrica] 75 mg Capsule 75 mg PO Q12H diltiazem HCl 120 mg Capsule,Extended Release 24 Hr 120 mg PO QAM Qty: 30 0RF pantoprazole 40 mg Tablet,Delayed Release (Dr/Ec) 40 mg PO QAM Qty: 30 0RF metoprolol succinate [Toprol XL] 25 mg Tablet Extended Release 24 Hr 25 mg PO QAM Qty: 30 0RF diclofenac sodium 1 % gel 1 ea TOPICAL Q12H PRN (Reason: Pain) Rx Instructions: apply to coccyx clonidine HCl 0.1 mg tablet 0.1 mg PO Q12H gabapentin 600 mg tablet 600 mg PO Q12H cetirizine 10 mg Tablet 10 mg PO HS nystatin 100,000 unit/gram powder 1 applic TOPICAL PRN PRN (Reason: Rash) Rx Instructions: apply to armpits and folds cholecalciferol (vitamin D3) 125 mcg (5,000 unit) Capsule 125 mcg PO DAILY mirtazapine 7.5 mg tablet 7.5 mg PO HS budesonide [Pulmicort] 0.5 mg/2 mL Suspension For Nebulization 0.5 mg inhalation Q12HRT Qty: 60 0RF guaifenesin [Mucus Relief ER] 600 mg Tablet Extended Release 12hr 1,200 mg PO Q12HR Qty: 30 0RF spironolactone 25 mg Tablet 25 mg PO QAM Qty: 30 0RF ipratropium-albuterol 0.5 mg-3 mg(2.5 mg base)/3 mL Solution For Nebulization 3 ml INHALATION QID Qty: 180 0RF guanfacine 1 mg tablet extended release 24 hr 1 mg PO BID fluticasone propionate 50 mcg/actuation spray,suspension 1 spray intranasal Q12HR prednisone 5 mg Tablet 5 mg PO DAILY@0800 Qty: 7 0RF Rx Instructions: Take 5 mg daily for 7 days (06/18-06/24) prednisone 2.5 mg Tablet 2.5 mg PO DAILY@0800 Qty: 7 0RF Rx Instructions: Take 2.5 mg daily for 7 days (06/25-07/01) Discontinued ibuprofen 600 mg Tablet 600 mg PO Q6H PRN (Reason: Pain) nystatin 100,000 unit/mL suspension 5 ml PO QID ramelteon 8 mg tablet 8 mg PO HS prednisone 2.5 mg Tablet 7.5 mg PO DAILY@0800 Qty: 21 0RF Rx Instructions: Take 7.5 mg for 7 days (06/11-06/17) Date of admission: 06/16/24 09:35 Primary Care Provider: Tobi Sebastian Admitting Provider: Lance Velez Attending physician on admission: Lance Velez Condition: Stable Hospitalist MIPS Heart Failure (Exclusion) Patient has history of Heart Transplant or Left Ventricular Assistive Device?: No IF YES, STOP HERE Heart Failure (Qualifier) Patient has current or prior documentation of LVEF less than or equal to 40%, or mod/servere depressed LVSF?: No IF NO, STOP HERE
[2024-06-19] MEDS: MIRTAZAPINE 7.5 MG TABLET PO (20:54)
[2024-06-19] MEDS: LORATADINE 10 MG TABLET PO (20:54)
== END 2024-06-19 21:08 | DRG 641 ==
LOC: ANHED 12:19 → ANH2MED 15:42
PROVIDERS: Internal Medicine Pulmonary Disease; Student in an Organized Health Care Education/Training Program; Admitting Provider General Practice; Emergency Provider Emergency Medicine; PCP Family Medicine; Visit Provider Internal Medicine
DX: E87.20 Acidosis, unspecified (principal); J96.12 Chronic respiratory failure with hypercapnia; J20.9 Acute bronchitis, unspecified; E66.01 Morbid (severe) obesity due to excess calories; J45.909 Unspecified asthma, uncomplicated; K21.9 Gastro-esophageal reflux disease without esophagitis; K59.09 Other constipation; G89.4 Chronic pain syndrome; F41.9 Anxiety disorder, unspecified; F32.A Depression, unspecified; Z11.52 Encounter for screening for COVID-19; Z87.820 Personal history of traumatic brain injury; Z99.3 Dependence on wheelchair; B95.2 Enterococcus as the cause of diseases classified elsewhere
CPT/HCPCS: 36415; 36600; 70450; 70491; 71045; 71260; 80048; 80053; 80069; 81001; 82375; 82805; 82810; 83050; 83605; 83735; 83880; 84100; 84145; 84484; 85025; 85027; 85610; 85730; 87040; 87077; 87086; 87088; 87181; 87637; 87641; 87651; 92610; 93005; 94640; 94667; 94669; 96365; 96366; 96375; 99285; A9270; G0378; J0456; J0696; J7030; J7512; Q9967